=== PATIENT | female | born 1945 | race Caucasian/White ===

== ENCOUNTER → 2016-07-08 | Outpatient (REF) | payer OTHER, MEDICARE ==
[2016-07-10 00:07] LABS: Lyme Disease IgG/IgM Antibodie <0.91 ISR (0.00-0.90); Lyme Disease IgM Ab Quantitati <0.80 index (0.00-0.79)
== END ==
LOC: M LAB REF 12:26
PROVIDERS: ATTEND Nurse Practitioner Family
DX: R21 Rash and other nonspecific skin eruption (principal)

== ENCOUNTER → 2016-07-22 | Outpatient (CLI) | payer MEDICARE, BC, OTHER ==
--- NOTE | 2016-07-23 03:50 | REP ---
Clinical: Pain. Technique: AP, lateral, bilateral oblique views of the left foot. Findings: Age-related degenerative changes are appreciated primarily involving the interphalangeal joints and tarsometatarsal joints. Lateral view demonstrates large calcaneal heal spur. No acute fracture dislocation. Surrounding soft tissues are unremarkable. Impression: Age-related degenerative changes as noted above. Signed by Richard Calzada MD 07/23/2016 03:41 A
== END ==
LOC: M WUC 18:58
PROVIDERS: ATTEND Physician Assistant
DX: M79.672 Pain in left foot (principal)

== ENCOUNTER → 2016-09-11 | Outpatient (REF) | payer MEDICARE, OTHER, BC ==
[~2016-09-11] MED LIST: CALC600T31 PO; CALC600T57 PO; CLAR10CA3 PO; GLUC500T53 PO; HAIRTAB5 PO; LEVO88TA3 PO; OMEP40CA2 PO; REFR0.5D8 OU; SUCR1TA PO; TIMO0.5S4 OD; VITA2000 PO; VITMTA PO
== END ==
LOC: M LAB REF 16:38
PROVIDERS: ATTEND Nurse Practitioner Adult Health
DX: R35.0 Frequency of micturition (principal); Z57.8 Occupational exposure to other risk factors

== ENCOUNTER 2017-01-09 12:43 | Observation (INO) | payer MEDICARE, BC, OTHER ==
[~2017-01-09] VITALS: Ht 157.5 cm; Wt 58.2 kg
[2017-01-09] MEDS ORDERED: VITA2000 PO (12:59)
[2017-01-09] MEDS ORDERED: CALC600T57 PO (12:59)
[2017-01-09] MEDS ORDERED: LEVO88TA3 PO (12:59)
[2017-01-09] MEDS ORDERED: SUCR1TA PO (12:59)
[2017-01-09] MEDS ORDERED: GLUC500T53 PO (12:59)
[2017-01-09] MEDS ORDERED: OMEP40CA2 PO (12:59)
[2017-01-09] MEDS ORDERED: CLAR10CA3 PO (12:59)
--- NOTE | 2017-01-09 13:35 | REP ---
CT of the brain without IV contrast: Comparison is 05/24/2003. There is a 1.4 cm density at the vertex , para falcine on the right . This was not present previously and could represent a focal hemorrhage or a mass. MRI is recommended for further evaluation. There is no other evidence of hemorrhage or mass. The cortical stripe is unremarkable. Ventricles and sulci are mildly dilated compatible with diffuse volume loss. There is no edema, mass effect or midline shift. The visualized paranasal sinuses and mastoid air cells are clear. Impression: Focal hemorrhage versus mass at the vertex, para falcine on the right, not present previously. MRI follow-up is recommended. Otherwise, negative CT of the brain. Sign taking Signed by Abhi Virk MD 01/09/2017 01:26 P
[2017-01-09 13:40] LABS: BASO % 0.6 % (0.0-1.0); EOS # 0.1 10^3/uL (0.0-0.50); EOS % 1.2 % (0.0-3.0); IMMATURE GRANULOCYTE % 0.2 % (0-0); LYMPH # 1.8 10^3/uL (1.5-4.5); LYMPH % 27.7 % (24.0-44.0); MEAN CORPUSCULAR HEMOGLOBIN 30.3 pg (27.0-33.0); MEAN CORPUSCULAR HGB CONC 32.8 g/dl (32.0-36.5); MEAN CORPUSCULAR VOLUME 92.4 fl (80.0-96.0); MONO # 0.8 10^3/uL (0.0-0.8); MONO % 11.5 % (0.0-5.0); NEUTROPHILS # 3.8 10^3/uL (1.8-7.7); NEUTROPHILS % 58.8 % (36.0-66.0); PLATELET COUNT, AUTOMATED 278 10^3/uL (150-450); RED CELL DISTRIBUTION WIDTH 13.3 % (11.5-14.5); WHITE BLOOD COUNT 6.5 10^3/uL (4.0-10.0)
[2017-01-09 13:53] LABS: INR 0.96
[2017-01-09 14:06] LABS: ANION GAP 7 MEQ/L (8-16); BLOOD UREA NITROGEN 14 MG/DL (7-18); CALCIUM LEVEL 8.7 MG/DL (8.8-10.2); CARBON DIOXIDE LEVEL 29 MEQ/L (21-32); CHLORIDE LEVEL 105 MEQ/L (98-107); CREATININE FOR GFR 0.78 MG/DL (0.55-1.02); GLOMERULAR FILTRATION RATE > 60.0 (>39); GLUCOSE, FASTING 95 MG/DL (83-110); MAGNESIUM LEVEL 2.4 MG/DL (1.8-2.4); SODIUM LEVEL 141 MEQ/L (136-145); T UPTAKE 33 % (30-39); THYROXINE (T4) 10.9 UG/DL (4.5-12.0)
[2017-01-09 14:09] LABS: FOLATE > 24.0 NG/ML (>5.4); VITAMIN B12 LEVEL 853 PG/ML (247-911)
[2017-01-09] MEDS ORDERED: MORPHINE 2 MG/ML 1ML SYRINGE IV ONE (14:15)
[2017-01-09] MEDS ORDERED: ONDANSETRON 4MG/2ML VIAL (J2405) IV ONE (14:15)
[2017-01-09] MEDS ORDERED: PROHANCE 279.3MG/ML 15ML VIAL (A9576) As Ordered ONE (15:02)
--- NOTE | 2017-01-09 15:41 | REP ---
MR angiography the brain without contrast: History: Mass versus bleed at the vertex. Comparison is made with today's CT study of the brain. Technique: 3-D [id number] MR angiography of the brain is acquired in the usual fashion and maximal intensity projection images were generated in rotational format about the vertical and horizontal axes. In addition, source axial T1-weighted images are viewed in cine mode. MR angiographic findings: The distal vertebral arteries are patent and co-dominant. Basilar artery is a little tortuous but widely patent. The posterior cerebral and superior cerebellar vessels are normal and symmetric. The distal internal carotid arteries are unremarkable. Anterior and middle cerebral arteries appear intact. There is no visible saha aneurysm or arteriovenous malformation. Impression: Unremarkable MR angiography the brain. Signed by Jose Chahal MD 01/09/2017 03:33 P
[2017-01-09] MEDS ORDERED: ASPIRIN 81 MG CHEW TABLET PO ONE (16:15)
--- NOTE | 2017-01-09 16:21 | REP ---
MRI brain without and with IV gadolinium: History: Today's CT study showed a 1.4 cm density at the apex on the right side. MRI imaging was recommended. Gadolinium enhancement dose: 14 mL of intravenous ProHance. MR technique: Axial coronal and sagittal imaging planes utilized. T1 and T2-weighted sequences include spin-echo, fast spin echo, FLAIR, and diffusion weighted scans. MRI findings: No bony calvarial defect is seen. No intraorbital abnormality is seen. There is no MR evidence of significant paranasal sinus disease. The nodule seen on CT is noted to be a pleural-based nodule, 1.3 cm in greatest diameter, this is attached to the dural surface of the vertex. It is essentially isointense with brain on precontrast study. It enhances homogeneously on postcontrast images and is felt to be a benign meningioma. No other intracranial mass lesion is seen. No other abnormal gadolinium enhancement is seen. Craniocervical junction and upper cervical cord are normal in appearance. Diffusion weighted scan show no evidence to suggest infarction or other cause of restricted diffusion. There are some scattered small vessel atherosclerotic changes in the periventricular white matter and there is minimal diffuse atrophy. Impression: Minimal diffuse atrophy and small vessel changes. 1.3 cm benign meningioma in the right vertex. No other significant finding. Signed by Jose Chahal MD 01/09/2017 07:17 P
[2017-01-09] MEDS ORDERED: ACETAMINOPHEN TAB 650MG DOSE (2X325MG) PO PRN (17:00)
[2017-01-09] MEDS ORDERED: ONDANSETRON 4MG/2ML VIAL (J2405) IV PRN (17:00)
[2017-01-09] MEDS ORDERED: PERCOCET 5MG/325MG TAB PO PRN (17:00)
[2017-01-09] MEDS ORDERED: REFR0.5D8 OU (17:02)
[2017-01-09] MEDS ORDERED: VITMTA PO (17:02)
[2017-01-09] MEDS ORDERED: TIMO0.5S4 OD (17:02)
[2017-01-09] MEDS ORDERED: HAIRTAB5 PO (17:02)
[2017-01-09] MEDS ORDERED: CALC600T31 PO (17:02)
[2017-01-09 17:39] LABS: CHOLESTEROL LEVEL 239 MG/DL (<200); TRIGLYCERIDES LEVEL 112 MG/DL (<150)
--- NOTE | 2017-01-09 18:08 | HPE ---
DATE OF ADMISSION: 01/09/2017 PRIMARY CARE PROVIDER: Dr. Arvin Kirk HISTORY OF PRESENT ILLNESS: This patient is a 71-year-old female with a history significant for hypothyroidism, gastroesophageal reflux disease (GERD), who presented to [facility] on 01/09/2017 for worsening left facial burning sensation and difficulty finding correct speech. During the encounter, patient's was also present in the room. Information was gathered from both the patient and patient's . Patient started having a burning sensation and some numbness of the left lower jaw and the sensation also occurring in the left cheek. It started approximately 3-4 months ago and the symptoms started to become worse and become more frequent. In the last six months, the patient has been having difficulty finding the right word to express herself and on a few occasions, people think she has slurred speech. In the past three weeks, patient noted the sensation that her tongue has felt swollen. Patient also has started to feel palpations in the left neck. Patient is not sure whether she has a visual disturbance. Patient had recent eye surgery and patient is in process of getting the correct lenses. An MRI was performed in the emergency room. Patient was found to have a benign hemangioma of the right side and hospitalist team was called for admission. PAST MEDICAL HISTORY: 1. Hypothyroidism. 2. Gastroesophageal reflux disease (GERD). 3. Hiatal hernia. PAST SURGICAL HISTORY: 1. Eye surgery in 2017. 2. Tonsillectomy. SOCIAL HISTORY: Denied smoking. Drinks beer or wine two times a week. Denies any recreational drug use. OBJECTIVE: VITAL SIGNS: Temperature 98.9, pulse 57, respirations 18, blood pressure 155/71, pulse oximetry 99% on room air. GENERAL: No signs of acute distress. Alert and oriented times three. HEENT: Normocephalic, atraumatic. Extraocular motor grossly intact. CARDIOVASCULAR: Positive S1, S2. Regular rate. RESPIRATORY: Clear to auscultation bilaterally. ABDOMEN: Nontender, nondistended. Bowel sounds present. MUSCULOSKELETAL: No lower extremity edema. No signs of cyanosis. NEUROLOGICAL: Patient's speech is tangential, since patient has been using the wrong words to express herself, not as fluent. Cranial nerves II-XII grossly intact. Sensation to fine touch is enhanced on the left cheek and left jaw. Otherwise, sensation is grossly intact bilaterally. Strength 5/5. LABORATORY DATA: WBC 6.5, hemoglobin 12.7, hematocrit 38.7, platelet count 278. Sodium 141, potassium 4, chloride 105, carbon dioxide 29, BUN 14, creatinine 0.18, GFR greater than 60, fasting glucose 95, calcium 8.7, magnesium 2.4. Total CK: 84. Troponin-I: Less than 0.02. Vitamin B12: 853. Folic acid: Greater than 24. TSH: 1.52. Free T4 level: 10.9. PT: 12.9. INR: 0.96. IMAGING STUDIES: CT of the head without contrast showed focal hemorrhages versus mass at the vertex. Para falcine on the right. MRA of the brain without contrast showed an unremarkable angiogram of the brain. MRI of the brain with and without contrast showed minimal diffuse atrophy and small vessel changes, 1.3 cm benign meningioma in the right vertex. No other significant findings. ASSESSMENT AND PLAN: 1. Left facial tingling and numbness. Admitted to the progressive care unit (PCU) under observation status. Patient's MRI found patient has a 1.3 cm benign meningioma. Case discussed with neurology, Dr. Atkins. It is most likely patient symptoms are due to the hemangioma. Transient ischemic attack (TIA) and stroke are part of the differential based on patient's history and imaging study, not high on the differential. Patient does complain about a pulsating sensation of the left neck. Go forward with a carotid ultrasound. Initially, Dr. Burns was contacted by the emergency physician and was informed that there was no intervention for the patient. 2. Hypothyroidism. Continue Synthroid. TSH and Free T4 within normal range. 3. Gastroesophageal reflux disease (GERD). On Protonix. 4. Deep venous thrombosis (DVT) prophylaxis. On heparin.
[2017-01-09 18:30] VITALS: BP 134/61
[2017-01-09 20:00] VITALS: BP 112/57
--- NOTE | 2017-01-09 20:00 | REPUSA ---
Clinicaly History: left facial tingling. Findings: Real-Time carotid duplex ultrasound with color Doppler flow was performed. Normal color Dop pler flow and arterial waveforms are noted. Mild atherosclerotic plaque is seen in the region of the carotid bulbs bilaterally. No elevated velocities are seen however. Antegrade blood flow is seen in t he vertebral arteries bilaterally. There is no evidence of subclavian steal. The right ICA/CCA ratio measures 0.87, and the left measures 0.84. Impression: No evidence of hemodynamically significant stenosis in the carotid arterial system bilate rally. Mild atherosclerotic plaque is seen in the region of the carotid bulbs bilaterally.
[2017-01-09] MEDS: HEPARIN SOD (PORCINE) 5000 UNITS/ML VIAL SC SCH (22:47)
[2017-01-10] VITALS: BP 127/58
[2017-01-10 04:00] VITALS: BP 133/61
--- NOTE | 2017-01-10 04:32 | ECGEPIP ---
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
[2017-01-10 05:22] LABS: MEAN CORPUSCULAR HEMOGLOBIN 30.4 pg (27.0-33.0); MEAN CORPUSCULAR HGB CONC 33.3 g/dl (32.0-36.5); MEAN CORPUSCULAR VOLUME 91.3 fl (80.0-96.0); PLATELET COUNT, AUTOMATED 271 10^3/uL (150-450); RED CELL DISTRIBUTION WIDTH 13.4 % (11.5-14.5); WHITE BLOOD COUNT 7.2 10^3/uL (4.0-10.0)
[2017-01-10 05:33] LABS: ANION GAP 7 MEQ/L (8-16); BLOOD UREA NITROGEN 15 MG/DL (7-18); CALCIUM LEVEL 8.5 MG/DL (8.8-10.2); CARBON DIOXIDE LEVEL 27 MEQ/L (21-32); CHLORIDE LEVEL 108 MEQ/L (98-107); CREATININE FOR GFR 0.62 MG/DL (0.55-1.02); GLOMERULAR FILTRATION RATE > 60.0 (>39); GLUCOSE, FASTING 93 MG/DL (83-110); MAGNESIUM LEVEL 2.3 MG/DL (1.8-2.4); SODIUM LEVEL 142 MEQ/L (136-145)
[2017-01-10] MEDS ORDERED: LEVOTHYROXINE 88MCG TABLET (0.088 MG) PO SCH (06:00)
[2017-01-10] MEDS: HEPARIN SOD (PORCINE) 5000 UNITS/ML VIAL SC SCH ×2 (06:45→13:33)
[2017-01-10 08:00] VITALS: BP 110/56
[2017-01-10] MEDS ORDERED: MULTIVITAMINS/MINERALS THERAP 1 TAB PO SCH (09:00)
[2017-01-10] MEDS ORDERED: LORATADINE 10 MG TAB PO SCH (09:00)
[2017-01-10] MEDS ORDERED: PANTOPRAZOLE 40MG TAB (PROTONIX) PO SCH (09:00)
[2017-01-10] MEDS ORDERED: TIMOLOL MALEATE 0.5% OPHTH SOLN 5 ML OD SCH (09:00)
[2017-01-10 12:00] VITALS: BP 121/56
[2017-01-10 16:00] VITALS: BP 127/59
--- NOTE | 2017-01-10 16:50 | DSES ---
DATE OF ADMISSION: 01/09/2017 DATE OF DISCHARGE: 01/10/2017 PRIMARY CARE PROVIDER: Delfino Franco. REFERRING PHYSICIAN: None. CONSULTING PHYSICIAN: Dr. Unique Atkins. CONDITION ON DISCHARGE: Stable. FINAL DIAGNOSIS: Left-sided facial numbness and tingling, possibly secondary to nerve compression. PROCEDURES: None. HISTORY OF PRESENT ILLNESS: The patient is a 71-year-old female with past medical history of hypothyroidism, hiatal hernia and gastroesophageal reflux disease (GERD), who presented to the emergency room (ER) with complaints of left-sided facial burning sensation and difficulty finding the correct words to speak. The patient was admitted for possible transient ischemic attack (TIA) versus trigeminal neuralgia. Neurology was consulted. HOSPITAL COURSE: 1. Left-sided facial tingling and numbness, possibly secondary to trigeminal nerve impingement secondary to the way the patient sleeps. The patient had symptoms occur more often when depending on position. Physical did not reveal any sensation deficit or weakness of the facial muscles. Labs were within normal limits. Imaging head CT, brain MRI, brain MRA, and vascular ultrasound did not reveal any signs of acute stroke; however, did reveal signs of 1.3 cm benign meningioma in the right vertex. Neurology was consulted, and cleared for discharge and advised outpatient followup. The patient was advised to followup with neurology as an outpatient. The patient was cleared from neurology standpoint. 2. Hypothyroidism. Continue with Synthroid. 3. GERD/hiatal hernia. Continue Protonix. 4. Deep venous thrombosis (DVT) prophylaxis. Continue with heparin. DISCHARGE MEDICATIONS: The patient is being discharged home with the following medication list: - calcium 600 mg by mouth daily - Refresh tears one drop each eye as needed for dry eyes - levothyroxine 88 mcg by mouth daily - loratadine 10 mg by mouth daily - multiple vitamin one tablet by mouth daily - omeprazole 40 mg by mouth daily - timolol eye drops one drop in each eye daily DISCHARGE INSTRUCTIONS: The patient has been advised to followup with primary care provider as well as neurology within the next seven days. She has been advised to remain compliant with treatment plan and medications, and to return to the emergency room if she continues with any problems. TIME SPENT ON DISCHARGE: Greater than 35 minutes.
[2017-01-11 00:06] LABS: Lyme Disease IgG/IgM Antibodie <0.91 ISR (0.00-0.90); Lyme Disease IgM Ab Quantitati <0.80 index (0.00-0.79)
--- NOTE | 2017-01-11 14:32 | ECHO ---
DATE OF STUDY: 01/10/2017 REFERRING PHYSICIAN: Dr. Kristine Ulloa INDICATION: Transient cerebral ischemia, unspecified. HEIGHT: 61 inches. WEIGHT: 154 pounds. 2-D Measurements: Aortic root: 3.2 cm Proximal ascending aorta: 3.0 cm Left atrium: 3.7 cm Ventricular septum: 0.97 cm Posterior wall: 0.96 cm Left ventricle diastole: 4.3 cm Left ventricle systole: 2.8 cm Right ventricle: 2.9 cm Doppler Measurements: Aortic valve velocity: 124 cm/sec LVOT velocity: 130 cm/sec LVOT VTI: 28.1 cm Mild mitral regurgitation Mitral E velocity: 131 cm/sec Mitral A velocity: 127 cm/sec Mitral deceleration time: 169 ms Mild tricuspid regurgitation Estimated right ventricle systolic pressure: 26 mmHg assuming a right atrial pressure 5 mmHg MITRAL ANNULAR TISSUE DOPPLER: E-prime lateral: 10.3 cm/sec E-prime septal: 9.7 cm/sec DESCRIPTION: The rhythm was sinus. Image quality was fair. No pericardial effusion. This was a 2-D, M-mode, color flow Doppler and pulse wave Doppler examination, including mitral annular tissue Doppler. CONCLUSIONS: 1. Normal left ventricle internal dimensions and wall thickness. 2. Normal regional LV wall motion and wall thickening. Normal LV systolic function with LVEF 65% by visual estimate. Normal LV diastolic function. 3. Mild mitral annular calcification. Mild mitral regurgitation. 4. Left pleural effusion. 5. Otherwise normal appearing echocardiogram-Doppler.
--- NOTE | 2017-01-12 15:34 | CR ---
DATE OF CONSULTATION: 01/09/2017 REFERRING PROVIDER: Kristine Ulloa DO REASON FOR CONSULTATION: Left facial paresthesias. HISTORY OF PRESENTING ILLNESS: Chiquis French is a 71-year-old female with a past medical history significant for hypothyroidism, presenting with a chief complaint of having intermittent symptoms of left lower jaw paresthesias described as a warm feeling and sometimes tingling feeling, worsening when she sleeps on her left side of her face. She denies any sharp shooting lancinating pains. The paresthesias are not worsened by chewing or talking. The patient denies having any headaches. She has not had any other neurological symptoms associated with this. She denies any weakness or numbness of her arms or legs. She denies any chest pain, shortness of breath, or dizziness. In the emergency department, the patient had an MRI of the brain with and without contrast showing diffuse enhancement of a 1.3 cm right of the vertex meningioma. The patient did not have any stenosis of the carotid blood vessels and MR angiogram of the head was negative. The patient was given aspirin 325 mg once in the emergency department. She is being admitted for a transient ischemic attack (TIA) workup. She will be on telemetry monitoring during the hospital admission. The patient herself denies any sudden change or neurological symptom occurring within the last 24-48 hours. She states that she has been having difficulty with her speech over the last 6 months, sometimes having difficulty finding the right word to say on occasion. She denies any dysarthria or dysphonia or dysphagia. PAST MEDICAL HISTORY: Hypothyroidism, gastroesophageal reflux disease, hiatal hernia. PAST SURGICAL HISTORY: Eye surgery in 2006, tonsillectomy. FAMILY HISTORY: Noncontributory. ALLERGIES: No known drug allergies. SOCIAL HISTORY: The patient denies use of any tobacco or any illicit drugs. Occasionally drinks wine. PHYSICAL EXAMINATION: Blood pressure 110/56, pulse rate 71, respiratory rate 19, temperature 99.1 degrees Fahrenheit, oxygenation 96% on room air. The patient is awake, alert, oriented to person, place, and time. Speech, language, comprehension, and repetition are intact. Pupils are 3 mm, round, and reactive to light. Extraocular movements are intact in all directions. Sensation V1, V2, V3 are intact to light touch. There is no facial asymmetry to activation. Palate elevates symmetrically. Tongue is midline. There is no weakness of sternocleidomastoids bilaterally. Hearing is subjectively equal to finger rub. There is no pronator drift. Strength is 5/5 including bilateral deltoid, biceps, triceps, hand home health care coordinator, iliopsoas, quadriceps, anterior tibialis. Deep tendon reflexes are 2s in the upper extremities, reduced in the lower extremities. Romberg testing deferred. Sensory is intact to light touch, temperature in all four extremities and the face bilaterally. Coordination normal [id number] without any signs of ataxia or dysmetria. ASSESSMENT: 1. Transient intermittent paresthesias of the left lower face resulting from sleeping on the left side of her face. 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 Incidental finding of a 1.3 cm right of the vertex meningioma. 2. Intermittent difficulty with word finding. PLAN: 1. Recommend outpatient observation management for the right-sided meningioma. 2. Recommend avoiding sleeping on the left side of the face causing transient compression of the V3 branch of the 5th cranial nerve. 3. MR angiogram does not reveal any aneurysm or any other intravascular mass. 4. Hold off on starting any neuropathic pain medication as the paresthesias of the left lower face is not painful. 5. Complete transient ischemic attack (TIA) workup. 6. Case discussed with Dr. Ishmael Raya.
== END 2017-01-10 17:31 | disposition home or self-care (01) ==
LOC: EDBD 12:43 → M ED 12:43 → M ED INP 16:49 → M PCU 18:22
PROVIDERS: ADMIT Internal Medicine; ATTEND Internal Medicine
DX: R20.2 Paresthesia of skin (principal); E03.9 Hypothyroidism, unspecified; K21.9 Gastro-esophageal reflux disease without esophagitis; K44.9 Diaphragmatic hernia without obstruction or gangrene; D32.9 Benign neoplasm of meninges, unspecified; I77.1 Stricture of artery; G31.9 Degenerative disease of nervous system, unspecified; Z79.899 Other long term (current) drug therapy
CPT/HCPCS: 36415; 70450; 70544; 70553; 80048; 80061; 82550; 82553; 82607; 82746; 83735; 84436; 84443; 84479; 84484; 85025; 85027; 85610; 85730; 86617; 93005; 93041; 93306; 93880; 94760; 96372; 99285; A9576; G0378

== ENCOUNTER → 2017-04-28 | Outpatient (REF) | payer MEDICARE, BC, OTHER ==
[2017-04-28 17:46] LABS: CREATININE FOR GFR 0.73 MG/DL (0.55-1.30); GLOMERULAR FILTRATION RATE > 60.0 (>39)
[2017-04-28 17:46] LABS: BLOOD UREA NITROGEN 14 MG/DL (7-18)
== END ==
LOC: M LABNEURO 15:45
DX: I10 Essential (primary) hypertension (principal)
CPT/HCPCS: 82565

== ENCOUNTER → 2017-08-06 | Outpatient (CLI) | payer MEDICARE, BC, OTHER ==
[2017-08-06 16:31] LABS: BASO # 0.1 10^3/uL (0.0-0.2); BASO % 0.8 % (0.0-1.0); EOS # 0.1 10^3/uL (0.0-0.50); EOS % 1.8 % (0.0-3.0); HEMOGLOBIN 12.5 g/dl (12.0-15.5); IMMATURE GRANULOCYTE % 0.3 % (0-3.0); LYMPH # 1.7 10^3/uL (1.5-4.5); LYMPH % 26.7 % (24.0-44.0); MEAN CORPUSCULAR HEMOGLOBIN 30.6 pg (27.0-33.0); MEAN CORPUSCULAR HGB CONC 32.1 g/dl (32.0-36.5); MEAN CORPUSCULAR VOLUME 95.6 fl (80.0-96.0); MONO # 0.8 10^3/uL (0.0-0.8); MONO % 12.3 % (0.0-5.0); NEUTROPHILS # 3.6 10^3/uL (1.8-7.7); NEUTROPHILS % 58.1 % (36.0-66.0); PLATELET COUNT, AUTOMATED 315 10^3/uL (150-450); RED BLOOD COUNT 4.08 10^6/uL (4.00-5.40); RED CELL DISTRIBUTION WIDTH 13.5 % (11.5-14.5); WHITE BLOOD COUNT 6.2 10^3/uL (4.0-10.0)
[2017-08-06 17:01] LABS: ALBUMIN 3.5 GM/DL (3.2-5.2); ALBUMIN/GLOBULIN RATIO 1.03 (1.00-1.93); ALKALINE PHOSPHATASE 93 U/L (45-117); ALT/SGPT 22 U/L (12-78); ANION GAP 6 MEQ/L (8-16); AST/SGOT 18 U/L (7-37); BILIRUBIN,TOTAL 0.3 MG/DL (0.2-1.0); BLOOD UREA NITROGEN 16 MG/DL (7-18); CALCIUM LEVEL 8.7 MG/DL (8.8-10.2); CARBON DIOXIDE LEVEL 30 MEQ/L (21-32); CHLORIDE LEVEL 108 MEQ/L (98-107); CREATININE FOR GFR 0.69 MG/DL (0.55-1.30); GLOMERULAR FILTRATION RATE > 60.0 (>39); GLUCOSE, FASTING 79 MG/DL (70-100); POTASSIUM SERUM 4.4 MEQ/L (3.5-5.1); SODIUM LEVEL 144 MEQ/L (136-145); TOTAL PROTEIN 6.9 GM/DL (6.4-8.2)
== END ==
LOC: M WUC 10:52
DX: R10.84 Generalized abdominal pain (principal)
CPT/HCPCS: 80053

== ENCOUNTER 2017-08-24 15:00 | Observation (INO) | payer MEDICARE, BC, OTHER ==
[2017-08-24 15:39] LABS: BASO # 0.1 10^3/uL (0.0-0.2); BASO % 0.6 % (0.0-1.0); EOS # 0.1 10^3/uL (0.0-0.50); EOS % 1.2 % (0.0-3.0); HEMATOCRIT 40.4 % (36.0-47.0); HEMOGLOBIN 13.2 g/dl (12.0-15.5); IMMATURE GRANULOCYTE % 0.4 % (0-3.0); LYMPH # 1.8 10^3/uL (1.5-4.5); LYMPH % 21.5 % (24.0-44.0); MEAN CORPUSCULAR HEMOGLOBIN 30.2 pg (27.0-33.0); MEAN CORPUSCULAR HGB CONC 32.7 g/dl (32.0-36.5); MEAN CORPUSCULAR VOLUME 92.4 fl (80.0-96.0); MONO # 0.8 10^3/uL (0.0-0.8); MONO % 9.2 % (0.0-5.0); NEUTROPHILS # 5.6 10^3/uL (1.8-7.7); NEUTROPHILS % 67.1 % (36.0-66.0); PLATELET COUNT, AUTOMATED 287 10^3/uL (150-450); RED BLOOD COUNT 4.37 10^6/uL (4.00-5.40); RED CELL DISTRIBUTION WIDTH 13.1 % (11.5-14.5); WHITE BLOOD COUNT 8.3 10^3/uL (4.0-10.0)
[2017-08-24 16:07] LABS: INR 0.91; PARTIAL THROMBOPLASTIN TIME 30.3 SECONDS (26.8-37.9); PROTHROMBIN TIME 12.3 SECONDS (12.4-14.5)
[2017-08-24 16:18] LABS: ANION GAP 4 MEQ/L (8-16); BLOOD UREA NITROGEN 14 MG/DL (7-18); CALCIUM LEVEL 8.8 MG/DL (8.8-10.2); CARBON DIOXIDE LEVEL 31 MEQ/L (21-32); CHLORIDE LEVEL 108 MEQ/L (98-107); CK-MB VALUE MASS 2.3 NG/ML (<3.6); CPK CREATINE PHOSPHOKINASE 115 U/L (26-192); CREATININE FOR GFR 0.76 MG/DL (0.55-1.30); GLOMERULAR FILTRATION RATE > 60.0 (>39); GLUCOSE, FASTING 147 MG/DL (70-100); POTASSIUM SERUM 3.6 MEQ/L (3.5-5.1); SODIUM LEVEL 143 MEQ/L (136-145); TROPONIN I < 0.02 NG/ML (< 0.10)
[2017-08-24] MEDS: ASPIRIN 325 MG TAB PO ×2 (17:33)
[2017-08-24] MEDS ORDERED: ONDANSETRON 4MG/2ML VIAL (J2405) IV ×2 (21:15)
[2017-08-24] MEDS ORDERED: LORATADINE 10 MG TAB PO ×2 (21:15)
[2017-08-24] MEDS: MECLIZINE 25 MG TABLET PO ×2 (22:00)
[2017-08-25] MEDS: LEVOTHYROXINE 88MCG TABLET (0.088 MG) PO ×2 (05:39)
[2017-08-25 06:18] LABS: HEMATOCRIT 38.7 % (36.0-47.0); MEAN CORPUSCULAR HEMOGLOBIN 30.7 pg (27.0-33.0); MEAN CORPUSCULAR HGB CONC 33.6 g/dl (32.0-36.5); MEAN CORPUSCULAR VOLUME 91.3 fl (80.0-96.0); PLATELET COUNT, AUTOMATED 286 10^3/uL (150-450); RED BLOOD COUNT 4.24 10^6/uL (4.00-5.40); RED CELL DISTRIBUTION WIDTH 13.2 % (11.5-14.5); WHITE BLOOD COUNT 7.5 10^3/uL (4.0-10.0)
[2017-08-25 06:39] LABS: ALBUMIN 3.2 GM/DL (3.2-5.2); ALBUMIN/GLOBULIN RATIO 0.86 (1.00-1.93); ALKALINE PHOSPHATASE 80 U/L (45-117); ALT/SGPT 18 U/L (12-78); ANION GAP 6 MEQ/L (8-16); AST/SGOT 16 U/L (7-37); BILIRUBIN,TOTAL 0.4 MG/DL (0.2-1.0); BLOOD UREA NITROGEN 11 MG/DL (7-18); CALCIUM LEVEL 8.5 MG/DL (8.8-10.2); CARBON DIOXIDE LEVEL 28 MEQ/L (21-32); CHLORIDE LEVEL 110 MEQ/L (98-107); CREATININE FOR GFR 0.67 MG/DL (0.55-1.30); GLOMERULAR FILTRATION RATE > 60.0 (>39); GLUCOSE, FASTING 89 MG/DL (70-100); MAGNESIUM LEVEL 2.4 MG/DL (1.8-2.4); POTASSIUM SERUM 3.8 MEQ/L (3.5-5.1); SODIUM LEVEL 144 MEQ/L (136-145); TOTAL PROTEIN 6.9 GM/DL (6.4-8.2)
[2017-08-25] MEDS: OMEPRAZOLE 20 MG CAP PO ×2 (08:09)
[2017-08-25] MEDS: MECLIZINE 25 MG TABLET PO ×2 (08:09)
[2017-08-25] MEDS: ACETAMINOPHEN TAB 650MG DOSE (2X325MG) PO ×4 (08:11→19:00)
[2017-08-25] MEDS: ENOXAPARIN 30 MG/0.3 ML SYR (J1650) SC ×2 (08:12)
[2017-08-25] MEDS ORDERED: MECLIZINE 12.5 MG TAB PO ×2 (19:45)
[2017-08-25] MEDS: TIMOLOL MALEATE 0.5% OPHTH SOLN 5 ML OU ×2 (20:37)
[2017-08-26] MEDS: LEVOTHYROXINE 88MCG TABLET (0.088 MG) PO ×2 (05:52)
[2017-08-26 07:05] LABS: HEMATOCRIT 41.1 % (36.0-47.0); HEMOGLOBIN 13.7 g/dl (12.0-15.5); MEAN CORPUSCULAR HEMOGLOBIN 30.4 pg (27.0-33.0); MEAN CORPUSCULAR HGB CONC 33.3 g/dl (32.0-36.5); MEAN CORPUSCULAR VOLUME 91.3 fl (80.0-96.0); PLATELET COUNT, AUTOMATED 299 10^3/uL (150-450); RED CELL DISTRIBUTION WIDTH 13.2 % (11.5-14.5); WHITE BLOOD COUNT 8.3 10^3/uL (4.0-10.0)
[2017-08-26 07:42] LABS: ALBUMIN 3.4 GM/DL (3.2-5.2); ALBUMIN/GLOBULIN RATIO 0.85 (1.00-1.93); ALKALINE PHOSPHATASE 86 U/L (45-117); ALT/SGPT 19 U/L (12-78); ANION GAP 10 MEQ/L (8-16); AST/SGOT 13 U/L (7-37); BILIRUBIN,TOTAL 0.3 MG/DL (0.2-1.0); BLOOD UREA NITROGEN 16 MG/DL (7-18); CALCIUM LEVEL 8.7 MG/DL (8.8-10.2); CARBON DIOXIDE LEVEL 26 MEQ/L (21-32); CHLORIDE LEVEL 108 MEQ/L (98-107); CREATININE FOR GFR 0.84 MG/DL (0.55-1.30); GLOMERULAR FILTRATION RATE > 60.0 (>39); GLUCOSE, FASTING 112 MG/DL (70-100); MAGNESIUM LEVEL 2.3 MG/DL (1.8-2.4); POTASSIUM SERUM 4.1 MEQ/L (3.5-5.1); SODIUM LEVEL 144 MEQ/L (136-145); TOTAL PROTEIN 7.4 GM/DL (6.4-8.2)
[2017-08-26] MEDS: ENOXAPARIN 30 MG/0.3 ML SYR (J1650) SC ×2 (09:00)
[2017-08-26] MEDS: ASPIRIN 81 MG ENTERIC TAB PO ×2 (09:25)
== END 2017-08-26 11:45 | disposition home or self-care (01) ==
LOC: M MS4PR 08-25 16:29 → M ED 15:00 → M ED INP 21:13 → M MSPAV 23:54
DX: R42 Dizziness and giddiness (principal); E03.9 Hypothyroidism, unspecified; K21.9 Gastro-esophageal reflux disease without esophagitis; R20.9 Unspecified disturbances of skin sensation; D32.0 Benign neoplasm of cerebral meninges; I67.82 Cerebral ischemia; R51 Headache; H40.9 Unspecified glaucoma; K44.9 Diaphragmatic hernia without obstruction or gangrene; Z79.899 Other long term (current) drug therapy
CPT/HCPCS: J1650

== ENCOUNTER 2017-08-28 13:15 | Outpatient (RCR) | payer MEDICARE, BC, OTHER | END 2017-09-12 | LOC: M PT 13:15 | DX: Z51.89 Encounter for other specified aftercare (principal); H81.20 Vestibular neuronitis, unspecified ear | CPT/HCPCS: 97110 ==

== ENCOUNTER 2017-09-23 11:15 | Outpatient (RCR) | payer MEDICARE, BC, OTHER | END 2017-10-13 | LOC: M PT 09-30 09:00 | DX: Z51.89 Encounter for other specified aftercare (principal); H81.20 Vestibular neuronitis, unspecified ear | CPT/HCPCS: 97110 ==

== ENCOUNTER → 2018-02-09 | Outpatient (CLI) | payer MEDICARE, BC, OTHER | LOC: M WUC 09:48 | DX: R05 Cough (principal); M51.24 Other intervertebral disc displacement, thoracic region | CPT/HCPCS: 71046 ==

== ENCOUNTER → 2018-03-24 | Outpatient (REF) | payer MEDICARE, OTHER ==
[~2018-03-24] MED LIST changes: +ASPI81TAEC PO; +MECL12.575 PO; -TIMO0.5S4 OD; +TIMO0.5S42 OU
[2018-03-28 08:37] LABS: F024-IgE Shrimp <0.10 kU/L (Class 0); F037-IGE MUSSEL <0.10 kU/L (Class 0); F338-IgE Oyster <0.10 kU/L (Class 0); F338-IgE Scallop <0.10 kU/L (Class 0)
== END ==
LOC: M LAB REF 17:11
PROVIDERS: ATTEND Internal Medicine
DX: R22.1 Localized swelling, mass and lump, neck (principal); Z91.018 Allergy to other foods; T78.1XXA Other adverse food reactions, not elsewhere classified, initial encounter; X58.XXXA Exposure to other specified factors, initial encounter; Y92.9 Unspecified place or not applicable

== ENCOUNTER → 2018-07-15 | Outpatient (CLI) | payer MEDICARE, OTHER ==
--- NOTE | 2018-07-15 12:37 | REP ---
UNILATERAL LEFT RIBS, PA CHEST, SIX VIEWS: HISTORY: Contusion. COMPARISON: 02/09/2018 The lungs are clear. The heart is normal in size. A pericardial cyst is present along the right heart border. The pulmonary vasculature is normal in appearance. The bony structure is intact. IMPRESSION: No acute disease. Electronically Signed by Mickey Jarrell MD 07/15/2018 12:43 P
== END ==
LOC: M WUC 11:50
PROVIDERS: ATTEND Physician Assistant
DX: S20.212A Contusion of left front wall of thorax, initial encounter (principal); X58.XXXA Exposure to other specified factors, initial encounter; Y92.89 Other specified places as the place of occurrence of the external cause

== ENCOUNTER → 2018-10-20 | Outpatient (REF) | payer MEDICARE, OTHER ==
[2018-10-20 16:21] LABS: BLOOD UREA NITROGEN 12 MG/DL (7-18); CREATININE FOR GFR 0.76 MG/DL (0.55-1.30); GLOMERULAR FILTRATION RATE > 60.0 (>39)
== END ==
LOC: M LABNEURO 13:05
PROVIDERS: ATTEND Psychiatry & Neurology Neurology
DX: I10 Essential (primary) hypertension (principal)

== ENCOUNTER 2019-01-11 13:27 | Outpatient (RCR) | payer MEDICARE, BC, OTHER ==
[~2019-01-11 13:27] MED LIST changes: -OMEP40CA2 PO; +OMEP40CA97 PO
== END 2019-01-13 ==
LOC: M ST 13:27
PROVIDERS: ATTEND Psychiatry & Neurology Neurology
DX: R47.01 Aphasia (principal)

== ENCOUNTER 2019-01-19 01:18 | Emergency (ER) | payer MEDICARE, BC, OTHER ==
[~2019-01-19] VITALS: Ht 157.5 cm; Wt 64.5 kg
[2019-01-19 01:43] LABS: BASO # 0.1 10^3/uL (0.0-0.2); BASO % 0.3 % (0.0-1.0); EOS # 0.1 10^3/uL (0.0-0.5); EOS % 0.5 % (0.0-3.0); HEMATOCRIT 40.8 % (36.0-47.0); HEMOGLOBIN 13.3 g/dl (12.0-15.5); LYMPH # 1.5 10^3/uL (1.5-5.0); LYMPH % 6.3 % (24.0-44.0); MEAN CORPUSCULAR HEMOGLOBIN 30.8 pg (27.0-33.0); MEAN CORPUSCULAR HGB CONC 32.6 g/dl (32.0-36.5); MEAN CORPUSCULAR VOLUME 94.4 fl (80.0-96.0); MONO % 10.5 % (0.0-5.0); NEUTROPHILS # 19.4 10^3/uL (1.5-8.5); NEUTROPHILS % 81.8 % (36.0-66.0); PLATELET COUNT, AUTOMATED 311 10^3/uL (150-450); RED BLOOD COUNT 4.32 10^6/uL (4.00-5.40); WHITE BLOOD COUNT 23.7 10^3/uL (4.0-10.0)
[2019-01-19 02:08] LABS: ALBUMIN 3.9 GM/DL (3.2-5.2); ALT/SGPT 23 U/L (12-78); BILIRUBIN,DIRECT 0.1 MG/DL (0.0-0.2); BILIRUBIN,TOTAL 0.3 MG/DL (0.2-1.0); CK-MB VALUE MASS 1.8 NG/ML (<3.6); CPK CREATINE PHOSPHOKINASE 95 U/L (26-192); LIPASE 160 U/L (73-393); MB/CK RELATIVE INDEX 1.89 (< OR =4); TOTAL PROTEIN 7.5 GM/DL (6.4-8.2); TROPONIN I < 0.02 NG/ML (< 0.10)
[2019-01-19] MEDS ORDERED: ISOVUE-370 76% 100ML VIAL (Q9967) As Ordered ONE (02:12)
[2019-01-19 02:14] LABS: MONO # 2.5 10^3/uL (0.0-0.8)
[2019-01-19] MEDS: ONDANSETRON 4MG/2ML VIAL (J2405) IV ONE ×2 (02:14→02:28)
[2019-01-19] MEDS ORDERED: NS 1,000 ML IV ONE (02:15)
[2019-01-19] MEDS ORDERED: KETOROLAC 30 MG/ML VIAL (J1885) IV ONE (02:15)
--- NOTE | 2019-01-19 03:13 | REPVR ---
PROCEDURE INFORMATION: Exam: CT Abdomen And Pelvis With Contrast Exam date and time: 01/19/2019 2:06 AM Clinical history: 73 years old, female; Generalized abd pain TECHNIQUE: Imaging protocol: Computed tomography of the abdomen and pelvis with intravenous contrast. Radiation optimization: All CT scans at this facility use at least one of these dose optimization techniques: automated exposure control; mA and/or kV adjustment per patient size (includes targeted exams where dose is matched to clinical indication); or iterative reconstruction. Contrast material: ISO; Contrast volume: 100 ml; Contrast route: AC; COMPARISON: CT ABD PELVIS WITH CONTRAST 04/03/2012 11:00 AM FINDINGS: Lungs: The imaged lung bases are clear. Heart: There is a 7.4 cm right pericardial cyst, which is stable compared to the prior CT on 04/03/2012. Diaphragm: There is a small fat containing right posterior diaphragmatic hernia. Liver: There are several cysts in the liver, the largest measuring 2.3 cm in the right hepatic lobe, some of which are larger compared to the prior CT on 04/03/2012. There is a chronic 2.1 cm wedge shaped region of low attenuation in the periphery of the superior medial segment 4A of the left hepatic lobe, which is stable compared to the prior CT on 04/03/2012. The contour of the liver is smooth. No hepatomegaly is noted. Gallbladder and bile ducts: No calcified gallstones are seen. No gallbladder wall thickening, pericholecystic fluid, or pericholecystic inflammatory changes are identified. No dilation of the intrahepatic or extrahepatic bile ducts is noted. Pancreas: Normal. No ductal dilation. Spleen: Normal. No splenomegaly. Adrenals: Normal. No mass. Kidneys and ureters: The kidneys are normal in appearance. No renal lesion is identified. No calculi are seen in the kidneys or ureters. There is no hydronephrosis or hydroureter. There are no wedge-shaped areas of low attenuation in the kidneys to suggest pyelonephritis. There is no renal abscess or perinephric fluid collection. Stomach and bowel: There is a 12 mm metallic density structure in the proximal transverse colon (image 63 of the axial series 201), which is new compared to the prior CT on 04/03/2012. There is colonic diverticulosis without evidence for diverticulitis. There is no evidence for a bowel obstruction, pneumatosis intestinalis, intussusception, volvulus, or perforated viscus. The transverse colon, descending colon, and rectosigmoid are decompressed, limiting their optimal evaluation. There is possible thickening of the wall of the transverse colon, descending colon, and sigmoid colon, which may be secondary to the decompressed state of these portions of the colon versus a colitis. There is no pericolonic inflammatory fat stranding. There is liquid feces in the cecum, ascending colon, and transverse colon. Appendix: Normal. No evidence for appendicitis. Intraperitoneal space: Unremarkable. No fluid collection. No free air. Retroperitoneal space: Unremarkable. No fluid collection. No mass. Vasculature: The abdominal aorta is patent, normal in caliber, and there is no dissection. The renal arteries, celiac artery, superior mesenteric artery, inferior mesenteric artery, iliac arteries, and common femoral arteries are patent. There are moderate atherosclerotic calcifications. The portal veins, splenic vein, superior mesenteric vein, inferior mesenteric vein, and renal veins are patent. Incidental note is made of small round calcifications in the pelvis, which are compatible with phleboliths. Lymph nodes: Normal. No enlarged lymph nodes. Bladder: Unremarkable. No calculi or masses are noted in the bladder. Reproductive: The anteverted uterus and ovaries are unremarkable. Incidental note is made of several punctate calcifications in the left ovary that can also be seen in the prior CT on 04/03/2012. Bones/joints: There are chronic bilateral L5 pars defects. No acute fracture is noted. There is no suspicious osteolytic or osteoblastic lesion. Incidental note is made of a small bone island in the right femoral head, which is unchanged compared to the prior CT on 04/03/2012. There is a mild levoscoliosis of the lumbar spine and degenerative changes in the lumbar spine. There is also osteoarthritis of the pubic symphysis. Soft tissues: Unremarkable. No hernia. IMPRESSION: 1. Possible thickening of the wall of the transverse colon, descending colon, and sigmoid colon, which may be secondary to the decompressed state of these portions of the colon versus a colitis. 2. Colonic diverticulosis without evidence for diverticulitis. 3. 12 mm metallic density structure in the proximal transverse colon, which should be correlated with the patient's ingestion history. Electronically signed by: Sudheer Manzanares On 01/19/2019 03:13:25 AM
[2019-01-19 03:30] VITALS: BP 106/56
[2019-01-19] MEDS ORDERED: ONDA4TAB6 PO (03:32)
--- NOTE | 2019-01-19 05:47 | ECGEPIP ---
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
== END 2019-01-19 03:47 | disposition home or self-care (01) ==
LOC: M ED 01:18
DX: K52.9 Noninfective gastroenteritis and colitis, unspecified (principal); T18.4XXA Foreign body in colon, initial encounter; K57.30 Diverticulosis of large intestine without perforation or abscess without bleeding; K21.9 Gastro-esophageal reflux disease without esophagitis; Z79.82 Long term (current) use of aspirin; Z79.899 Other long term (current) drug therapy
CPT/HCPCS: 74177; 80047; 80076; 82550; 82553; 83690; 84484; 85025; 93005; 93041; 96361; 96374; 96375; 99284; J1885; J2405; Q9967

== ENCOUNTER 2019-02-01 13:30 | Outpatient (RCR) | payer MEDICARE, BC, OTHER ==
[~2019-02-01 13:30] MED LIST changes: +ONDA4TAB6 PO
== END 2019-02-12 ==
LOC: M ST 13:30
PROVIDERS: ATTEND Psychiatry & Neurology Neurology
DX: R47.01 Aphasia (principal)

== ENCOUNTER → 2019-04-19 | Outpatient (CLI) | payer MEDICARE, BC, OTHER ==
[~2019-04-19] MED LIST changes: -MECL12.575 PO; +MECL12.589 PO
--- NOTE | 2019-04-19 14:58 | REP ---
Lumbar spine five views: Comparison is the abdomen/pelvis CT dated 01/19/2019. There is mild scoliosis convex left. There is degenerative disc disease at every lumbar level, most advanced at L4-5 and L5 S1. There are bilateral L5 pars interarticularis defects. There is no spondylolisthesis. The pedicles are unremarkable. There is facet osteoarthritis at the lower lumbar levels. The sacroiliac articulations are unremarkable. Impression: Multilevel degenerative disc disease, most severe at the the lower lumbar levels. Bilateral L5 spondylolysis. No spondylolisthesis. Facet osteoarthritis at the lower lumbar levels. Mild scoliosis. Electronically Signed by Abhi Virk MD 04/19/2019 02:50 P
--- NOTE | 2019-04-19 14:59 | REP ---
Right hip two views: Mineralization and joint space are normal. There is no femoral head deformity. There are no calcifications or foreign bodies. There is no fracture or dislocation. Impression: Negative right hip. If symptoms persist or worsen, consider MRI. Electronically Signed by Abhi Virk MD 04/19/2019 02:50 P
== END ==
LOC: M WUC 14:00
PROVIDERS: ATTEND Physician Assistant
DX: S76.011S Strain of muscle, fascia and tendon of right hip, sequela (principal); S39.012A Strain of muscle, fascia and tendon of lower back, initial encounter; M51.36 Other intervertebral disc degeneration, lumbar region; M41.86 Other forms of scoliosis, lumbar region; X58.XXXA Exposure to other specified factors, initial encounter; Y92.9 Unspecified place or not applicable

== ENCOUNTER 2020-06-21 16:51 | Emergency (ER) | payer MEDICARE, BC, OTHER ==
[~2020-06-21] VITALS: Ht 154.9 cm; Wt 61.6 kg
[~2020-06-21 16:51] MED LIST changes: +ASPI-569 PO; -ASPI81TAEC PO; +MECL-136 PO; -MECL12.589 PO
[2020-06-21 17:52] LABS: BASO % 0.4 % (0.0-1.0); EOS % 0.4 % (0.0-3.0); HEMATOCRIT 39.6 % (36.0-47.0); HEMOGLOBIN 12.9 g/dl (12.0-15.5); LYMPH # 1.9 10^3/uL (1.5-5.0); LYMPH % 27.6 % (24.0-44.0); MEAN CORPUSCULAR HEMOGLOBIN 30.6 pg (27.0-33.0); MEAN CORPUSCULAR HGB CONC 32.6 g/dl (32.0-36.5); MEAN CORPUSCULAR VOLUME 94.1 fl (80.0-96.0); MONO # 0.8 10^3/uL (0.0-0.8); MONO % 10.9 % (2.0-8.0); NEUTROPHILS # 4.1 10^3/uL (1.5-8.5); NEUTROPHILS % 60.3 % (36.0-66.0); PLATELET COUNT, AUTOMATED 267 10^3/uL (150-450); RED BLOOD COUNT 4.21 10^6/uL (4.00-5.40); WHITE BLOOD COUNT 6.9 10^3/uL (4.0-10.0)
--- NOTE | 2020-06-21 17:59 | REP ---
INDICATION: CVA. COMPARISON: PA and lateral chest dated 02/09/[address] dated 01/19/2019. TECHNIQUE: Portable AP chest with the patient sitting. FINDINGS: The lung khoury are clear. Cardiac size is normal. The laverne, mediastinum and skeletal structures are unremarkable except for a right pericardial cyst, unchanged from the comparison studies.. IMPRESSION: Right pericardial cyst, otherwise, essentially negative PA and lateral chest <Electronically signed by Abhi Virk > 06/21/20 [id number]
--- NOTE | 2020-06-21 17:59 | REPVR ---
PROCEDURE INFORMATION: Exam: CT Head Without Contrast Exam date and time: 06/21/2020 5:30 PM Age: 75 years old Clinical indication: Other: CVA; Additional info: CVA - nursing interventions must not delay CT TECHNIQUE: Imaging protocol: Computed tomography of the head without contrast. Radiation optimization: All CT scans at this facility use at least one of these dose optimization techniques: automated exposure control; mA and/or kV adjustment per patient size (includes targeted exams where dose is matched to clinical indication); or iterative reconstruction. Other technique: STROKE PROTOCOL was implemented. COMPARISON: CT Head without contrast 08/24/2017 3:36 PM FINDINGS: Brain: Moderate hypoattenuating foci are noted in the posterior superior periatrial and anterior lateral ventricular periventricular white matter bilaterally. No intracranial hemorrhage. No acute cortical infarction identified. Cerebral ventricles: Prominence of the ventricular system and subarachnoid spaces is consistent with the patient's age of 75 years. Bones/joints: No acute abnormality. No acute fracture. Paranasal sinuses: Interval partial opacification of the frontal sinus Mastoid air cells: Visualized mastoid air cells are well aerated. Vasculature: Atherosclerotic calcifications are present involving the carotid artery siphons bilaterally. Soft tissues: Unremarkable. Other findings: 14.5 mm extra-axial right vertex mildly hyperattenuating lesion redemonstrated. IMPRESSION: 1. Age appropriate supratentorial and infratentorial atrophy. 2. Moderate chronic white matter microvascular ischemic disease. 3. No acute intracranial abnormality identified. 4. Extra-axial right vertex probable meningioma, stable. 5. Incidental paranasal sinus disease as above. ASSESSMENT: ASPECTS ([place] Stroke Program Early CT Score) is 10. Electronically signed by: Arvin Correa On 06/21/2020 18:00:09 PM
[2020-06-21 18:06] LABS: INR 1.01; PARTIAL THROMBOPLASTIN TIME 31.3 SECONDS (24.2-38.5); PROTHROMBIN TIME 13.5 SECONDS (12.5-14.3)
[2020-06-21 18:16] LABS: BLOOD UREA NITROGEN 15 MG/DL (7-18); CALCIUM LEVEL 9.4 MG/DL (8.8-10.2); CARBON DIOXIDE LEVEL 28 MEQ/L (21-32); CHLORIDE LEVEL 106 MEQ/L (98-107); CK-MB VALUE MASS 1.6 NG/ML (<3.6); CPK CREATINE PHOSPHOKINASE 95 U/L (26-192); CREATININE FOR GFR 0.71 MG/DL (0.55-1.30); GLOMERULAR FILTRATION RATE > 60.0 (>39); GLUCOSE, FASTING 90 MG/DL (70-100); MB/CK RELATIVE INDEX 1.68 (< OR =4); POTASSIUM SERUM 3.7 MEQ/L (3.5-5.1); SODIUM LEVEL 140 MEQ/L (136-145); TROPONIN I < 0.02 NG/ML (< 0.10)
--- NOTE | 2020-06-21 22:42 | REPVR ---
PROCEDURE INFORMATION: Exam: MR Head Without Contrast Exam date and time: 06/21/2020 9:54 PM Age: 75 years old Clinical indication: Walking, difficulty and other: Vertigo unsteady ? cerebellar infarct TECHNIQUE: Imaging protocol: MR of the head without contrast. COMPARISON: 1. CT Head without contrast 2020-06-21 17:37 2. MRI-Brain without Contrast 2017-08-24 19:08 FINDINGS: Brain: Mild chronic FLAIR signal hyperintensity within the periventricular white matter. No midline shift, mass, fluid collection, or evidence of acute hemorrhage. No brain parenchymal diffusion restriction to suggest acute ischemia or infarction. Cerebral ventricles: Moderate ventricular enlargement. Bones/joints: Unremarkable. Paranasal sinuses: Normal as visualized. No acute sinusitis. Mastoid air cells: Trace mastoid effusions. Orbital cavity: Unremarkable. Soft tissues: Unremarkable. IMPRESSION: No acute findings. Electronically signed by: Tomás Leblanc On 06/21/2020 22:43:06 PM
--- NOTE | 2020-06-21 22:44 | REPVR ---
PROCEDURE INFORMATION: Exam: MRA Head Without Contrast; Arteriography Exam date and time: 06/21/2020 9:54 PM Age: 75 years old Clinical indication: Dizziness and giddiness and weakness; Additional info: Vertigo unsteady ? cerebellar infarct TECHNIQUE: Imaging protocol: Magnetic resonance angiography head without contrast. Exam focused on the arteries. COMPARISON: 1. MRA BRAIN W/O CONTRAST 2017-08-24 18:58 2. MRA BRAIN W/O CONTRAST 2017-01-09 15:03 FINDINGS: ANTERIOR CIRCULATION: Right internal carotid artery: Intracranial segment is patent with no significant stenosis. No aneurysm. Right middle cerebral artery: No occlusion or significant stenosis. No aneurysm. Right anterior cerebral artery: No occlusion or significant stenosis. No aneurysm. Left internal carotid artery: Intracranial segment is patent with no significant stenosis. No aneurysm. Left middle cerebral artery: No occlusion or significant stenosis. No aneurysm. Left anterior cerebral artery: No occlusion or significant stenosis. No aneurysm. POSTERIOR CIRCULATION: Right vertebral artery: No occlusion or significant stenosis. No aneurysm. Left vertebral artery: No occlusion or significant stenosis. No aneurysm. Basilar artery: No occlusion or significant stenosis. No aneurysm. Right posterior cerebral artery: No occlusion or significant stenosis. No aneurysm. Left posterior cerebral artery: No occlusion or significant stenosis. No aneurysm. IMPRESSION: No stenosis or occlusion. Electronically signed by: Tomás Leblanc On 06/21/2020 22:45:29 PM
[2020-06-21 23:54] VITALS: BP 156/71
--- NOTE | 2020-06-22 08:38 | ECGEPIP ---
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
--- NOTE | 2020-06-23 07:23 | ED PDOC ---
Post-Departure Follow-Up radiology report faxed to Renu Torres MD Jun 23, 2020 07:23
== END 2020-06-22 00:17 | disposition home or self-care (01) ==
LOC: M ED 16:51
DX: R42 Dizziness and giddiness (principal); E07.9 Disorder of thyroid, unspecified; K21.9 Gastro-esophageal reflux disease without esophagitis; G31.01 Pick's disease; G50.0 Trigeminal neuralgia; R90.82 White matter disease, unspecified; J34.89 Other specified disorders of nose and nasal sinuses; I31.8 Other specified diseases of pericardium; Z79.82 Long term (current) use of aspirin; Z79.899 Other long term (current) drug therapy

== ENCOUNTER 2020-08-31 12:27 | Emergency (ER) | payer MEDICARE, BC, OTHER ==
[~2020-08-31] VITALS: Ht 154.9 cm; Wt 61.4 kg
[~2020-08-31 12:27] MED LIST changes: +OMEP40CA4 PO; -OMEP40CA97 PO
--- NOTE | 2020-08-31 13:31 | REPVR ---
PROCEDURE INFORMATION: Exam: CT Head Without Contrast Exam date and time: 08/31/2020 1:10 PM Age: 75 years old Clinical indication: Altered mental status/memory loss TECHNIQUE: Imaging protocol: Computed tomography of the head without contrast. Radiation optimization: All CT scans at this facility use at least one of these dose optimization techniques: automated exposure control; mA and/or kV adjustment per patient size (includes targeted exams where dose is matched to clinical indication); or iterative reconstruction. COMPARISON: MRI-Brain without Contrast 06/21/2020 9:55 PM FINDINGS: Brain: There is a stable 1.5 cm meningioma along the right vertex. There is no acute intracranial hemorrhage or mass effect. Moderate diffuse volume loss is within the range of normal for patient age. There are small vessel ischemic changes within the periventricular and subcortical white matter, but the normal sim-white matter delineation is maintained. Cerebral ventricles: Prominence of the ventricular system is commensurate with volume loss. Paranasal sinuses: There is focal frontal sinus mucosal thickening. Mastoid air cells: Visualized mastoid air cells are well aerated. Bones/joints: Unremarkable. No acute fracture. Soft tissues: Unremarkable. IMPRESSION: No acute hemorrhage or edema. Electronically signed by: Lor Zimmerman On 08/31/2020 13:31:34 PM
[2020-08-31 14:18] LABS: BASO % 0.5 % (0.0-1.0); EOS % 0.4 % (0.0-3.0); HEMATOCRIT 40.5 % (36.0-47.0); LYMPH # 1.6 10^3/uL (1.5-5.0); LYMPH % 20.8 % (24.0-44.0); MEAN CORPUSCULAR HEMOGLOBIN 30.4 pg (27.0-33.0); MEAN CORPUSCULAR HGB CONC 32.1 g/dl (32.0-36.5); MEAN CORPUSCULAR VOLUME 94.6 fl (80.0-96.0); MONO # 0.9 10^3/uL (0.0-0.8); MONO % 12.1 % (2.0-8.0); NEUTROPHILS % 65.8 % (36.0-66.0); PLATELET COUNT, AUTOMATED 278 10^3/uL (150-450); RED BLOOD COUNT 4.28 10^6/uL (4.00-5.40); WHITE BLOOD COUNT 7.6 10^3/uL (4.0-10.0)
[2020-08-31 14:47] LABS: ALBUMIN 3.4 GM/DL (3.2-5.2); ALT/SGPT 22 U/L (12-78); BILIRUBIN,DIRECT < 0.1 MG/DL (0.0-0.2); BILIRUBIN,TOTAL 0.3 MG/DL (0.2-1.0); BLOOD UREA NITROGEN 13 MG/DL (7-18); CALCIUM LEVEL 8.8 MG/DL (8.8-10.2); CARBON DIOXIDE LEVEL 31 MEQ/L (21-32); CHLORIDE LEVEL 108 MEQ/L (98-107); CK-MB VALUE MASS 1.9 NG/ML (<3.6); CPK CREATINE PHOSPHOKINASE 146 U/L (26-192); GLOMERULAR FILTRATION RATE > 60.0 (>39); GLUCOSE, FASTING 81 MG/DL (70-100); POTASSIUM SERUM 4.4 MEQ/L (3.5-5.1); SODIUM LEVEL 141 MEQ/L (136-145); THYROID STIMULATING HORMONE 0.661 uIU/ML (0.358-3.740); TOTAL PROTEIN 6.8 GM/DL (6.4-8.2); TROPONIN I < 0.02 NG/ML (< 0.10)
[2020-08-31 16:57] VITALS: BP 128/63
--- NOTE | 2020-09-01 06:55 | ECGEPIP ---
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
== END 2020-08-31 17:08 | disposition home or self-care (01) ==
LOC: EDBD 12:27 → M ED 12:27
DX: R41.82 Altered mental status, unspecified (principal); G50.0 Trigeminal neuralgia; Z79.82 Long term (current) use of aspirin; Z79.890 Hormone replacement therapy; Z79.899 Other long term (current) drug therapy; Z86.69 Personal history of other diseases of the nervous system and sense organs; Z98.890 Other specified postprocedural states; Z86.73 Personal history of transient ischemic attack (TIA), and cerebral infarction without residual deficits

== ENCOUNTER → 2020-10-26 | Outpatient (REF) | payer MEDICARE, OTHER, BC ==
[2020-10-26 18:37] LABS: PERCENT SATURATION 20.8 % (13.2-45.0)
== END ==
LOC: M LAB REF 16:55
PROVIDERS: ATTEND Internal Medicine
DX: K30 Functional dyspepsia (principal)

== ENCOUNTER 2020-11-20 09:14 | Emergency (ER) | payer MEDICARE, OTHER, BC ==
[~2020-11-20] VITALS: Ht 157.5 cm; Wt 53.6 kg
[2020-11-20] MEDS ORDERED: OMEP-218 (09:44)
[2020-11-20] MEDS ORDERED: SERT50TA29 (09:44)
[2020-11-20 12:06] LABS: BASO % 0.4 % (0.0-1.0); HEMATOCRIT 42.1 % (36.0-47.0); HEMOGLOBIN 13.7 g/dl (12.0-15.5); LYMPH # 1.6 10^3/uL (1.5-5.0); LYMPH % 15.5 % (24.0-44.0); MEAN CORPUSCULAR HEMOGLOBIN 30.5 pg (27.0-33.0); MEAN CORPUSCULAR HGB CONC 32.5 g/dl (32.0-36.5); MEAN CORPUSCULAR VOLUME 93.8 fl (80.0-96.0); MONO % 9.9 % (2.0-8.0); NEUTROPHILS # 7.5 10^3/uL (1.5-8.5); NEUTROPHILS % 73.7 % (36.0-66.0); PLATELET COUNT, AUTOMATED 291 10^3/uL (150-450); RED BLOOD COUNT 4.49 10^6/uL (4.00-5.40); WHITE BLOOD COUNT 10.1 10^3/uL (4.0-10.0)
[2020-11-20] MEDS ORDERED: GI COCKTAIL 50ML BTL(HYOSCYAMINE/MAALOX/LIDOCAINE VISCOUS)(1:3:1) PO ONE (12:15)
[2020-11-20 12:57] LABS: ALBUMIN 3.6 GM/DL (3.2-5.2); ALT/SGPT 26 U/L (12-78); BILIRUBIN,DIRECT 0.1 MG/DL (0.0-0.2); BILIRUBIN,TOTAL 0.3 MG/DL (0.2-1.0); BLOOD UREA NITROGEN 12 MG/DL (7-18); CALCIUM LEVEL 9.2 MG/DL (8.8-10.2); CARBON DIOXIDE LEVEL 29 MEQ/L (21-32); CHLORIDE LEVEL 105 MEQ/L (98-107); CREATININE FOR GFR 0.67 MG/DL (0.55-1.30); GLOMERULAR FILTRATION RATE > 60.0 (>39); GLUCOSE, FASTING 99 MG/DL (70-100); LIPASE 81 U/L (73-393); POTASSIUM SERUM 3.5 MEQ/L (3.5-5.1); SODIUM LEVEL 141 MEQ/L (136-145); TOTAL PROTEIN 6.9 GM/DL (6.4-8.2)
--- NOTE | 2020-11-20 13:10 | REP ---
INDICATION: abd pain COMPARISON: Comparison CT study abdomen and pelvis January 19, 2019. TECHNIQUE: Helical scanning is acquired and 3 mm axial images were reformatted. Coronal and sagittal MPR images were generated and reviewed. 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 Axial images show mild linear fibrosis in the right middle lobe. The lung bases are otherwise clear. There is a right cardiophrenic angle pericardial cyst again noted unchanged from the comparison study from January 19, 2019. This measures 7.1 cm in greatest anteroposterior dimension. There are multiple stable hepatic cysts also again noted. These are also unchanged. No focal splenic lesion is seen. Normal adrenal glands are seen. No abnormality is noted within the pancreas or the gallbladder. There is scattered right and left colonic diverticulosis without CT evidence of diverticulitis. No uterine or urinary bladder abnormality is seen. There are and rounded calcifications in the left adnexa consistent with phleboliths. No ovarian mass or significant cyst is observed. A normal appendix is seen in the right lower quadrant. These findings are unchanged from pelvic CT images January of 2019. The kidneys are morphologically intact. No hydronephrosis or ureteral stone. IMPRESSION: No urinary tract calculus or hydronephrosis seen. Normal appendix. Scattered pancolonic diverticulosis. Stable hepatic cysts. Stable right-sided pericardial cyst at the cardio phrenic angle. <Electronically signed by Max Chahal > 11/20/20 [id number]
[2020-11-20] MEDS ORDERED: DICY20TA11 PO (13:40)
[2020-11-20 13:53] VITALS: BP 155/72
== END 2020-11-20 14:01 | disposition home or self-care (01) ==
LOC: M ED 09:14
DX: K29.70 Gastritis, unspecified, without bleeding (principal); R10.9 Unspecified abdominal pain; Z86.73 Personal history of transient ischemic attack (TIA), and cerebral infarction without residual deficits; K57.30 Diverticulosis of large intestine without perforation or abscess without bleeding; K76.89 Other specified diseases of liver; I31.8 Other specified diseases of pericardium; Z79.82 Long term (current) use of aspirin; Z79.899 Other long term (current) drug therapy

== ENCOUNTER 2020-12-22 11:10 | Observation (INO) | payer MEDICARE, OTHER, BC ==
[~2020-12-22] VITALS: Ht 160 cm; Wt 55.5 kg
[~2020-12-22 11:10] MED LIST changes: +DICY20TA11 PO; +OMEP-218; +SERT50TA29 PO
[2020-12-22] MEDS ORDERED: PANT40TA29 PO (11:23)
[2020-12-22] MEDS ORDERED: ISOVUE-370 76% 100ML VIAL As Ordered ONE (11:29)
--- NOTE | 2020-12-22 11:45 | REP ---
INDICATION: CVA COMPARISON: 06/21/2020 TECHNIQUE: Portable AP view of the chest FINDINGS: The mediastinum and cardiac silhouette are stable and within normal limits for portable technique. The lung khoury are clear without acute consolidation, effusion, or pneumothorax. Skeletal structures demonstrate degenerative changes primarily involving the left shoulder and thoracic spine.. IMPRESSION: No acute cardiopulmonary process appreciated. <Electronically signed by Richard Calzada > 12/22/20 [id number]
--- NOTE | 2020-12-22 12:07 | REP ---
INDICATION: CVA - Nursing interventions must not delay CT COMPARISON: 08/31/2020 TECHNIQUE: Axial noncontrast images from the skull base to the thoracic inlet with coronal reformations. This CT examination was performed using the following dose reduction techniques: Automated exposure control, adjustment of mA and/or kv according to the patient's size, and use of iterative reconstruction technique. FINDINGS: Age-related atrophy with periventricular leukomalacia and microvascular ischemic changes are again appreciated. Stable 1.8 cm meningioma identified at the right vertex adjacent to the falx. The ventricles and sulci are symmetric. Manrique-white differentiation is maintained. There is no evidence for acute intracranial hemorrhage, mass/mass effect, pathology or infarction. No extra-axial fluid collection. Calvarium is intact. Paranasal sinuses and mastoid air cells are clear. IMPRESSION: Atrophy and microvascular ischemic changes. Stable meningioma. No acute intracranial hemorrhage, infarction, or mass/mass effect. <Electronically signed by Richard Calzada > 12/22/20 [id number]
--- NOTE | 2020-12-22 12:09 | REP ---
INDICATION: CVA - Nursing interventions must not delay CT. COMPARISON: None. TECHNIQUE: CT contrast dose: 100 ml of intravenous Isovue 370. Axial contrast-enhanced images were obtained from the skull base to the vertex with coronal reformations using 100 cc Isovue 370 intravenous contrast material. Maximal intensity projection and multiplanar re-formation images along with 3-D rendered imaging of the arterial vasculature. FINDINGS: The [id number] and visualized vertebrobasilar system appear intact and normal. Vasculature to the bilateral hemispheres appear symmetric. No obvious arteriovenous malformation or aneurysm detected. Remainder of the examination appears essentially normal. IMPRESSION: Normal CT angiography of the head. No obvious arteriovenous malformation or aneurysm. Vasculature to the bilateral hemispheres and posterior fossa appear symmetric. <Electronically signed by Richard Calzada > 12/22/20 [id number]
--- NOTE | 2020-12-22 12:11 | REP ---
INDICATION: CVA - Nursing interventions must not delay CT. COMPARISON: None. TECHNIQUE: Axial contrast-enhanced images were obtained from the thoracic inlet to the skull base with coronal and sagittal reformations using 100 cc Isovue 370 intravenous contrast material. Maximal intensity projection and multiplanar re-formation images along with 3-D rendered imaging of the arterial vasculature. This CT examination was performed using the following dose reduction techniques: Automated exposure control, adjustment of mA and/or kv according to the patient's size, and the use of iterative reconstruction technique. FINDINGS: The common carotid arteries, carotid bulbs and visualized portions of the external and the internal carotid arteries are normal. The vertebral arteries are patent and symmetric. There are no atherosclerotic lesions, areas of significant stenosis or occlusion identified. No obvious vascular abnormality noted.. IMPRESSION: Normal CT angiography of the neck <Electronically signed by Richard Calzada > 12/22/20 [id number]
[2020-12-22 12:14] LABS: BASO # 0.1 10^3/uL (0.0-0.2); BASO % 0.5 % (0.0-1.0); EOS % 0.2 % (0.0-3.0); HEMATOCRIT 42.6 % (36.0-47.0); HEMOGLOBIN 13.9 g/dl (12.0-15.5); LYMPH # 1.3 10^3/uL (1.5-5.0); LYMPH % 12.3 % (24.0-44.0); MEAN CORPUSCULAR HGB CONC 32.6 g/dl (32.0-36.5); MEAN CORPUSCULAR VOLUME 95.1 fl (80.0-96.0); MONO # 1.2 10^3/uL (0.0-0.8); MONO % 10.7 % (2.0-8.0); NEUTROPHILS # 8.2 10^3/uL (1.5-8.5); NEUTROPHILS % 75.6 % (36.0-66.0); PLATELET COUNT, AUTOMATED 355 10^3/uL (150-450); RED BLOOD COUNT 4.48 10^6/uL (4.00-5.40); WHITE BLOOD COUNT 10.9 10^3/uL (4.0-10.0)
[2020-12-22 12:26] LABS: INR 1.03; PROTHROMBIN TIME 13.9 SECONDS (12.7-14.5)
[2020-12-22 12:36] LABS: CK-MB VALUE MASS 1.9 NG/ML (<3.6); CPK CREATINE PHOSPHOKINASE 67 U/L (26-192); MB/CK RELATIVE INDEX 2.84 (< OR =4); TROPONIN I < 0.02 NG/ML (< 0.10)
[2020-12-22] MEDS ORDERED: ASPI81TA26 PO (13:19)
[2020-12-22] MEDS ORDERED: SYNT75TA PO (13:19)
[2020-12-22] MEDS ORDERED: HOME MED LIST COMPLETE! XX SCH (13:20)
[2020-12-22 14:24] LABS: RSV AMPLIFICATION NEGATIVE (NEGATIVE)
--- NOTE | 2020-12-22 16:06 | HPEPDOC ---
General Date of Admission Dec 22, 2020 at 13:26 Date of Service: Dec 22, 2020 Chief Complaint The patient is a 75-year-old female admitted with a reason for visit of Aphasia, Dementia. Source: Family, RN/, Old records History of Present Illness 75-year-old female with dementia, progressive aphasia, chronic left-sided facial paresthesias, hypothyroid, GERD was brought into the emergency room because of abnormal behavior noted at around 9 AM this morning by . Last seen normal at about 7:30 AM this morning. Around 8 AM has been found her sitting in her chair staring fixedly in front she could not get any words out. When tried to go out and get help from another family member she grabbed him and would not let him go. She was very fearful and was very agitated when he tried to leave the room. So called EMS and patient was brought to the emergency room. At baseline she is ambulatory and able to have a conversation as per . She feeds herself and dresses herself. On my exam patient appeared to be very fearful she was speaking some words I could understand some words were chest mumbled. Most of her speech was unrelated or in complete sentences which I could not understand however has been seem to be able to get her meaning. When I tried to examine her she was trying to curl up in position cross cover her face with blanket. When has been moved to one side of the room and was out of the patient's eye eyesight she became very agitated. She was able to get out of bed by herself and ambulate to the bathroom with her . She knew her name however did not know where she was in the date. She did answer yes or no to few questions however her history is not at all reliable. All information was taken from and from chart review and ED physician. This looks like a progressive dementia. However need to rule out TIA so the patient is being admitted. Home Medications Scheduled Aspirin (Aspirin EC) 81 Mg Tablet.dr, 81 MG PO DAILY, (Reported) Levothyroxine Sodium (Synthroid) 75 Mcg Tablet, 75 MCG PO QPM, (Reported) Pantoprazole Sodium (Pantoprazole Sodium) 40 Mg Tablet.dr, 40 MG PO DAILY, (Reported) Sertraline HCl (Sertraline HCl) 50 Mg Tablet, 50 MG PO QPM, (Reported) Timolol Maleate (Timoptic) 0.5 % Sandy, 1 DROP OU QHS, (Reported) Allergies Coded Allergies: No Known Allergies (Unverified , 01/19/19) Past Medical History Medical History Hypothyroid Meningioma 13 mm at the right vertex Dementia Progressive Aphasia. Small vessel ischemic disease of brain GERD/hiatal hernia Glaucoma Chronic left sided facial paresthesias BPPV Vertigo Diverticulosis Stable right-sided pericardial cyst Surgical History Tonsillectomy Family History Significant Family History: No pertinent family hx Discussed with the patient's Social History * Smoker: Denies Alcohol: rarely Drugs: denies A-FIB/CHADSVASC A-FIB History Current/History of A-Fib/PAF?: No Review of Systems Constitutional: Reports: Other (Abnormal behavior); Denies: Chills, Fever, Night Sweats Eyes: Denies: Pain, Vision change ENT: Denies: Head Aches, Ear Pain, Dysphagia Pulmonary: Denies: Dyspnea, Cough Cardiovascular: Denies: Chest Pain, Palpitations, Orthopnea, Paroxysmal Noc. Dyspnea, Lt Headedness Gastrointestinal: Denies: Nausea, Vomiting, Abdominal Pain, Diarrhea Genitourinary: Denies: Dysuria, Frequency, Incontinence, Retention Hematologic: Denies: Bruising, Bleeding Excessively Musculoskeletal: Denies: Neck Pain, Back Pain, Joint Pain, Muscle Pain, Spasms Neurological: Reports: Change in speech, Confusion Psych: Reports: Anxiety, Memory Issues Physical Examination General Exam: Positive: Alert, No Acute Distress, Other (Confused and fearful. Tries to turn away from me when doing a physical and tries to cover her face.) Eye Exam: Positive: Conjunctiva & lids normal, EOMI ENT Exam: Positive: Atraumatic, Mucous membr. moist/pink, Pharynx Normal Neck Exam: Positive: Supple; Negative: JVD, thyromegaly Chest Exam: Positive: Clear to auscultation, Normal air movement Heart Exam: Positive: Rate Normal, Regular Rhythm, Normal S1, Normal S2; Negative: Murmurs, Rubs Telemetry: Positive: No significant arrhythmia Abdomen Exam: Positive: Normal bowel sounds, Soft; Negative: Tenderness, Hepatospenomegaly Extremity Exam: Negative: Clubbing, Cyanosis, Edema Neuro Exam: Positive: Normal Gait, Strength at 5/5 X4 ext, Normal Tone Psych Exam: Positive: Anxiety, Other (Oriented only to person) Vital Signs Vital Signs Date Time Temp Pulse Resp B/P (MAP) Pulse Ox O2 Delivery O2 Flow Rate FiO2 12/22/20 13:00 137/66 (89) 12/22/20 12:55 78 99 12/22/20 11:12 97.1 18 Room Air Laboratory Data Labs 24H Laboratory Tests 2 12/22/20 11:20: Immature Granulocyte % (Auto) 0.7, Neutrophils (%) (Auto) 75.6H, Lymphocytes (%) (Auto) 12.3L, Monocytes (%) (Auto) 10.7H, Eosinophils (%) (Auto) 0.2, Basophils (%) (Auto) 0.5, Neutrophils # (Auto) 8.2, Lymphocytes # (Auto) 1.3L, Monocytes # (Auto) 1.2H, Eosinophils # (Auto) 0.0, Basophils # (Auto) 0.1, Nucleated Red Blood Cells % (auto) 0.0, Prothrombin Time 13.9, Prothromb Time International Ratio 1.03, Activated Partial Thromboplast Time 32.0, Total Creatine Kinase 67, Creatine Kinase MB 1.9, Creatine Kinase MB Relative Index 2.84, Troponin I < 0.02 12/22/20 11:30: POC Glucose (Misc Panel) 81, POC Sodium (Misc Panel) 139, POC Potassium (Misc Panel) 3.9, POC Chloride (Misc Panel) 99, POC Total CO2 (Misc Panel) 29.0H, POC Blood Urea Nitrogen (Misc Panel 13, POC Ionized Calcium (Misc Panel) 4.9, POC Creatinine (Misc Panel) 0.8, POC Hematocrit (Misc Panel) 42.0 12/22/20 13:27: Coronavirus (COVID-19)(PCR) NEGATIVE, Influenza Type A (RT-PCR) NEGATIVE, Influenza Type B (RT-PCR) NEGATIVE, Respiratory Syncytial Virus (PCR) NEGATIVE 12/22/20 14:07: Bedside Glucose (Misc Panel) 110 CBC/BMP Laboratory Tests 12/22/20 11:20 Assessment/Plan 75-year-old female with dementia, progressive aphasia, chronic left-sided facial paresthesias, hypothyroid, GERD was brought into the emergency room because of abnormal behavior noted at around 9 AM this morning by . Last seen normal at about 7:30 AM this morning. Around 8 AM has been found her sitting in her chair staring fixedly in front she could not get any words out. When tried to go out and get help from another family member she grabbed him and would not let him go. She was very fearful and was very agitated when he tried to leave the room. So called EMS and patient was brought to the emergency room. At baseline she is ambulatory and able to have a conversation as per . She feeds herself and dresses herself. On my exam patient appeared to be very fearful she was speaking some words I could understand some words were chest mumbled. Most of her speech was unrelated or in complete sentences which I could not understand however has been seem to be able to get her meaning. When I tried to examine her she was trying to curl up in position cross cover her face with blanket. When has been moved to one side of the room and was out of the patient's eye eyesight she became very agitated. She was able to get out of bed by herself and ambulate to the bathroom with her . She knew her name however did not know where she was in the date. She did answer yes or no to few questions however her history is not at all reliable. All information was taken from and from chart review and ED physician. This looks like a progressive dementia. However need to rule out TIA so the patient is being admitted. Rule out TIA CT head chronic microvascular ischemic disease, CT angio of the neck is negative for any acute stenosis, CT angio of the head is also negative. We will get MRI of brain. Monitor under telemetry Dementia likely with progression Not on any meds Progressive aphasia Follows with Dr. Atkins Hypothyroidism. Continue home dose of levothyroxine. GERD. Continue PPI. History of vertigo/BPPV No complaints at this time Plan / VTE VTE Prophylaxis Ordered?: Yes Maxine Monge MD Dec 22, 2020 16:06
--- NOTE | 2020-12-22 19:36 | ECGEPIP ---
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
[2020-12-22] MEDS ORDERED: TIMOLOL MALEATE 0.5% OPHTH SOLN 5 ML OU SCH (21:00)
[2020-12-22] MEDS ORDERED: SERTRALINE HCL 50 MG TAB PO SCH (21:00)
[2020-12-22] MEDS ORDERED: LEVOTHYROXINE 75MCG TABLET (0.075MG) PO SCH (21:00)
[2020-12-23] MEDS ORDERED: OLANZapine 2.5MG TABLET PO PRN (01:20)
[2020-12-23 02:30] VITALS: BP 158/69
[2020-12-23] MEDS ORDERED: LORazepam 2 MG/ML VIAL IM STA (03:14)
[2020-12-23 06:00] VITALS: BP 147/72
--- NOTE | 2020-12-23 08:13 | REPVR ---
PROCEDURE INFORMATION: Exam: MR Head Without Contrast Exam date and time: 12/23/2020 5:50 AM Age: 75 years old Clinical indication: Other: Dementia/aphasia TECHNIQUE: Imaging protocol: MR of the head without contrast. COMPARISON: CT Head without contrast 12/22/2020 11:30 AM FINDINGS: Limitations: There is motion artifact partially degrading examination. Brain: The ventricles and sulci are proportionally enlarged, consistent with age related volume loss / atrophy. There is T2 prolongation in the cerebral white matter, consistent with microvascular disease. Manrique white differentiation is intact. Diffusion weighted images show no restricted diffusion or evidence of acute infarct. Again seen is right paramedian vertex 1.5 cm meningioma as visualized. There is no evidence of edema in adjacent brain. There is no mass effect or midline shift. There is no acute intracranial hemorrhage. There are no extra-axial fluid collections. Cerebral ventricles: Normal. No ventriculomegaly. Bones/joints: Benign hyperostosis frontalis is present. Paranasal sinuses: There is focal mucosal thickening in sphenoid sinuses as before. Mastoid air cells: No significant mastoid effusion. Orbital cavity: There have been bilateral intraocular lens replacements likely related to cataract surgery. Soft tissues: Unremarkable as visualized. Other vasculature: Flow voids in main vascular structures are visualized. IMPRESSION: 1. No evidence of acute intracranial abnormality. No evidence of acute infarction or hemorrhage. 2. Atrophy and microvascular disease. 3. Stable right convexity meningioma. Electronically signed by: Ashtyn Miramontes On 12/23/2020 08:13:04 AM
[2020-12-23] MEDS ORDERED: PANTOPRAZOLE 40MG TAB (PROTONIX) PO SCH (09:00)
[2020-12-23] MEDS ORDERED: ASPIRIN 81MG ENTERIC TABLET PO SCH (09:00)
[2020-12-23] MEDS ORDERED: ENOXAPARIN 40MG/0.4ML SYRINGE (J1650 PER 10MG) SC SCH (09:00)
[2020-12-23] MEDS ORDERED: SERO1TAB3 PO (09:36)
[2020-12-23] MEDS ORDERED: FLUBLOK(EGG FREE)(QUAD)INFLUENZA VACC 0.5ML SYRINGE 18YRS & OLDER IM ONE (10:00)
--- NOTE | 2020-12-24 12:07 | DS.PDOC ---
Discharge Summary General Date of Admission Dec 22, 2020 at 13:26 Date of Discharge 12/23/20 Discharge Summary PROCEDURES PERFORMED DURING STAY: [None]. DISCHARGE DIAGNOSES: Progression of dementia Progressive aphasia Secondary diagnosis: Hypothyroid Meningioma 13 mm at the right vertex Dementia Progressive Aphasia. Small vessel ischemic disease of brain GERD/hiatal hernia Glaucoma Chronic left sided facial paresthesias BPPV Vertigo Diverticulosis Stable right-sided pericardial cyst COMPLICATIONS/CHIEF COMPLAINT: Aphasia, Dementia. HOSPITAL COURSE:75-year-old female with dementia, progressive aphasia, chronic left-sided facial paresthesias, hypothyroid, GERD was brought into the emergency room because of abnormal behavior noted at around 9 AM this morning by . Last seen normal at about 7:30 AM this morning. Around 8 AM has been found her sitting in her chair staring fixedly in front she could not get any words out. When tried to go out and get help from another family member she grabbed him and would not let him go. She was very fearful and was very agitated when he tried to leave the room. So called EMS and patient was brought to the emergency room. At baseline she is ambulatory and able to have a conversation as per . She feeds herself and dresses herself. On my exam patient appeared to be very fearful she was speaking some words I could understand some words were chest mumbled. Most of her speech was unrelated or in complete sentences which I could not understand however has been seem to be able to get her meaning. When I tried to examine her she was trying to curl up in position cross cover her face with blanket. When has been moved to one side of the room and was out of the patient's eye eyesight she became very agitated. She was able to get out of bed by herself and ambulate to the bathroom with her . She knew her name however did not know where she was in the date. She did answer yes or no to few questions however her history is not at all reliable. All information was taken from and from chart review and ED physician. This looks like a progressive dementia. However need to rule out TIA so the patient is being admitted. Stroke/TIA ruled out CT head chronic microvascular ischemic disease, CT angio of the neck is negative for any acute stenosis, CT angio of the head is also negative. MRI brain negative for any acute events Dementia likely with progression We will start on Seroquel twice daily as needed for behavioral issues Progressive aphasia Follows with Dr. Atkins Hypothyroidism. Continue home dose of levothyroxine. GERD. Continue PPI. History of vertigo/BPPV No complaints at this time DISCHARGE MEDICATIONS: Please see below. ALLERGIES: Please see below. PHYSICAL EXAMINATION ON DISCHARGE: VITAL SIGNS: Please see below. General Exam: Positive: Alert, No Acute Distress, Other (Confused and fearful. Tries to turn away from me when doing a physical and tries to cover her face.) Eye Exam: Positive: Conjunctiva & lids normal, EOMI ENT Exam: Positive: Atraumatic, Mucous membr. moist/pink, Pharynx Normal Neck Exam: Positive: Supple; Negative: JVD, thyromegaly Chest Exam: Positive: Clear to auscultation, Normal air movement Heart Exam: Positive: Rate Normal, Regular Rhythm, Normal S1, Normal S2; Negative: Murmurs, Rubs Telemetry: Positive: No significant arrhythmia Abdomen Exam: Positive: Normal bowel sounds, Soft; Negative: Tenderness, Hepatosplenomegaly Extremity Exam: Negative: Clubbing, Cyanosis, Edema Neuro Exam: Positive: Normal Gait, Strength at 5/5 X4 ext, Normal Tone Psych Exam: Positive: Anxiety, Other (Oriented only to person) LABORATORY DATA: Please see below. ACTIVITY: [As tolerated]. DIET: As tolerated DISPOSITION: 01 Home, Self-Care. DISCHARGE INSTRUCTIONS: Follow with PMD in 1 week Follow-up with Dr. Atkins in 2 weeks DISCHARGE CONDITION: [Stable]. TIME SPENT ON DISCHARGE: 35 minutes. Vital Signs/I&Os Vital Signs Date Time Temp Pulse Resp B/P (MAP) Pulse Ox O2 Delivery O2 Flow Rate FiO2 12/23/20 06:00 98.1 73 18 147/72 (97) 100 Room Air I&O- Last 24 Hours up to 6 AM 12/24/20 05:59 Intake Total 0 ml Balance 0 ml Discharge Medications Scheduled Aspirin (Aspirin EC) 81 Mg Tablet.dr, 81 MG PO DAILY, (Reported) Levothyroxine Sodium (Synthroid) 75 Mcg Tablet, 75 MCG PO QPM, (Reported) Pantoprazole Sodium (Pantoprazole Sodium) 40 Mg Tablet.dr, 40 MG PO DAILY, (Reported) Sertraline HCl (Sertraline HCl) 50 Mg Tablet, 50 MG PO QPM, (Reported) Timolol Maleate (Timoptic) 0.5 % Sandy, 1 DROP OU QHS, (Reported) Scheduled PRN Quetiapine Fumarate (Seroquel) 25 Mg Tablet, 12.5 MG PO BIDP PRN for ANXIETY/AGITATION Allergies Coded Allergies: No Known Allergies (Unverified , 01/19/19) Maxine Monge MD Dec 24, 2020 12:07
== END 2020-12-23 10:47 | disposition home or self-care (01) ==
LOC: M ED 11:10 → M ED INP 13:26 → ENRESERV 12-23 01:27 → M MSPAV 12-23 02:37
PROVIDERS: ADMIT Internal Medicine Nephrology; ATTEND Internal Medicine Nephrology
DX: R47.01 Aphasia (principal); F03.90 Unspecified dementia, unspecified severity, without behavioral disturbance, psychotic disturbance, mood disturbance, and anxiety; E03.9 Hypothyroidism, unspecified; K21.9 Gastro-esophageal reflux disease without esophagitis; K44.9 Diaphragmatic hernia without obstruction or gangrene; K57.90 Diverticulosis of intestine, part unspecified, without perforation or abscess without bleeding; Z79.82 Long term (current) use of aspirin; Z79.899 Other long term (current) drug therapy
CPT/HCPCS: 70450; 70496; 70498; 70551; 71045; 80047; 82550; 82553; 84484; 85025; 85610; 85730; 86850; 86900; 86901; 87631; 93005; 93041; 94760; 99285; G0378; Q9967

== ENCOUNTER → 2021-01-29 | Outpatient (REF) | payer MEDICARE, OTHER, BC ==
[~2021-01-29] MED LIST changes: +ASPI81TA26 PO; +PANT40TA29 PO; +SERO1TAB3 PO; +SYNT75TA PO
== END ==
LOC: M LAB REF 16:27
PROVIDERS: ATTEND Internal Medicine
DX: R35.0 Frequency of micturition (principal)

== ENCOUNTER → 2021-03-28 | Outpatient (REF) | payer MEDICARE, OTHER, BC ==
[~2021-03-28] MED LIST changes: -DICY20TA11 PO; +DICY20TA20 PO
[2021-03-28 12:57] LABS: BACTERIA, URINE AUTO NEGATIVE (NEGATIVE); MUCUS, URINE SMALL (NEGATIVE); RBC, URINE AUTO 4 /HPF (0-3); SQUAMOUS EPITHELIAL CELL UR AU 0 /HPF (0-6); WBC, URINE AUTO 1 /HPF (0-3)
== END ==
LOC: M LAB REF 12:20
PROVIDERS: ATTEND Internal Medicine
DX: R35.0 Frequency of micturition (principal); R31.9 Hematuria, unspecified

== ENCOUNTER 2021-04-12 14:01 | Emergency (ER) | payer MEDICARE, BC, OTHER ==
[~2021-04-12] VITALS: Ht 157.5 cm; Wt 63.0 kg
[~2021-04-12 14:01] MED LIST changes: +OMEP-173; -OMEP-218
[2021-04-12] MEDS ORDERED: MIRT1TAB (14:25)
[2021-04-12 15:39] LABS: BASO # 0.1 10^3/uL (0.0-0.2); BASO % 0.8 % (0.0-1.0); EOS # 0.1 10^3/uL (0.0-0.5); EOS % 1.3 % (0.0-3.0); HEMATOCRIT 37.6 % (36.0-47.0); HEMOGLOBIN 12.4 g/dl (12.0-15.5); LYMPH # 2.1 10^3/uL (1.5-5.0); LYMPH % 29.1 % (24.0-44.0); MEAN CORPUSCULAR HEMOGLOBIN 30.3 pg (27.0-33.0); MEAN CORPUSCULAR VOLUME 91.9 fl (80.0-96.0); MONO # 0.9 10^3/uL (0.0-0.8); MONO % 13.1 % (2.0-8.0); NEUTROPHILS # 3.9 10^3/uL (1.5-8.5); NEUTROPHILS % 55.4 % (36.0-66.0); PLATELET COUNT, AUTOMATED 278 10^3/uL (150-450); RED BLOOD COUNT 4.09 10^6/uL (4.00-5.40); WHITE BLOOD COUNT 7.1 10^3/uL (4.0-10.0)
[2021-04-12 16:04] LABS: BLOOD UREA NITROGEN 16 MG/DL (7-18); CALCIUM LEVEL 8.5 MG/DL (8.8-10.2); CARBON DIOXIDE LEVEL 31 MEQ/L (21-32); CHLORIDE LEVEL 108 MEQ/L (98-107); CREATININE FOR GFR 0.67 MG/DL (0.55-1.30); GLOMERULAR FILTRATION RATE > 60.0 (>39); GLUCOSE, FASTING 99 MG/DL (70-100); POTASSIUM SERUM 3.9 MEQ/L (3.5-5.1); SODIUM LEVEL 144 MEQ/L (136-145)
[2021-04-12 17:12] VITALS: BP 133/84
== END 2021-04-12 17:13 | disposition home or self-care (01) ==
LOC: EDBD 14:01 → M ED 14:01
DX: F03.90 Unspecified dementia, unspecified severity, without behavioral disturbance, psychotic disturbance, mood disturbance, and anxiety (principal); Z86.73 Personal history of transient ischemic attack (TIA), and cerebral infarction without residual deficits; E03.9 Hypothyroidism, unspecified; K21.9 Gastro-esophageal reflux disease without esophagitis; Z79.890 Hormone replacement therapy; Z79.899 Other long term (current) drug therapy

== ENCOUNTER → 2021-07-07 | Outpatient (REF) | payer MEDICARE, BC, OTHER ==
[~2021-07-07] MED LIST changes: +MIRT1TAB
== END ==
LOC: M WUC 18:05
PROVIDERS: ATTEND Physician Assistant
DX: N39.0 Urinary tract infection, site not specified (principal)

== ENCOUNTER 2021-08-04 10:28 | Emergency (ER) | payer MEDICARE, BC, OTHER ==
[~2021-08-04] VITALS: Ht 154.9 cm; Wt 54.4 kg
[~2021-08-04 10:28] MED LIST changes: -MIRT1TAB; +MIRT1TAB PO
[2021-08-04] MEDS ORDERED: RISP0.5T21 PO (10:44)
[2021-08-04 11:17] LABS: BASO % 0.5 % (0.0-1.0); EOS % 0.5 % (0.0-3.0); HEMATOCRIT 36.1 % (36.0-47.0); HEMOGLOBIN 11.9 g/dl (12.0-15.5); LYMPH # 1.5 10^3/uL (1.5-5.0); LYMPH % 18.8 % (24.0-44.0); MONO # 0.9 10^3/uL (0.0-0.8); MONO % 10.7 % (2.0-8.0); NEUTROPHILS # 5.6 10^3/uL (1.5-8.5); PLATELET COUNT, AUTOMATED 257 10^3/uL (150-450); RED BLOOD COUNT 3.84 10^6/uL (4.00-5.40)
[2021-08-04 11:30] VITALS: BP 124/58
[2021-08-04 11:32] LABS: OSMOLALITY SERUM 291 MOSM/KG (280-301)
[2021-08-04 11:41] LABS: ALBUMIN 3.2 GM/DL (3.2-5.2); ALT/SGPT 17 U/L (12-78); BILIRUBIN,DIRECT < 0.1 MG/DL (0.0-0.2); BILIRUBIN,TOTAL 0.2 MG/DL (0.2-1.0); BLOOD UREA NITROGEN 18 MG/DL (7-18); CARBON DIOXIDE LEVEL 29 MEQ/L (21-32); CHLORIDE LEVEL 108 MEQ/L (98-107); CREATININE FOR GFR 0.68 MG/DL (0.55-1.30); GLOMERULAR FILTRATION RATE > 60.0 (>39); GLUCOSE, FASTING 89 MG/DL (70-100); POTASSIUM SERUM 4.2 MEQ/L (3.5-5.1); SODIUM LEVEL 142 MEQ/L (136-145); TOTAL PROTEIN 6.6 GM/DL (6.4-8.2)
[2021-08-04] MEDS ORDERED: HALOPERIDOL 5MG/ML VIAL (J1630 PER 1) IV STA (13:24)
[2021-08-04 14:23] LABS: RSV AMPLIFICATION NEGATIVE (NEGATIVE)
== END 2021-08-04 14:42 | disposition home or self-care (01) ==
LOC: M ED 10:28
DX: F03.90 Unspecified dementia, unspecified severity, without behavioral disturbance, psychotic disturbance, mood disturbance, and anxiety (principal); D32.9 Benign neoplasm of meninges, unspecified; G31.9 Degenerative disease of nervous system, unspecified; R42 Dizziness and giddiness; H40.9 Unspecified glaucoma; R47.01 Aphasia; Z79.82 Long term (current) use of aspirin; Z79.899 Other long term (current) drug therapy
CPT/HCPCS: 70450; 80048; 80076; 81001; 83930; 84443; 84484; 85025; 87631; 93005; 93041; 94760; 96374; 99285; J1630

== ENCOUNTER 2021-08-30 13:34 | Observation (INO) | payer MEDICARE, BC, OTHER ==
[~2021-08-30] VITALS: Ht 157.5 cm; Wt 55.0 kg
[~2021-08-30 13:34] MED LIST changes: +RISP0.5T21 PO
[2021-08-30] MEDS ORDERED: RISP-7 PO (14:06)
[2021-08-30] MEDS ORDERED: EUTH75TA PO (14:06)
[2021-08-30 15:06] LABS: BASO # 0.1 10^3/uL (0.0-0.2); BASO % 0.7 % (0.0-1.0); EOS % 0.5 % (0.0-3.0); HEMATOCRIT 39.7 % (36.0-47.0); LYMPH # 1.9 10^3/uL (1.5-5.0); MEAN CORPUSCULAR HEMOGLOBIN 31.2 pg (27.0-33.0); MEAN CORPUSCULAR HGB CONC 32.7 g/dl (32.0-36.5); MEAN CORPUSCULAR VOLUME 95.2 fl (80.0-96.0); MONO # 0.9 10^3/uL (0.0-0.8); MONO % 10.7 % (2.0-8.0); NEUTROPHILS # 5.4 10^3/uL (1.5-8.5); NEUTROPHILS % 64.6 % (36.0-66.0); PLATELET COUNT, AUTOMATED 291 10^3/uL (150-450); RED BLOOD COUNT 4.17 10^6/uL (4.00-5.40); WHITE BLOOD COUNT 8.4 10^3/uL (4.0-10.0)
[2021-08-30 15:53] LABS: ALBUMIN 3.7 GM/DL (3.2-5.2); ALT/SGPT 18 U/L (12-78); BILIRUBIN,DIRECT 0.1 MG/DL (0.0-0.2); BILIRUBIN,TOTAL 0.3 MG/DL (0.2-1.0); BLOOD UREA NITROGEN 15 MG/DL (7-18); CALCIUM LEVEL 8.4 MG/DL (8.8-10.2); CARBON DIOXIDE LEVEL 29 MEQ/L (21-32); CHLORIDE LEVEL 108 MEQ/L (98-107); CREATININE FOR GFR 0.67 MG/DL (0.55-1.30); FREE T4 1.04 NG/DL (0.76-1.46); GLOMERULAR FILTRATION RATE > 60.0 (>39); GLUCOSE, FASTING 76 MG/DL (70-100); POTASSIUM SERUM 4.1 MEQ/L (3.5-5.1); SODIUM LEVEL 141 MEQ/L (136-145); TOTAL PROTEIN 7.1 GM/DL (6.4-8.2)
[2021-08-30] MEDS ORDERED: ROLLMIS8 XX (17:01)
[2021-08-30] MEDS ORDERED: risperiDONE 0.5 MG TAB PO STA (18:14)
[2021-08-30] MEDS ORDERED: LORazepam 2 MG/ML VIAL IM STA ×2 (18:20→18:53)
[2021-08-30] MEDS ORDERED: TIMO0.5S39 OU (20:22)
[2021-08-30] MEDS ORDERED: HOME MED LIST COMPLETE! XX SCH (20:25)
[2021-08-30] MEDS ORDERED: HALOPERIDOL 5MG/ML VIAL (J1630 PER 1) IM STA (20:34)
[2021-08-30] MEDS ORDERED: RAMELTEON 8 MG TAB (ROZEREM) PO PRN (20:35)
[2021-08-30] MEDS ORDERED: ACETAMINOPHEN TAB 650MG DOSE (2X325MG) PO PRN (20:35)
[2021-08-30] MEDS ORDERED: MIRTAZAPINE 7.5MG PER 1/2 TABLET PO SCH (21:00)
[2021-08-30 22:35] LABS: RSV AMPLIFICATION NEGATIVE (NEGATIVE)
[2021-08-30 23:37] VITALS: BP 84/65
[2021-08-30 23:50] VITALS: BP 100/54
[2021-08-31 06:00] VITALS: BP 130/60
[2021-08-31] MEDS ORDERED: LEVOTHYROXINE 75MCG TABLET (0.075MG) PO SCH (06:00)
[2021-08-31 06:23] LABS: HEMATOCRIT 35.6 % (36.0-47.0); HEMOGLOBIN 11.7 g/dl (12.0-15.5); MEAN CORPUSCULAR HEMOGLOBIN 31.1 pg (27.0-33.0); MEAN CORPUSCULAR HGB CONC 32.9 g/dl (32.0-36.5); MEAN CORPUSCULAR VOLUME 94.7 fl (80.0-96.0); PLATELET COUNT, AUTOMATED 258 10^3/uL (150-450); RED BLOOD COUNT 3.76 10^6/uL (4.00-5.40); WHITE BLOOD COUNT 7.4 10^3/uL (4.0-10.0)
[2021-08-31 06:58] LABS: ALBUMIN 3.1 GM/DL (3.2-5.2); ALT/SGPT 21 U/L (12-78); BILIRUBIN,TOTAL 0.4 MG/DL (0.2-1.0); BLOOD UREA NITROGEN 17 MG/DL (7-18); CALCIUM LEVEL 9.3 MG/DL (8.8-10.2); CARBON DIOXIDE LEVEL 29 MEQ/L (21-32); CHLORIDE LEVEL 108 MEQ/L (98-107); CREATININE FOR GFR 0.74 MG/DL (0.55-1.30); GLOMERULAR FILTRATION RATE > 60.0 (>39); GLUCOSE, FASTING 78 MG/DL (70-100); MAGNESIUM LEVEL 2.4 MG/DL (1.8-2.4); POTASSIUM SERUM 4.1 MEQ/L (3.5-5.1); SODIUM LEVEL 143 MEQ/L (136-145); TOTAL PROTEIN 6.1 GM/DL (6.4-8.2)
[2021-08-31] MEDS ORDERED: TIMOLOL XE GFS 0.5% OPHTH 5 ML OU SCH (09:00)
[2021-08-31] MEDS ORDERED: TIMOLOL MALEATE 0.5% OPHTH SOLN 5 ML OU SCH (09:00)
[2021-08-31] MEDS ORDERED: ENOXAPARIN 40MG/0.4ML SYRINGE (J1650 PER 10MG) SC SCH (09:00)
[2021-08-31] MEDS ORDERED: PANTOPRAZOLE 20 MG TAB PO SCH (09:00)
[2021-08-31] MEDS ORDERED: risperiDONE 0.5 MG TAB PO SCH (09:00)
[2021-08-31] MEDS ORDERED: ASPIRIN 81MG ENTERIC TABLET PO SCH (09:00)
== END 2021-08-31 12:55 | disposition home health service (06) ==
LOC: M ED 13:34 → M ED INP 20:32 → ENRESERV 22:54 → M MS5PR 23:30
PROVIDERS: ADMIT Internal Medicine; ATTEND Internal Medicine Nephrology
DX: R26.9 Unspecified abnormalities of gait and mobility (principal); W19.XXXA Unspecified fall, initial encounter; R55 Syncope and collapse; R54 Age-related physical debility; F03.90 Unspecified dementia, unspecified severity, without behavioral disturbance, psychotic disturbance, mood disturbance, and anxiety; R47.01 Aphasia; D32.9 Benign neoplasm of meninges, unspecified; R20.2 Paresthesia of skin; G43.909 Migraine, unspecified, not intractable, without status migrainosus; E03.9 Hypothyroidism, unspecified; K21.9 Gastro-esophageal reflux disease without esophagitis; H81.10 Benign paroxysmal vertigo, unspecified ear; Z79.82 Long term (current) use of aspirin; Z86.73 Personal history of transient ischemic attack (TIA), and cerebral infarction without residual deficits; Z79.899 Other long term (current) drug therapy; G50.0 Trigeminal neuralgia
CPT/HCPCS: 36415; 70450; 71045; 72125; 80048; 80053; 80076; 81001; 83735; 84439; 84443; 85025; 85027; 87086; 87631; 93005; 96372; 97161; 99285; G0378; J1630; J1650; J2060

== ENCOUNTER 2021-09-09 11:17 | Inpatient (IN) | payer MEDICARE, BC, OTHER, MEDICAID ==
[~2021-09-09] VITALS: Ht 154.9 cm; Wt 60.0 kg
[2021-09-09] MEDS: ENOXAPARIN 40MG/0.4ML SYRINGE (J1650 PER 10MG) SC SCH (09:00)
[~2021-09-09 11:17] MED LIST changes: +EUTH75TA PO; +RISP-7 PO; +ROLLMIS8 XX; +TIMO0.5S39 OU
[2021-09-09 12:00] LABS: BASO # 0.1 10^3/uL (0.0-0.2); BASO % 0.8 % (0.0-1.0); EOS % 0.6 % (0.0-3.0); HEMATOCRIT 37.1 % (36.0-47.0); HEMOGLOBIN 12.1 g/dl (12.0-15.5); LYMPH # 1.5 10^3/uL (1.5-5.0); LYMPH % 22.3 % (24.0-44.0); MEAN CORPUSCULAR HEMOGLOBIN 31.3 pg (27.0-33.0); MEAN CORPUSCULAR HGB CONC 32.6 g/dl (32.0-36.5); MEAN CORPUSCULAR VOLUME 95.9 fl (80.0-96.0); MONO # 0.7 10^3/uL (0.0-0.8); MONO % 10.4 % (2.0-8.0); NEUTROPHILS # 4.3 10^3/uL (1.5-8.5); NEUTROPHILS % 65.4 % (36.0-66.0); PLATELET COUNT, AUTOMATED 282 10^3/uL (150-450); RED BLOOD COUNT 3.87 10^6/uL (4.00-5.40); WHITE BLOOD COUNT 6.5 10^3/uL (4.0-10.0)
[2021-09-09 12:54] LABS: ALBUMIN 3.3 GM/DL (3.2-5.2); ALT/SGPT 19 U/L (12-78); BILIRUBIN,DIRECT < 0.1 MG/DL (0.0-0.2); BILIRUBIN,TOTAL 0.3 MG/DL (0.2-1.0); BLOOD UREA NITROGEN 16 MG/DL (7-18); CALCIUM LEVEL 9.1 MG/DL (8.8-10.2); CARBON DIOXIDE LEVEL 25 MEQ/L (21-32); CHLORIDE LEVEL 110 MEQ/L (98-107); CREATININE FOR GFR 0.74 MG/DL (0.55-1.30); GLOMERULAR FILTRATION RATE > 60.0 (>39); GLUCOSE, FASTING 95 MG/DL (70-100); POTASSIUM SERUM 3.8 MEQ/L (3.5-5.1); SODIUM LEVEL 142 MEQ/L (136-145); TOTAL PROTEIN 6.9 GM/DL (6.4-8.2)
[2021-09-09 13:00] LABS: ETHYL ALCOHOL (ETHANOL) < 0.003 % (0.000-0.010)
[2021-09-09 13:13] LABS: OSMOLALITY SERUM 295 MOSM/KG (280-301)
[2021-09-09 13:15] LABS: AMPHETAMINES LEVEL URINE NEGATIVE (NEGATIVE); BARBITURATES URINE NEGATIVE (NEGATIVE); BENZODIAZEPINES URINE NEGATIVE (NEGATIVE); CANNABINOIDS URINE NEGATIVE (NEGATIVE); COCAINE METABOLITE URINE NEGATIVE (NEGATIVE); METHADONE URINE NEGATIVE (NEGATIVE); OPIATES URINE NEGATIVE (NEGATIVE); PHENCYCLIDINE URINE NEGATIVE (NEGATIVE)
[2021-09-09 13:57] LABS: MB/CK RELATIVE INDEX 1.38 (< OR =4)
[2021-09-09] MEDS ORDERED: HALOPERIDOL 5MG/ML VIAL (J1630 PER 1) As Ordered ONE (14:09)
[2021-09-09] MEDS ORDERED: HALOPERIDOL 5MG/ML VIAL (J1630 PER 1) IV ONE (14:10)
[2021-09-09] MEDS ORDERED: MOM 30ML SUSPENSION UDC PO PRN (15:10)
[2021-09-09] MEDS ORDERED: HOME MED LIST COMPLETE! XX SCH (15:20)
[2021-09-09 19:44] VITALS: BP 105/61
[2021-09-09] MEDS: HALOPERIDOL 5MG/ML VIAL (J1630 PER 1) IV PRN (20:46)
[2021-09-09] MEDS: MIRTAZAPINE 7.5MG PER 1/2 TABLET PO SCH (21:30)
[2021-09-09] MEDS: risperiDONE 0.5 MG TAB PO SCH (21:30)
[2021-09-09] MEDS ORDERED: OLANZapine INTRAMUSCULAR 10MG VIAL IM ONE (21:40)
[2021-09-10] MEDS: ACETAMINOPHEN TAB 650MG DOSE (2X325MG) PO PRN ×2 (02:09→21:00)
[2021-09-10] MEDS: LEVOTHYROXINE 75MCG TABLET (0.075MG) PO SCH (05:44)
[2021-09-10 06:18] LABS: HEMATOCRIT 37.7 % (36.0-47.0); HEMOGLOBIN 12.6 g/dl (12.0-15.5); MEAN CORPUSCULAR HEMOGLOBIN 31.5 pg (27.0-33.0); MEAN CORPUSCULAR HGB CONC 33.4 g/dl (32.0-36.5); MEAN CORPUSCULAR VOLUME 94.3 fl (80.0-96.0); PLATELET COUNT, AUTOMATED 291 10^3/uL (150-450); WHITE BLOOD COUNT 9.7 10^3/uL (4.0-10.0)
[2021-09-10 06:43] LABS: ALBUMIN 3.4 GM/DL (3.2-5.2); ALT/SGPT 22 U/L (12-78); BILIRUBIN,TOTAL 0.5 MG/DL (0.2-1.0); BLOOD UREA NITROGEN 14 MG/DL (7-18); CALCIUM LEVEL 9.3 MG/DL (8.8-10.2); CARBON DIOXIDE LEVEL 28 MEQ/L (21-32); CHLORIDE LEVEL 108 MEQ/L (98-107); CREATININE FOR GFR 0.63 MG/DL (0.55-1.30); GLOMERULAR FILTRATION RATE > 60.0 (>39); GLUCOSE, FASTING 82 MG/DL (70-100); MAGNESIUM LEVEL 2.4 MG/DL (1.8-2.4); POTASSIUM SERUM 4.1 MEQ/L (3.5-5.1); SODIUM LEVEL 142 MEQ/L (136-145); TOTAL PROTEIN 6.4 GM/DL (6.4-8.2)
[2021-09-10] MEDS: HALOPERIDOL 5MG/ML VIAL (J1630 PER 1) IV PRN (08:03)
[2021-09-10] MEDS: ASPIRIN 81MG ENTERIC TABLET PO SCH (09:05)
[2021-09-10] MEDS: PANTOPRAZOLE 20 MG TAB PO SCH (09:05)
[2021-09-10] MEDS: risperiDONE 0.5 MG TAB PO SCH (09:05)
[2021-09-10] MEDS: ENOXAPARIN 40MG/0.4ML SYRINGE (J1650 PER 10MG) SC SCH (09:06)
[2021-09-10] MEDS: OLANZapine INTRAMUSCULAR 10MG VIAL IM PRN (12:35)
[2021-09-10 14:00] VITALS: BP 120/62
[2021-09-10] MEDS: QUEtiapine FUMARATE 50MG TAB PO SCH (18:15)
[2021-09-10 19:44] VITALS: BP 118/71
[2021-09-10] MEDS: MIRTAZAPINE 7.5MG PER 1/2 TABLET PO SCH (20:59)
[2021-09-11] MEDS: OLANZapine INTRAMUSCULAR 10MG VIAL IM PRN (03:25)
[2021-09-11 05:23] VITALS: BP 126/52
[2021-09-11] MEDS: LEVOTHYROXINE 75MCG TABLET (0.075MG) PO SCH (05:29)
[2021-09-11 08:42] LABS: BASO # 0.1 10^3/uL (0.0-0.2); BASO % 0.7 % (0.0-1.0); EOS # 0.1 10^3/uL (0.0-0.5); EOS % 1.7 % (0.0-3.0); HEMATOCRIT 38.6 % (36.0-47.0); HEMOGLOBIN 12.8 g/dl (12.0-15.5); LYMPH # 2.1 10^3/uL (1.5-5.0); LYMPH % 28.6 % (24.0-44.0); MEAN CORPUSCULAR HEMOGLOBIN 31.4 pg (27.0-33.0); MEAN CORPUSCULAR HGB CONC 33.2 g/dl (32.0-36.5); MEAN CORPUSCULAR VOLUME 94.6 fl (80.0-96.0); MONO # 0.9 10^3/uL (0.0-0.8); MONO % 12.3 % (2.0-8.0); NEUTROPHILS # 4.2 10^3/uL (1.5-8.5); NEUTROPHILS % 56.3 % (36.0-66.0); PLATELET COUNT, AUTOMATED 278 10^3/uL (150-450); RED BLOOD COUNT 4.08 10^6/uL (4.00-5.40); WHITE BLOOD COUNT 7.5 10^3/uL (4.0-10.0)
[2021-09-11] MEDS: HALOPERIDOL 5MG/ML VIAL (J1630 PER 1) IV PRN (08:56)
[2021-09-11 09:07] LABS: BLOOD UREA NITROGEN 15 MG/DL (7-18); CARBON DIOXIDE LEVEL 28 MEQ/L (21-32); CHLORIDE LEVEL 110 MEQ/L (98-107); CREATININE FOR GFR 0.66 MG/DL (0.55-1.30); GLOMERULAR FILTRATION RATE > 60.0 (>39); GLUCOSE, FASTING 91 MG/DL (70-100); MAGNESIUM LEVEL 2.5 MG/DL (1.8-2.4); POTASSIUM SERUM 4.4 MEQ/L (3.5-5.1); SODIUM LEVEL 142 MEQ/L (136-145)
[2021-09-11] MEDS: PANTOPRAZOLE 20 MG TAB PO SCH (10:30)
[2021-09-11] MEDS: QUEtiapine FUMARATE 50MG TAB PO SCH (10:31)
[2021-09-11] MEDS: ENOXAPARIN 40MG/0.4ML SYRINGE (J1650 PER 10MG) SC SCH (10:31)
[2021-09-11] MEDS: ASPIRIN 81MG ENTERIC TABLET PO SCH (10:31)
[2021-09-11] MEDS ORDERED: QUEtiapine FUMARATE 50MG TAB PO ONE (10:40)
[2021-09-11 14:00] VITALS: BP 111/52
[2021-09-11] MEDS: QUEtiapine FUMARATE 100 MG TAB PO SCH (18:16)
[2021-09-11] MEDS: MIRTAZAPINE 7.5MG PER 1/2 TABLET PO SCH (20:54)
[2021-09-11] MEDS: ACETAMINOPHEN TAB 650MG DOSE (2X325MG) PO PRN (20:54)
[2021-09-11 22:00] VITALS: BP 119/52
[2021-09-12] MEDS: LEVOTHYROXINE 75MCG TABLET (0.075MG) PO SCH (05:23)
[2021-09-12 06:00] VITALS: BP 100/52
[2021-09-12 06:33] LABS: BASO # 0.1 10^3/uL (0.0-0.2); BASO % 0.8 % (0.0-1.0); EOS # 0.1 10^3/uL (0.0-0.5); EOS % 1.9 % (0.0-3.0); HEMATOCRIT 42.5 % (36.0-47.0); HEMOGLOBIN 13.7 g/dl (12.0-15.5); LYMPH # 2.5 10^3/uL (1.5-5.0); LYMPH % 34.1 % (24.0-44.0); MEAN CORPUSCULAR HEMOGLOBIN 30.2 pg (27.0-33.0); MEAN CORPUSCULAR HGB CONC 32.2 g/dl (32.0-36.5); MEAN CORPUSCULAR VOLUME 93.6 fl (80.0-96.0); MONO % 13.6 % (2.0-8.0); NEUTROPHILS # 3.7 10^3/uL (1.5-8.5); NEUTROPHILS % 49.1 % (36.0-66.0); PLATELET COUNT, AUTOMATED 312 10^3/uL (150-450); RED BLOOD COUNT 4.54 10^6/uL (4.00-5.40); WHITE BLOOD COUNT 7.4 10^3/uL (4.0-10.0)
[2021-09-12 07:03] LABS: BLOOD UREA NITROGEN 18 MG/DL (7-18); CALCIUM LEVEL 9.6 MG/DL (8.8-10.2); CARBON DIOXIDE LEVEL 30 MEQ/L (21-32); CHLORIDE LEVEL 107 MEQ/L (98-107); CREATININE FOR GFR 0.71 MG/DL (0.55-1.30); GLOMERULAR FILTRATION RATE > 60.0 (>39); GLUCOSE, FASTING 83 MG/DL (70-100); MAGNESIUM LEVEL 2.4 MG/DL (1.8-2.4); POTASSIUM SERUM 4.3 MEQ/L (3.5-5.1); SODIUM LEVEL 142 MEQ/L (136-145)
[2021-09-12] MEDS: PANTOPRAZOLE 20 MG TAB PO SCH (08:45)
[2021-09-12] MEDS: ENOXAPARIN 40MG/0.4ML SYRINGE (J1650 PER 10MG) SC SCH (08:45)
[2021-09-12] MEDS: ASPIRIN 81MG ENTERIC TABLET PO SCH (08:45)
[2021-09-12] MEDS: QUEtiapine FUMARATE 100 MG TAB PO SCH ×2 (08:46→17:20)
[2021-09-12 14:00] VITALS: BP 95/48
[2021-09-12 18:33] VITALS: BP 137/79
[2021-09-12] MEDS: MIRTAZAPINE 7.5MG PER 1/2 TABLET PO SCH (20:31)
[2021-09-13] MEDS: LEVOTHYROXINE 75MCG TABLET (0.075MG) PO SCH (05:32)
[2021-09-13 06:00] VITALS: BP 124/59
[2021-09-13 06:11] LABS: BASO % 0.5 % (0.0-1.0); EOS # 0.1 10^3/uL (0.0-0.5); EOS % 1.2 % (0.0-3.0); HEMATOCRIT 40.4 % (36.0-47.0); HEMOGLOBIN 13.2 g/dl (12.0-15.5); LYMPH # 2.1 10^3/uL (1.5-5.0); LYMPH % 27.6 % (24.0-44.0); MEAN CORPUSCULAR HEMOGLOBIN 30.6 pg (27.0-33.0); MEAN CORPUSCULAR HGB CONC 32.7 g/dl (32.0-36.5); MEAN CORPUSCULAR VOLUME 93.5 fl (80.0-96.0); MONO # 1.1 10^3/uL (0.0-0.8); MONO % 13.7 % (2.0-8.0); NEUTROPHILS # 4.4 10^3/uL (1.5-8.5); NEUTROPHILS % 56.7 % (36.0-66.0); PLATELET COUNT, AUTOMATED 296 10^3/uL (150-450); RED BLOOD COUNT 4.32 10^6/uL (4.00-5.40); WHITE BLOOD COUNT 7.7 10^3/uL (4.0-10.0)
[2021-09-13 06:40] LABS: BLOOD UREA NITROGEN 17 MG/DL (7-18); CALCIUM LEVEL 9.2 MG/DL (8.8-10.2); CARBON DIOXIDE LEVEL 28 MEQ/L (21-32); CHLORIDE LEVEL 108 MEQ/L (98-107); CREATININE FOR GFR 0.73 MG/DL (0.55-1.30); GLOMERULAR FILTRATION RATE > 60.0 (>39); GLUCOSE, FASTING 85 MG/DL (70-100); MAGNESIUM LEVEL 2.3 MG/DL (1.8-2.4); POTASSIUM SERUM 4.2 MEQ/L (3.5-5.1); SODIUM LEVEL 143 MEQ/L (136-145)
[2021-09-13] MEDS: QUEtiapine FUMARATE 100 MG TAB PO SCH ×2 (08:16→18:16)
[2021-09-13] MEDS: PANTOPRAZOLE 20 MG TAB PO SCH (08:16)
[2021-09-13] MEDS: ASPIRIN 81MG ENTERIC TABLET PO SCH (08:16)
[2021-09-13] MEDS: ENOXAPARIN 40MG/0.4ML SYRINGE (J1650 PER 10MG) SC SCH (08:17)
[2021-09-13 14:00] VITALS: BP 85/65
[2021-09-13 14:30] VITALS: BP 86/44
[2021-09-13] MEDS ORDERED: NS 1,000 ML IV ONE (15:10)
[2021-09-13 16:30] VITALS: BP 128/54
[2021-09-13] MEDS: MIRTAZAPINE 7.5MG PER 1/2 TABLET PO SCH (20:50)
[2021-09-13] MEDS: OLANZapine INTRAMUSCULAR 10MG VIAL IM PRN (20:50)
[2021-09-14] MEDS: LEVOTHYROXINE 75MCG TABLET (0.075MG) PO SCH (05:26)
[2021-09-14 05:57] LABS: BASO % 0.4 % (0.0-1.0); EOS # 0.1 10^3/uL (0.0-0.5); EOS % 1.2 % (0.0-3.0); HEMATOCRIT 37.5 % (36.0-47.0); HEMOGLOBIN 12.3 g/dl (12.0-15.5); LYMPH # 2.1 10^3/uL (1.5-5.0); LYMPH % 28.6 % (24.0-44.0); MEAN CORPUSCULAR HEMOGLOBIN 30.4 pg (27.0-33.0); MEAN CORPUSCULAR HGB CONC 32.8 g/dl (32.0-36.5); MEAN CORPUSCULAR VOLUME 92.6 fl (80.0-96.0); MONO % 13.8 % (2.0-8.0); NEUTROPHILS # 4.2 10^3/uL (1.5-8.5); NEUTROPHILS % 55.6 % (36.0-66.0); PLATELET COUNT, AUTOMATED 286 10^3/uL (150-450); RED BLOOD COUNT 4.05 10^6/uL (4.00-5.40); WHITE BLOOD COUNT 7.5 10^3/uL (4.0-10.0)
[2021-09-14 06:13] LABS: BLOOD UREA NITROGEN 16 MG/DL (7-18); CALCIUM LEVEL 8.8 MG/DL (8.8-10.2); CARBON DIOXIDE LEVEL 25 MEQ/L (21-32); CHLORIDE LEVEL 110 MEQ/L (98-107); CREATININE FOR GFR 0.64 MG/DL (0.55-1.30); GLOMERULAR FILTRATION RATE > 60.0 (>39); GLUCOSE, FASTING 126 MG/DL (70-100); MAGNESIUM LEVEL 2.2 MG/DL (1.8-2.4); POTASSIUM SERUM 4.2 MEQ/L (3.5-5.1); SODIUM LEVEL 144 MEQ/L (136-145)
[2021-09-14 06:19] VITALS: BP 132/64
[2021-09-14] MEDS: ASPIRIN 81MG ENTERIC TABLET PO SCH (08:33)
[2021-09-14] MEDS: ENOXAPARIN 40MG/0.4ML SYRINGE (J1650 PER 10MG) SC SCH (08:33)
[2021-09-14] MEDS: PANTOPRAZOLE 20 MG TAB PO SCH (08:34)
[2021-09-14] MEDS: QUEtiapine FUMARATE 100 MG TAB PO SCH ×2 (08:34→17:06)
[2021-09-14] MEDS: RAMELTEON 8 MG TAB (ROZEREM) PO PRN (20:08)
[2021-09-14] MEDS: MIRTAZAPINE 7.5MG PER 1/2 TABLET PO SCH (20:08)
[2021-09-15 05:35] VITALS: BP 115/68
[2021-09-15] MEDS: LEVOTHYROXINE 75MCG TABLET (0.075MG) PO SCH (06:37)
[2021-09-15 07:26] LABS: BASO # 0.1 10^3/uL (0.0-0.2); BASO % 0.8 % (0.0-1.0); EOS # 0.1 10^3/uL (0.0-0.5); EOS % 1.8 % (0.0-3.0); HEMATOCRIT 38.4 % (36.0-47.0); LYMPH # 2.1 10^3/uL (1.5-5.0); LYMPH % 31.8 % (24.0-44.0); MEAN CORPUSCULAR HEMOGLOBIN 31.8 pg (27.0-33.0); MEAN CORPUSCULAR HGB CONC 33.9 g/dl (32.0-36.5); MEAN CORPUSCULAR VOLUME 93.9 fl (80.0-96.0); MONO % 15.2 % (2.0-8.0); NEUTROPHILS # 3.3 10^3/uL (1.5-8.5); NEUTROPHILS % 50.1 % (36.0-66.0); PLATELET COUNT, AUTOMATED 285 10^3/uL (150-450); RED BLOOD COUNT 4.09 10^6/uL (4.00-5.40); WHITE BLOOD COUNT 6.6 10^3/uL (4.0-10.0)
[2021-09-15 07:57] LABS: BLOOD UREA NITROGEN 16 MG/DL (7-18); CARBON DIOXIDE LEVEL 30 MEQ/L (21-32); CHLORIDE LEVEL 106 MEQ/L (98-107); CREATININE FOR GFR 0.68 MG/DL (0.55-1.30); GLOMERULAR FILTRATION RATE > 60.0 (>39); GLUCOSE, FASTING 86 MG/DL (70-100); MAGNESIUM LEVEL 2.1 MG/DL (1.8-2.4); POTASSIUM SERUM 4.3 MEQ/L (3.5-5.1); SODIUM LEVEL 140 MEQ/L (136-145)
[2021-09-15] MEDS: ASPIRIN 81MG ENTERIC TABLET PO SCH (08:37)
[2021-09-15] MEDS: PANTOPRAZOLE 20 MG TAB PO SCH (08:37)
[2021-09-15] MEDS: ENOXAPARIN 40MG/0.4ML SYRINGE (J1650 PER 10MG) SC SCH (08:37)
[2021-09-15] MEDS: QUEtiapine FUMARATE 100 MG TAB PO SCH ×3 (08:37→18:15)
[2021-09-15] MEDS: RAMELTEON 8 MG TAB (ROZEREM) PO PRN (20:29)
[2021-09-15] MEDS: MIRTAZAPINE 7.5MG PER 1/2 TABLET PO SCH (20:29)
[2021-09-15] MEDS: OLANZapine INTRAMUSCULAR 10MG VIAL IM PRN (22:53)
[2021-09-16] MEDS: LEVOTHYROXINE 75MCG TABLET (0.075MG) PO SCH (05:51)
[2021-09-16 06:13] LABS: BASO # 0.1 10^3/uL (0.0-0.2); BASO % 0.8 % (0.0-1.0); EOS # 0.1 10^3/uL (0.0-0.5); EOS % 1.8 % (0.0-3.0); HEMATOCRIT 38.8 % (36.0-47.0); HEMOGLOBIN 12.7 g/dl (12.0-15.5); LYMPH # 2.3 10^3/uL (1.5-5.0); LYMPH % 28.3 % (24.0-44.0); MEAN CORPUSCULAR HEMOGLOBIN 30.2 pg (27.0-33.0); MEAN CORPUSCULAR HGB CONC 32.7 g/dl (32.0-36.5); MEAN CORPUSCULAR VOLUME 92.2 fl (80.0-96.0); MONO # 1.2 10^3/uL (0.0-0.8); MONO % 14.4 % (2.0-8.0); NEUTROPHILS # 4.4 10^3/uL (1.5-8.5); NEUTROPHILS % 54.3 % (36.0-66.0); PLATELET COUNT, AUTOMATED 286 10^3/uL (150-450); RED BLOOD COUNT 4.21 10^6/uL (4.00-5.40)
[2021-09-16 06:28] VITALS: BP 102/61
[2021-09-16 06:32] LABS: BLOOD UREA NITROGEN 16 MG/DL (7-18); CALCIUM LEVEL 9.2 MG/DL (8.8-10.2); CARBON DIOXIDE LEVEL 29 MEQ/L (21-32); CHLORIDE LEVEL 106 MEQ/L (98-107); GLOMERULAR FILTRATION RATE > 60.0 (>39); GLUCOSE, FASTING 87 MG/DL (70-100); MAGNESIUM LEVEL 2.1 MG/DL (1.8-2.4); POTASSIUM SERUM 3.9 MEQ/L (3.5-5.1); SODIUM LEVEL 140 MEQ/L (136-145)
[2021-09-16] MEDS: ASPIRIN 81MG ENTERIC TABLET PO SCH (08:21)
[2021-09-16] MEDS: QUEtiapine FUMARATE 100 MG TAB PO SCH ×2 (08:22→18:17)
[2021-09-16] MEDS: PANTOPRAZOLE 20 MG TAB PO SCH (08:22)
[2021-09-16] MEDS: ENOXAPARIN 40MG/0.4ML SYRINGE (J1650 PER 10MG) SC SCH (08:22)
[2021-09-16] MEDS: MAALOX 30 ML SUSP *UDC PO PRN (16:28)
[2021-09-16] MEDS: RAMELTEON 8 MG TAB (ROZEREM) PO PRN (21:51)
[2021-09-16] MEDS: ACETAMINOPHEN TAB 650MG DOSE (2X325MG) PO PRN (21:52)
[2021-09-16] MEDS: MIRTAZAPINE 7.5MG PER 1/2 TABLET PO SCH (21:52)
[2021-09-17 05:39] VITALS: BP 119/51
[2021-09-17] MEDS: LEVOTHYROXINE 75MCG TABLET (0.075MG) PO SCH (06:00)
[2021-09-17 06:34] LABS: BASO # 0.1 10^3/uL (0.0-0.2); BASO % 0.8 % (0.0-1.0); EOS # 0.2 10^3/uL (0.0-0.5); HEMATOCRIT 36.8 % (36.0-47.0); HEMOGLOBIN 12.2 g/dl (12.0-15.5); LYMPH # 2.1 10^3/uL (1.5-5.0); LYMPH % 35.7 % (24.0-44.0); MEAN CORPUSCULAR HEMOGLOBIN 31.1 pg (27.0-33.0); MEAN CORPUSCULAR HGB CONC 33.2 g/dl (32.0-36.5); MEAN CORPUSCULAR VOLUME 93.9 fl (80.0-96.0); MONO # 0.9 10^3/uL (0.0-0.8); MONO % 14.6 % (2.0-8.0); NEUTROPHILS # 2.7 10^3/uL (1.5-8.5); NEUTROPHILS % 45.6 % (36.0-66.0); PLATELET COUNT, AUTOMATED 269 10^3/uL (150-450); RED BLOOD COUNT 3.92 10^6/uL (4.00-5.40); WHITE BLOOD COUNT 5.9 10^3/uL (4.0-10.0)
[2021-09-17 07:03] LABS: BLOOD UREA NITROGEN 18 MG/DL (7-18); CARBON DIOXIDE LEVEL 27 MEQ/L (21-32); CHLORIDE LEVEL 107 MEQ/L (98-107); CREATININE FOR GFR 0.74 MG/DL (0.55-1.30); GLOMERULAR FILTRATION RATE > 60.0 (>39); GLUCOSE, FASTING 80 MG/DL (70-100); MAGNESIUM LEVEL 2.4 MG/DL (1.8-2.4); POTASSIUM SERUM 4.2 MEQ/L (3.5-5.1); SODIUM LEVEL 143 MEQ/L (136-145)
[2021-09-17] MEDS: ASPIRIN 81MG ENTERIC TABLET PO SCH (09:00)
[2021-09-17] MEDS: PANTOPRAZOLE 20 MG TAB PO SCH (09:00)
[2021-09-17] MEDS: ENOXAPARIN 40MG/0.4ML SYRINGE (J1650 PER 10MG) SC SCH (09:00)
[2021-09-17] MEDS: QUEtiapine FUMARATE 100 MG TAB PO SCH ×2 (09:33→17:37)
[2021-09-17] MEDS: MIRTAZAPINE 7.5MG PER 1/2 TABLET PO SCH (19:59)
[2021-09-17] MEDS: ACETAMINOPHEN TAB 650MG DOSE (2X325MG) PO PRN (20:00)
[2021-09-17] MEDS: RAMELTEON 8 MG TAB (ROZEREM) PO PRN (20:00)
[2021-09-18] MEDS: OLANZapine INTRAMUSCULAR 10MG VIAL IM PRN ×2 (03:36→23:43)
[2021-09-18] MEDS: LEVOTHYROXINE 75MCG TABLET (0.075MG) PO SCH (05:13)
[2021-09-18 06:00] VITALS: BP 112/48
[2021-09-18 06:13] LABS: BASO # 0.1 10^3/uL (0.0-0.2); BASO % 0.8 % (0.0-1.0); EOS # 0.2 10^3/uL (0.0-0.5); EOS % 2.3 % (0.0-3.0); LYMPH # 2.7 10^3/uL (1.5-5.0); MEAN CORPUSCULAR HEMOGLOBIN 30.8 pg (27.0-33.0); MEAN CORPUSCULAR HGB CONC 33.3 g/dl (32.0-36.5); MEAN CORPUSCULAR VOLUME 92.4 fl (80.0-96.0); MONO # 1.2 10^3/uL (0.0-0.8); MONO % 15.1 % (2.0-8.0); NEUTROPHILS # 3.8 10^3/uL (1.5-8.5); NEUTROPHILS % 47.3 % (36.0-66.0); PLATELET COUNT, AUTOMATED 304 10^3/uL (150-450); RED BLOOD COUNT 4.22 10^6/uL (4.00-5.40); WHITE BLOOD COUNT 7.9 10^3/uL (4.0-10.0)
[2021-09-18 06:45] LABS: BLOOD UREA NITROGEN 20 MG/DL (7-18); CALCIUM LEVEL 9.2 MG/DL (8.8-10.2); CARBON DIOXIDE LEVEL 31 MEQ/L (21-32); CHLORIDE LEVEL 105 MEQ/L (98-107); CREATININE FOR GFR 0.71 MG/DL (0.55-1.30); GLOMERULAR FILTRATION RATE > 60.0 (>39); GLUCOSE, FASTING 89 MG/DL (70-100); MAGNESIUM LEVEL 2.2 MG/DL (1.8-2.4); POTASSIUM SERUM 4.1 MEQ/L (3.5-5.1); SODIUM LEVEL 139 MEQ/L (136-145)
[2021-09-18] MEDS: ENOXAPARIN 40MG/0.4ML SYRINGE (J1650 PER 10MG) SC SCH (08:19)
[2021-09-18] MEDS: QUEtiapine FUMARATE 100 MG TAB PO SCH ×2 (08:19→17:16)
[2021-09-18] MEDS: ASPIRIN 81MG ENTERIC TABLET PO SCH (08:19)
[2021-09-18] MEDS: PANTOPRAZOLE 20 MG TAB PO SCH (08:19)
[2021-09-18] MEDS: ACETAMINOPHEN TAB 650MG DOSE (2X325MG) PO PRN ×2 (10:21→18:46)
[2021-09-18] MEDS: MAALOX 30 ML SUSP *UDC PO PRN (18:46)
[2021-09-18] MEDS: MIRTAZAPINE 7.5MG PER 1/2 TABLET PO SCH (21:04)
[2021-09-18] MEDS: RAMELTEON 8 MG TAB (ROZEREM) PO PRN (21:04)
[2021-09-19] MEDS: LEVOTHYROXINE 75MCG TABLET (0.075MG) PO SCH (05:59)
[2021-09-19 06:00] VITALS: BP 117/54
[2021-09-19] MEDS: ASPIRIN 81MG ENTERIC TABLET PO SCH (08:26)
[2021-09-19] MEDS: QUEtiapine FUMARATE 100 MG TAB PO SCH ×2 (08:26→18:33)
[2021-09-19] MEDS: PANTOPRAZOLE 20 MG TAB PO SCH (08:26)
[2021-09-19] MEDS: ENOXAPARIN 40MG/0.4ML SYRINGE (J1650 PER 10MG) SC SCH (08:33)
[2021-09-19] MEDS ORDERED: OLANZapine ORAL DISINTEGRATING TAB 5MG PO PRN (16:10)
[2021-09-19] MEDS: MIRTAZAPINE 15 MG TAB PO SCH (21:14)
[2021-09-19] MEDS ORDERED: RAMELTEON 8 MG TAB (ROZEREM) PO PRN (23:55)
[2021-09-20] MEDS: ACETAMINOPHEN TAB 650MG DOSE (2X325MG) PO PRN (00:38)
[2021-09-20 05:46] VITALS: BP 119/58
[2021-09-20] MEDS: LEVOTHYROXINE 75MCG TABLET (0.075MG) PO SCH (05:53)
[2021-09-20] MEDS: ENOXAPARIN 40MG/0.4ML SYRINGE (J1650 PER 10MG) SC SCH (08:51)
[2021-09-20] MEDS: ASPIRIN 81MG ENTERIC TABLET PO SCH (08:51)
[2021-09-20] MEDS: PANTOPRAZOLE 20 MG TAB PO SCH (08:51)
[2021-09-20] MEDS: QUEtiapine FUMARATE 100 MG TAB PO SCH ×2 (08:51→17:37)
[2021-09-20] MEDS: OLANZapine ORAL DISINTEGRATING TAB 5MG PO PRN (10:19)
[2021-09-20] MEDS: MIRTAZAPINE 15 MG TAB PO SCH (20:27)
[2021-09-21] MEDS: OLANZapine ORAL DISINTEGRATING TAB 5MG PO PRN ×2 (02:43→13:31)
[2021-09-21] MEDS: LEVOTHYROXINE 75MCG TABLET (0.075MG) PO SCH (05:23)
[2021-09-21 06:00] VITALS: BP 120/53
[2021-09-21] MEDS: PANTOPRAZOLE 20 MG TAB PO SCH (08:16)
[2021-09-21] MEDS: ASPIRIN 81MG ENTERIC TABLET PO SCH (08:16)
[2021-09-21] MEDS: QUEtiapine FUMARATE 100 MG TAB PO SCH ×2 (08:16→18:21)
[2021-09-21] MEDS: ENOXAPARIN 40MG/0.4ML SYRINGE (J1650 PER 10MG) SC SCH (08:16)
[2021-09-21] MEDS: MIRTAZAPINE 15 MG TAB PO SCH (21:06)
[2021-09-22] MEDS: LEVOTHYROXINE 75MCG TABLET (0.075MG) PO SCH (05:34)
[2021-09-22 06:00] VITALS: BP 133/70
[2021-09-22] MEDS: ENOXAPARIN 40MG/0.4ML SYRINGE (J1650 PER 10MG) SC SCH (08:34)
[2021-09-22] MEDS: PANTOPRAZOLE 20 MG TAB PO SCH (08:34)
[2021-09-22] MEDS: QUEtiapine FUMARATE 100 MG TAB PO SCH ×2 (08:34→17:49)
[2021-09-22] MEDS: ASPIRIN 81MG ENTERIC TABLET PO SCH (08:34)
[2021-09-22] MEDS: OLANZapine ORAL DISINTEGRATING TAB 5MG PO PRN ×2 (08:59→20:41)
[2021-09-22] MEDS: MIRTAZAPINE 15 MG TAB PO SCH (20:41)
[2021-09-23] MEDS: LEVOTHYROXINE 75MCG TABLET (0.075MG) PO SCH (05:39)
[2021-09-23 06:00] VITALS: BP 131/72
[2021-09-23] MEDS: ASPIRIN 81MG ENTERIC TABLET PO SCH (08:16)
[2021-09-23] MEDS: ACETAMINOPHEN TAB 650MG DOSE (2X325MG) PO PRN (08:16)
[2021-09-23] MEDS: QUEtiapine FUMARATE 100 MG TAB PO SCH ×2 (08:17→17:17)
[2021-09-23] MEDS: ENOXAPARIN 40MG/0.4ML SYRINGE (J1650 PER 10MG) SC SCH (08:17)
[2021-09-23] MEDS: PANTOPRAZOLE 20 MG TAB PO SCH (08:17)
[2021-09-23] MEDS: MIRTAZAPINE 15 MG TAB PO SCH (20:24)
[2021-09-24 06:00] VITALS: BP 116/62
[2021-09-24] MEDS: LEVOTHYROXINE 75MCG TABLET (0.075MG) PO SCH (06:05)
[2021-09-24] MEDS: ENOXAPARIN 40MG/0.4ML SYRINGE (J1650 PER 10MG) SC SCH (09:00)
[2021-09-24] MEDS: ASPIRIN 81MG ENTERIC TABLET PO SCH (09:59)
[2021-09-24] MEDS: QUEtiapine FUMARATE 100 MG TAB PO SCH ×2 (09:59→18:13)
[2021-09-24] MEDS: PANTOPRAZOLE 20 MG TAB PO SCH (09:59)
[2021-09-24] MEDS: OLANZapine ORAL DISINTEGRATING TAB 5MG PO PRN (10:54)
[2021-09-24] MEDS: OLANZapine 5 MG TAB PO PRN (21:04)
[2021-09-24] MEDS: MIRTAZAPINE 15 MG TAB PO SCH (21:04)
[2021-09-25] MEDS: LEVOTHYROXINE 75MCG TABLET (0.075MG) PO SCH (05:26)
[2021-09-25 06:00] VITALS: BP 121/55
[2021-09-25] MEDS: QUEtiapine FUMARATE 100 MG TAB PO SCH (09:24)
[2021-09-25] MEDS: PANTOPRAZOLE 20 MG TAB PO SCH (09:24)
[2021-09-25] MEDS: ENOXAPARIN 40MG/0.4ML SYRINGE (J1650 PER 10MG) SC SCH (09:24)
[2021-09-25] MEDS: ASPIRIN 81MG ENTERIC TABLET PO SCH (09:24)
[2021-09-25] MEDS: OLANZapine 5 MG TAB PO PRN (09:24)
[2021-09-25] MEDS: QUEtiapine FUMARATE 50MG TAB PO SCH (18:24)
[2021-09-25] MEDS: DOCUSATE SODIUM 100MG CAPSULE PO SCH ×2 (20:56→21:00)
[2021-09-25] MEDS: MIRTAZAPINE 15 MG TAB PO SCH ×2 (20:56→21:03)
[2021-09-25] MEDS: ACETAMINOPHEN TAB 650MG DOSE (2X325MG) PO PRN (20:57)
[2021-09-26] MEDS ORDERED: diphenhydrAMINE 50MG/ML VIAL (J1200) IM ONE (02:00)
[2021-09-26] MEDS ORDERED: OLANZapine INTRAMUSCULAR 10MG VIAL IM PRN (02:00)
[2021-09-26 06:00] VITALS: BP 117/55
[2021-09-26] MEDS: LEVOTHYROXINE 75MCG TABLET (0.075MG) PO SCH (08:11)
[2021-09-26] MEDS: DOCUSATE SODIUM 100MG CAPSULE PO SCH ×3 (08:11→21:05)
[2021-09-26] MEDS: PANTOPRAZOLE 20 MG TAB PO SCH (08:11)
[2021-09-26] MEDS: ENOXAPARIN 40MG/0.4ML SYRINGE (J1650 PER 10MG) SC SCH (08:11)
[2021-09-26] MEDS: ASPIRIN 81MG ENTERIC TABLET PO SCH (08:11)
[2021-09-26] MEDS: QUEtiapine FUMARATE 50MG TAB PO SCH (08:11)
[2021-09-26] MEDS: QUEtiapine FUMARATE 100 MG TAB PO SCH (18:43)
[2021-09-26] MEDS: MIRTAZAPINE 15 MG TAB PO SCH (21:05)
[2021-09-27] MEDS: LEVOTHYROXINE 75MCG TABLET (0.075MG) PO SCH (05:37)
[2021-09-27 05:38] VITALS: BP 118/57
[2021-09-27] MEDS: QUEtiapine FUMARATE 50MG TAB PO SCH (08:57)
[2021-09-27] MEDS: ENOXAPARIN 40MG/0.4ML SYRINGE (J1650 PER 10MG) SC SCH (08:57)
[2021-09-27] MEDS: PANTOPRAZOLE 20 MG TAB PO SCH (08:57)
[2021-09-27] MEDS: DOCUSATE SODIUM 100MG CAPSULE PO SCH ×2 (08:57→21:00)
[2021-09-27] MEDS: ASPIRIN 81MG ENTERIC TABLET PO SCH (08:57)
[2021-09-27] MEDS: OLANZapine INTRAMUSCULAR 10MG VIAL IM PRN (12:54)
[2021-09-27] MEDS: QUEtiapine FUMARATE 100 MG TAB PO SCH (17:10)
[2021-09-27] MEDS: MIRTAZAPINE 15 MG TAB PO SCH (21:02)
[2021-09-28] MEDS: OLANZapine INTRAMUSCULAR 10MG VIAL IM PRN (01:52)
[2021-09-28] MEDS ORDERED: diphenhydrAMINE 50MG/ML VIAL (J1200) IM ONE (04:00)
[2021-09-28 05:18] VITALS: BP 113/58
[2021-09-28] MEDS: LEVOTHYROXINE 75MCG TABLET (0.075MG) PO SCH (05:58)
[2021-09-28] MEDS: PANTOPRAZOLE 20 MG TAB PO SCH (09:00)
[2021-09-28] MEDS: ENOXAPARIN 40MG/0.4ML SYRINGE (J1650 PER 10MG) SC SCH ×2 (09:00→10:32)
[2021-09-28] MEDS: DOCUSATE SODIUM 100MG CAPSULE PO SCH ×2 (09:17→20:28)
[2021-09-28] MEDS: ASPIRIN 81MG ENTERIC TABLET PO SCH (09:17)
[2021-09-28] MEDS: QUEtiapine FUMARATE 50MG TAB PO SCH (09:18)
[2021-09-28] MEDS: QUEtiapine FUMARATE 100 MG TAB PO SCH (18:01)
[2021-09-28] MEDS: MIRTAZAPINE 15 MG TAB PO SCH (20:28)
[2021-09-29 06:12] VITALS: BP 122/60
[2021-09-29] MEDS: LEVOTHYROXINE 75MCG TABLET (0.075MG) PO SCH (06:38)
[2021-09-29] MEDS: ENOXAPARIN 40MG/0.4ML SYRINGE (J1650 PER 10MG) SC SCH (09:00)
[2021-09-29] MEDS: QUEtiapine FUMARATE 50MG TAB PO SCH (09:13)
[2021-09-29] MEDS: ASPIRIN 81MG ENTERIC TABLET PO SCH (09:13)
[2021-09-29] MEDS: PANTOPRAZOLE 20 MG TAB PO SCH (09:13)
[2021-09-29] MEDS: DOCUSATE SODIUM 100MG CAPSULE PO SCH ×2 (09:13→21:22)
[2021-09-29] MEDS: QUEtiapine FUMARATE 100 MG TAB PO SCH (18:07)
[2021-09-29] MEDS: MIRTAZAPINE 15 MG TAB PO SCH (21:22)
[2021-09-30] MEDS: LEVOTHYROXINE 75MCG TABLET (0.075MG) PO SCH (05:38)
[2021-09-30 06:16] VITALS: BP 118/70
[2021-09-30] MEDS: DOCUSATE SODIUM 100MG CAPSULE PO SCH ×3 (11:38→19:51)
[2021-09-30] MEDS: PANTOPRAZOLE 20 MG TAB PO SCH (11:39)
[2021-09-30] MEDS: ENOXAPARIN 40MG/0.4ML SYRINGE (J1650 PER 10MG) SC SCH (11:39)
[2021-09-30] MEDS: QUEtiapine FUMARATE 50MG TAB PO SCH (11:39)
[2021-09-30] MEDS: ASPIRIN 81MG ENTERIC TABLET PO SCH (11:39)
[2021-09-30] MEDS: QUEtiapine FUMARATE 100 MG TAB PO SCH (14:37)
[2021-09-30] MEDS: MIRTAZAPINE 15 MG TAB PO SCH (19:49)
[2021-10-01] MEDS: LEVOTHYROXINE 75MCG TABLET (0.075MG) PO SCH (05:21)
[2021-10-01 06:00] VITALS: BP 129/88
[2021-10-01] MEDS: ASPIRIN 81MG ENTERIC TABLET PO SCH (08:59)
[2021-10-01] MEDS: QUEtiapine FUMARATE 50MG TAB PO SCH (08:59)
[2021-10-01] MEDS: DOCUSATE SODIUM 100MG CAPSULE PO SCH ×2 (08:59→21:03)
[2021-10-01] MEDS: PANTOPRAZOLE 20 MG TAB PO SCH (08:59)
[2021-10-01] MEDS: ENOXAPARIN 40MG/0.4ML SYRINGE (J1650 PER 10MG) SC SCH (09:00)
[2021-10-01] MEDS: OLANZapine INTRAMUSCULAR 10MG VIAL IM PRN (16:20)
[2021-10-01] MEDS: QUEtiapine FUMARATE 100 MG TAB PO SCH (17:40)
[2021-10-01] MEDS: MIRTAZAPINE 15 MG TAB PO SCH (21:03)
[2021-10-02] MEDS: LEVOTHYROXINE 75MCG TABLET (0.075MG) PO SCH (05:40)
[2021-10-02 06:00] VITALS: BP 112/73
[2021-10-02] MEDS: ENOXAPARIN 40MG/0.4ML SYRINGE (J1650 PER 10MG) SC SCH (09:44)
[2021-10-02] MEDS: PANTOPRAZOLE 20 MG TAB PO SCH (09:44)
[2021-10-02] MEDS: DOCUSATE SODIUM 100MG CAPSULE PO SCH ×2 (09:44→20:48)
[2021-10-02] MEDS: ASPIRIN 81MG ENTERIC TABLET PO SCH (09:44)
[2021-10-02] MEDS: QUEtiapine FUMARATE 50MG TAB PO SCH (09:44)
[2021-10-02] MEDS: QUEtiapine FUMARATE 100 MG TAB PO SCH (18:01)
[2021-10-02] MEDS: MIRTAZAPINE 15 MG TAB PO SCH (20:52)
[2021-10-03 06:00] VITALS: BP 129/61
[2021-10-03] MEDS: LEVOTHYROXINE 75MCG TABLET (0.075MG) PO SCH (06:06)
[2021-10-03] MEDS: PANTOPRAZOLE 20 MG TAB PO SCH (09:53)
[2021-10-03] MEDS: DOCUSATE SODIUM 100MG CAPSULE PO SCH ×2 (09:53→20:53)
[2021-10-03] MEDS: ASPIRIN 81MG ENTERIC TABLET PO SCH (09:53)
[2021-10-03] MEDS: QUEtiapine FUMARATE 50MG TAB PO SCH (09:53)
[2021-10-03] MEDS: ENOXAPARIN 40MG/0.4ML SYRINGE (J1650 PER 10MG) SC SCH (09:53)
[2021-10-03] MEDS: QUEtiapine FUMARATE 100 MG TAB PO SCH (18:21)
[2021-10-03] MEDS: MIRTAZAPINE 15 MG TAB PO SCH (20:53)
[2021-10-04] MEDS: OLANZapine INTRAMUSCULAR 10MG VIAL IM PRN (01:49)
[2021-10-04 05:40] VITALS: BP 122/58
[2021-10-04] MEDS: QUEtiapine FUMARATE 50MG TAB PO SCH (09:17)
[2021-10-04] MEDS: DOCUSATE SODIUM 100MG CAPSULE PO SCH ×2 (09:17→20:52)
[2021-10-04] MEDS: PANTOPRAZOLE 20 MG TAB PO SCH (09:17)
[2021-10-04] MEDS: ASPIRIN 81MG ENTERIC TABLET PO SCH (09:17)
[2021-10-04] MEDS: LEVOTHYROXINE 75MCG TABLET (0.075MG) PO SCH (09:18)
[2021-10-04] MEDS: ENOXAPARIN 40MG/0.4ML SYRINGE (J1650 PER 10MG) SC SCH (09:23)
[2021-10-04] MEDS: QUEtiapine FUMARATE 100 MG TAB PO SCH (17:50)
[2021-10-04] MEDS: MIRTAZAPINE 15 MG TAB PO SCH (21:20)
[2021-10-05] MEDS: LEVOTHYROXINE 75MCG TABLET (0.075MG) PO SCH (05:24)
[2021-10-05] MEDS: PANTOPRAZOLE 20 MG TAB PO SCH (09:13)
[2021-10-05] MEDS: QUEtiapine FUMARATE 50MG TAB PO SCH (09:13)
[2021-10-05] MEDS: DOCUSATE SODIUM 100MG CAPSULE PO SCH ×2 (09:13→19:51)
[2021-10-05] MEDS: ASPIRIN 81MG ENTERIC TABLET PO SCH (09:13)
[2021-10-05] MEDS: ENOXAPARIN 40MG/0.4ML SYRINGE (J1650 PER 10MG) SC SCH (09:14)
[2021-10-05] MEDS: QUEtiapine FUMARATE 100 MG TAB PO SCH (17:20)
[2021-10-05] MEDS: MIRTAZAPINE 15 MG TAB PO SCH (19:51)
[2021-10-06] MEDS: LEVOTHYROXINE 75MCG TABLET (0.075MG) PO SCH (06:00)
[2021-10-06 06:27] VITALS: BP 102/56
[2021-10-06] MEDS: ENOXAPARIN 40MG/0.4ML SYRINGE (J1650 PER 10MG) SC SCH (08:52)
[2021-10-06] MEDS: ASPIRIN 81MG ENTERIC TABLET PO SCH (08:53)
[2021-10-06] MEDS: PANTOPRAZOLE 20 MG TAB PO SCH (08:53)
[2021-10-06] MEDS: QUEtiapine FUMARATE 50MG TAB PO SCH (08:53)
[2021-10-06] MEDS: DOCUSATE SODIUM 100MG CAPSULE PO SCH ×2 (08:53→21:00)
[2021-10-06] MEDS: QUEtiapine FUMARATE 100 MG TAB PO SCH (18:41)
[2021-10-06] MEDS: MIRTAZAPINE 15 MG TAB PO SCH (21:00)
[2021-10-07 06:08] VITALS: BP 102/51
[2021-10-07] MEDS: LEVOTHYROXINE 75MCG TABLET (0.075MG) PO SCH (06:08)
[2021-10-07] MEDS: ASPIRIN 81MG ENTERIC TABLET PO SCH (08:03)
[2021-10-07] MEDS: QUEtiapine FUMARATE 50MG TAB PO SCH (08:03)
[2021-10-07] MEDS: PANTOPRAZOLE 20 MG TAB PO SCH (08:03)
[2021-10-07] MEDS: DOCUSATE SODIUM 100MG CAPSULE PO SCH ×2 (08:03→22:08)
[2021-10-07] MEDS: ENOXAPARIN 40MG/0.4ML SYRINGE (J1650 PER 10MG) SC SCH (08:04)
[2021-10-07] MEDS: QUEtiapine FUMARATE 100 MG TAB PO SCH (18:19)
[2021-10-07] MEDS: MIRTAZAPINE 15 MG TAB PO SCH (22:08)
[2021-10-08 06:00] VITALS: BP 115/55
[2021-10-08] MEDS: LEVOTHYROXINE 75MCG TABLET (0.075MG) PO SCH ×2 (06:00→06:25)
[2021-10-08] MEDS: QUEtiapine FUMARATE 50MG TAB PO SCH (09:48)
[2021-10-08] MEDS: ASPIRIN 81MG ENTERIC TABLET PO SCH (09:48)
[2021-10-08] MEDS: PANTOPRAZOLE 20 MG TAB PO SCH (09:48)
[2021-10-08] MEDS: DOCUSATE SODIUM 100MG CAPSULE PO SCH ×2 (09:48→23:01)
[2021-10-08] MEDS: ENOXAPARIN 40MG/0.4ML SYRINGE (J1650 PER 10MG) SC SCH (09:48)
[2021-10-08] MEDS: QUEtiapine FUMARATE 100 MG TAB PO SCH (18:01)
[2021-10-08] MEDS: MIRTAZAPINE 15 MG TAB PO SCH (23:02)
[2021-10-09] MEDS: OLANZapine INTRAMUSCULAR 10MG VIAL IM PRN (00:04)
[2021-10-09] MEDS: LEVOTHYROXINE 75MCG TABLET (0.075MG) PO SCH (05:35)
[2021-10-09 06:00] VITALS: BP 127/64
[2021-10-09] MEDS: ENOXAPARIN 40MG/0.4ML SYRINGE (J1650 PER 10MG) SC SCH (08:35)
[2021-10-09] MEDS: DOCUSATE SODIUM 100MG CAPSULE PO SCH ×3 (08:35→23:01)
[2021-10-09] MEDS: QUEtiapine FUMARATE 50MG TAB PO SCH (08:35)
[2021-10-09] MEDS: ASPIRIN 81MG ENTERIC TABLET PO SCH (08:35)
[2021-10-09] MEDS: PANTOPRAZOLE 20 MG TAB PO SCH (08:35)
[2021-10-09] MEDS: QUEtiapine FUMARATE 100 MG TAB PO SCH (17:36)
[2021-10-09] MEDS: MIRTAZAPINE 15 MG TAB PO SCH ×2 (21:00→23:02)
[2021-10-10] MEDS: LEVOTHYROXINE 75MCG TABLET (0.075MG) PO SCH (05:39)
[2021-10-10 06:00] VITALS: BP 122/54
[2021-10-10] MEDS: ACETAMINOPHEN TAB 650MG DOSE (2X325MG) PO PRN (08:29)
[2021-10-10] MEDS: ASPIRIN 81MG ENTERIC TABLET PO SCH (08:29)
[2021-10-10] MEDS: DOCUSATE SODIUM 100MG CAPSULE PO SCH ×2 (08:29→21:06)
[2021-10-10] MEDS: ENOXAPARIN 40MG/0.4ML SYRINGE (J1650 PER 10MG) SC SCH (08:29)
[2021-10-10] MEDS: QUEtiapine FUMARATE 50MG TAB PO SCH (08:29)
[2021-10-10] MEDS: PANTOPRAZOLE 20 MG TAB PO SCH (08:29)
[2021-10-10] MEDS: QUEtiapine FUMARATE 100 MG TAB PO SCH (17:13)
[2021-10-10] MEDS: MIRTAZAPINE 15 MG TAB PO SCH (21:06)
[2021-10-11] MEDS: LEVOTHYROXINE 75MCG TABLET (0.075MG) PO SCH (06:00)
[2021-10-11] MEDS: DOCUSATE SODIUM 100MG CAPSULE PO SCH ×2 (10:23→22:19)
[2021-10-11] MEDS: QUEtiapine FUMARATE 50MG TAB PO SCH (10:23)
[2021-10-11] MEDS: ASPIRIN 81MG ENTERIC TABLET PO SCH (10:23)
[2021-10-11] MEDS: PANTOPRAZOLE 20 MG TAB PO SCH (10:35)
[2021-10-11] MEDS: ENOXAPARIN 40MG/0.4ML SYRINGE (J1650 PER 10MG) SC SCH (10:35)
[2021-10-11] MEDS: QUEtiapine FUMARATE 100 MG TAB PO SCH (19:12)
[2021-10-11] MEDS: MIRTAZAPINE 15 MG TAB PO SCH (22:20)
[2021-10-12] MEDS: LEVOTHYROXINE 75MCG TABLET (0.075MG) PO SCH (06:00)
[2021-10-12] MEDS: MIRALAX *UNIT DOSE* 17GM PACKET PO PRN (12:47)
[2021-10-12] MEDS: DOCUSATE SODIUM 100MG CAPSULE PO SCH ×2 (12:48→22:23)
[2021-10-12] MEDS: ASPIRIN 81MG ENTERIC TABLET PO SCH (12:49)
[2021-10-12] MEDS: QUEtiapine FUMARATE 50MG TAB PO SCH (12:49)
[2021-10-12] MEDS: PANTOPRAZOLE 20 MG TAB PO SCH (12:49)
[2021-10-12] MEDS: ENOXAPARIN 40MG/0.4ML SYRINGE (J1650 PER 10MG) SC SCH (13:49)
[2021-10-12] MEDS: QUEtiapine FUMARATE 100 MG TAB PO SCH (17:43)
[2021-10-12] MEDS: MIRTAZAPINE 15 MG TAB PO SCH (22:22)
[2021-10-13 06:00] VITALS: BP 131/56
[2021-10-13] MEDS: LEVOTHYROXINE 75MCG TABLET (0.075MG) PO SCH (06:47)
[2021-10-13] MEDS: DOCUSATE SODIUM 100MG CAPSULE PO SCH ×3 (09:00→21:00)
[2021-10-13] MEDS: PANTOPRAZOLE 20 MG TAB PO SCH ×2 (09:00→09:23)
[2021-10-13] MEDS: ENOXAPARIN 40MG/0.4ML SYRINGE (J1650 PER 10MG) SC SCH ×2 (09:00→09:23)
[2021-10-13] MEDS: ASPIRIN 81MG ENTERIC TABLET PO SCH ×2 (09:00→09:23)
[2021-10-13] MEDS: QUEtiapine FUMARATE 50MG TAB PO SCH (09:23)
[2021-10-13] MEDS: QUEtiapine FUMARATE 100 MG TAB PO SCH (17:00)
[2021-10-13] MEDS: MIRTAZAPINE 15 MG TAB PO SCH (22:18)
[2021-10-14] MEDS: LEVOTHYROXINE 75MCG TABLET (0.075MG) PO SCH (06:13)
[2021-10-14] MEDS: ENOXAPARIN 40MG/0.4ML SYRINGE (J1650 PER 10MG) SC SCH ×2 (09:00→10:47)
[2021-10-14] MEDS: ASPIRIN 81MG ENTERIC TABLET PO SCH (10:47)
[2021-10-14] MEDS: DOCUSATE SODIUM 100MG CAPSULE PO SCH ×2 (10:47→21:00)
[2021-10-14] MEDS: QUEtiapine FUMARATE 50MG TAB PO SCH (10:48)
[2021-10-14] MEDS: PANTOPRAZOLE 20 MG TAB PO SCH (10:48)
[2021-10-14] MEDS: QUEtiapine FUMARATE 100 MG TAB PO SCH (17:42)
[2021-10-14] MEDS: MIRTAZAPINE 15 MG TAB PO SCH (19:51)
[2021-10-14] MEDS: ACETAMINOPHEN TAB 650MG DOSE (2X325MG) PO PRN (19:53)
[2021-10-15] MEDS: LEVOTHYROXINE 75MCG TABLET (0.075MG) PO SCH (06:00)
[2021-10-15 06:28] VITALS: BP 123/60
[2021-10-15] MEDS: ENOXAPARIN 40MG/0.4ML SYRINGE (J1650 PER 10MG) SC SCH (09:00)
[2021-10-15] MEDS: QUEtiapine FUMARATE 50MG TAB PO SCH (09:30)
[2021-10-15] MEDS: ASPIRIN 81MG ENTERIC TABLET PO SCH (09:30)
[2021-10-15] MEDS: PANTOPRAZOLE 20 MG TAB PO SCH (09:30)
[2021-10-15] MEDS: QUEtiapine FUMARATE 100 MG TAB PO SCH (18:46)
[2021-10-15] MEDS: MIRTAZAPINE 15 MG TAB PO SCH (19:50)
[2021-10-16] MEDS: MAALOX 30 ML SUSP *UDC PO PRN (01:57)
[2021-10-16 05:08] VITALS: BP 118/57
[2021-10-16] MEDS: LEVOTHYROXINE 75MCG TABLET (0.075MG) PO SCH (05:44)
[2021-10-16] MEDS: ENOXAPARIN 40MG/0.4ML SYRINGE (J1650 PER 10MG) SC SCH ×2 (09:00→09:48)
[2021-10-16] MEDS: ASPIRIN 81MG ENTERIC TABLET PO SCH (09:48)
[2021-10-16] MEDS: QUEtiapine FUMARATE 50MG TAB PO SCH (09:48)
[2021-10-16] MEDS: PANTOPRAZOLE 20 MG TAB PO SCH (09:48)
[2021-10-16] MEDS: QUEtiapine FUMARATE 100 MG TAB PO SCH (18:00)
[2021-10-16] MEDS: MIRTAZAPINE 15 MG TAB PO SCH (20:14)
[2021-10-16] MEDS: OLANZapine INTRAMUSCULAR 10MG VIAL IM PRN (20:14)
[2021-10-17] MEDS: LEVOTHYROXINE 75MCG TABLET (0.075MG) PO SCH (05:08)
[2021-10-17 06:00] VITALS: BP 122/58
[2021-10-17] MEDS: QUEtiapine FUMARATE 50MG TAB PO SCH (10:40)
[2021-10-17] MEDS: ASPIRIN 81MG ENTERIC TABLET PO SCH (10:40)
[2021-10-17] MEDS: PANTOPRAZOLE 20 MG TAB PO SCH (10:40)
[2021-10-17] MEDS: ENOXAPARIN 40MG/0.4ML SYRINGE (J1650 PER 10MG) SC SCH (10:42)
[2021-10-17] MEDS: QUEtiapine FUMARATE 100 MG TAB PO SCH (17:16)
[2021-10-17] MEDS: MIRTAZAPINE 15 MG TAB PO SCH (21:00)
[2021-10-18] MEDS: OLANZapine INTRAMUSCULAR 10MG VIAL IM PRN (00:15)
[2021-10-18 06:00] VITALS: BP 84/56
[2021-10-18] MEDS: LEVOTHYROXINE 75MCG TABLET (0.075MG) PO SCH (06:13)
[2021-10-18 07:46] VITALS: BP 127/90
[2021-10-18] MEDS: ASPIRIN 81MG ENTERIC TABLET PO SCH (09:06)
[2021-10-18] MEDS: PANTOPRAZOLE 20 MG TAB PO SCH (09:06)
[2021-10-18] MEDS: QUEtiapine FUMARATE 50MG TAB PO SCH (09:06)
[2021-10-18] MEDS: ENOXAPARIN 40MG/0.4ML SYRINGE (J1650 PER 10MG) SC SCH (09:07)
[2021-10-18] MEDS: QUEtiapine FUMARATE 100 MG TAB PO SCH (18:12)
[2021-10-18] MEDS: MIRTAZAPINE 15 MG TAB PO SCH (19:46)
[2021-10-19] MEDS: LEVOTHYROXINE 75MCG TABLET (0.075MG) PO SCH (06:00)
[2021-10-19] MEDS: QUEtiapine FUMARATE 50MG TAB PO SCH (08:06)
[2021-10-19] MEDS: PANTOPRAZOLE 20 MG TAB PO SCH (08:06)
[2021-10-19] MEDS: ASPIRIN 81MG ENTERIC TABLET PO SCH (08:06)
[2021-10-19] MEDS: ENOXAPARIN 40MG/0.4ML SYRINGE (J1650 PER 10MG) SC SCH (08:06)
[2021-10-19] MEDS: QUEtiapine FUMARATE 100 MG TAB PO SCH (18:45)
[2021-10-19] MEDS: MIRTAZAPINE 15 MG TAB PO SCH (21:41)
[2021-10-20] MEDS: OLANZapine INTRAMUSCULAR 10MG VIAL IM PRN (05:24)
[2021-10-20] MEDS: LEVOTHYROXINE 75MCG TABLET (0.075MG) PO SCH (05:48)
[2021-10-20] MEDS: PANTOPRAZOLE 20 MG TAB PO SCH (09:49)
[2021-10-20] MEDS: QUEtiapine FUMARATE 50MG TAB PO SCH (09:49)
[2021-10-20] MEDS: ASPIRIN 81MG ENTERIC TABLET PO SCH (09:49)
[2021-10-20] MEDS: ENOXAPARIN 40MG/0.4ML SYRINGE (J1650 PER 10MG) SC SCH (09:50)
[2021-10-20] MEDS: QUEtiapine FUMARATE 100 MG TAB PO SCH (18:16)
[2021-10-20] MEDS: MIRTAZAPINE 15 MG TAB PO SCH (21:22)
[2021-10-20] MEDS: RAMELTEON 8 MG TAB (ROZEREM) PO PRN (21:22)
[2021-10-21] MEDS: LEVOTHYROXINE 75MCG TABLET (0.075MG) PO SCH (06:06)
[2021-10-21 06:13] VITALS: BP 104/59
[2021-10-21] MEDS: QUEtiapine FUMARATE 50MG TAB PO SCH (08:21)
[2021-10-21] MEDS: ASPIRIN 81MG ENTERIC TABLET PO SCH (08:21)
[2021-10-21] MEDS: ENOXAPARIN 40MG/0.4ML SYRINGE (J1650 PER 10MG) SC SCH (08:22)
[2021-10-21] MEDS: PANTOPRAZOLE 20 MG TAB PO SCH (08:22)
[2021-10-21] MEDS: QUEtiapine FUMARATE 100 MG TAB PO SCH (17:19)
[2021-10-21] MEDS: MIRTAZAPINE 15 MG TAB PO SCH (20:25)
[2021-10-21] MEDS: RAMELTEON 8 MG TAB (ROZEREM) PO PRN (20:25)
[2021-10-22] MEDS: OLANZapine INTRAMUSCULAR 10MG VIAL IM PRN (04:55)
[2021-10-22] MEDS: LEVOTHYROXINE 75MCG TABLET (0.075MG) PO SCH (04:57)
[2021-10-22 06:00] VITALS: BP 113/59
[2021-10-22] MEDS: QUEtiapine FUMARATE 50MG TAB PO SCH ×2 (09:00→11:35)
[2021-10-22] MEDS: ENOXAPARIN 40MG/0.4ML SYRINGE (J1650 PER 10MG) SC SCH (09:00)
[2021-10-22] MEDS: ASPIRIN 81MG ENTERIC TABLET PO SCH ×2 (09:00→11:35)
[2021-10-22] MEDS: PANTOPRAZOLE 20 MG TAB PO SCH ×2 (09:00→11:35)
[2021-10-22] MEDS: QUEtiapine FUMARATE 100 MG TAB PO SCH ×2 (17:26→18:00)
[2021-10-22] MEDS: MIRTAZAPINE 15 MG TAB PO SCH (21:25)
[2021-10-23] MEDS: LEVOTHYROXINE 75MCG TABLET (0.075MG) PO SCH (05:14)
[2021-10-23 05:53] VITALS: BP 101/60
[2021-10-23] MEDS: QUEtiapine FUMARATE 50MG TAB PO SCH (12:32)
[2021-10-23] MEDS: ENOXAPARIN 40MG/0.4ML SYRINGE (J1650 PER 10MG) SC SCH (12:33)
[2021-10-23] MEDS: ASPIRIN 81MG ENTERIC TABLET PO SCH (12:33)
[2021-10-23] MEDS: PANTOPRAZOLE 20 MG TAB PO SCH (12:33)
[2021-10-23] MEDS: QUEtiapine FUMARATE 100 MG TAB PO SCH (18:00)
[2021-10-23] MEDS: MIRTAZAPINE 15 MG TAB PO SCH (23:07)
[2021-10-23] MEDS: RAMELTEON 8 MG TAB (ROZEREM) PO PRN (23:07)
[2021-10-23] MEDS: SENNA 8.6 MG TAB (SENOKOT) PO PRN (23:08)
[2021-10-24] MEDS: LEVOTHYROXINE 75MCG TABLET (0.075MG) PO SCH (05:39)
[2021-10-24 06:00] VITALS: BP 127/59
[2021-10-24] MEDS: ENOXAPARIN 40MG/0.4ML SYRINGE (J1650 PER 10MG) SC SCH (09:00)
[2021-10-24] MEDS: QUEtiapine FUMARATE 50MG TAB PO SCH (09:56)
[2021-10-24] MEDS: ASPIRIN 81MG ENTERIC TABLET PO SCH (09:56)
[2021-10-24] MEDS: PANTOPRAZOLE 20 MG TAB PO SCH (09:56)
[2021-10-24] MEDS: QUEtiapine FUMARATE 100 MG TAB PO SCH ×2 (18:00→18:31)
[2021-10-24] MEDS: SENNA 8.6 MG TAB (SENOKOT) PO PRN (21:37)
[2021-10-24] MEDS: RAMELTEON 8 MG TAB (ROZEREM) PO PRN (21:37)
[2021-10-24] MEDS: MIRTAZAPINE 15 MG TAB PO SCH (21:37)
[2021-10-25] MEDS: LEVOTHYROXINE 75MCG TABLET (0.075MG) PO SCH (05:00)
[2021-10-25 06:00] VITALS: BP 130/88
[2021-10-25] MEDS: PANTOPRAZOLE 20 MG TAB PO SCH (08:55)
[2021-10-25] MEDS: ENOXAPARIN 40MG/0.4ML SYRINGE (J1650 PER 10MG) SC SCH (08:55)
[2021-10-25] MEDS: ASPIRIN 81MG ENTERIC TABLET PO SCH (08:55)
[2021-10-25] MEDS: QUEtiapine FUMARATE 50MG TAB PO SCH (08:55)
[2021-10-25] MEDS: QUEtiapine FUMARATE 100 MG TAB PO SCH (18:18)
[2021-10-25] MEDS: MIRTAZAPINE 15 MG TAB PO SCH (20:34)
[2021-10-26] MEDS: LEVOTHYROXINE 75MCG TABLET (0.075MG) PO SCH (05:41)
[2021-10-26 06:00] VITALS: BP 133/76
[2021-10-26] MEDS: ENOXAPARIN 40MG/0.4ML SYRINGE (J1650 PER 10MG) SC SCH (09:00)
[2021-10-26] MEDS: QUEtiapine FUMARATE 50MG TAB PO SCH (09:51)
[2021-10-26] MEDS: ASPIRIN 81MG ENTERIC TABLET PO SCH (09:51)
[2021-10-26] MEDS: PANTOPRAZOLE 20 MG TAB PO SCH (09:51)
[2021-10-26] MEDS: QUEtiapine FUMARATE 100 MG TAB PO SCH (18:32)
[2021-10-26] MEDS: MIRTAZAPINE 15 MG TAB PO SCH (21:02)
[2021-10-27 05:10] VITALS: BP 121/55
[2021-10-27] MEDS: LEVOTHYROXINE 75MCG TABLET (0.075MG) PO SCH (06:00)
[2021-10-27] MEDS: ASPIRIN 81MG ENTERIC TABLET PO SCH (09:43)
[2021-10-27] MEDS: PANTOPRAZOLE 20 MG TAB PO SCH (09:43)
[2021-10-27] MEDS: QUEtiapine FUMARATE 50MG TAB PO SCH (09:43)
[2021-10-27] MEDS: ENOXAPARIN 40MG/0.4ML SYRINGE (J1650 PER 10MG) SC SCH (09:44)
[2021-10-27] MEDS: QUEtiapine FUMARATE 100 MG TAB PO SCH (18:21)
[2021-10-28] MEDS: MIRTAZAPINE 15 MG TAB PO SCH ×2 (00:05→19:26)
[2021-10-28] MEDS: SENNA 8.6 MG TAB (SENOKOT) PO PRN (00:05)
[2021-10-28] MEDS: RAMELTEON 8 MG TAB (ROZEREM) PO PRN (00:05)
[2021-10-28 06:00] VITALS: BP 126/63
[2021-10-28] MEDS: LEVOTHYROXINE 75MCG TABLET (0.075MG) PO SCH (06:55)
[2021-10-28] MEDS: ENOXAPARIN 40MG/0.4ML SYRINGE (J1650 PER 10MG) SC SCH (09:34)
[2021-10-28] MEDS: PANTOPRAZOLE 20 MG TAB PO SCH (09:35)
[2021-10-28] MEDS: ASPIRIN 81MG ENTERIC TABLET PO SCH (09:35)
[2021-10-28] MEDS: QUEtiapine FUMARATE 50MG TAB PO SCH (09:35)
[2021-10-28] MEDS: QUEtiapine FUMARATE 100 MG TAB PO SCH (18:00)
[2021-10-28] MEDS: DOCUSATE SODIUM 100MG CAPSULE PO SCH (21:50)
[2021-10-28] MEDS ORDERED: TAMSULOSIN 0.4 MG CAP PO ONE (23:55)
[2021-10-29] MEDS: LEVOTHYROXINE 75MCG TABLET (0.075MG) PO SCH (05:34)
[2021-10-29 06:00] VITALS: BP 113/48
[2021-10-29] MEDS: PANTOPRAZOLE 20 MG TAB PO SCH (09:34)
[2021-10-29] MEDS: ASPIRIN 81MG ENTERIC TABLET PO SCH (09:34)
[2021-10-29] MEDS: MIRALAX *UNIT DOSE* 17GM PACKET PO PRN (09:34)
[2021-10-29] MEDS: DOCUSATE SODIUM 100MG CAPSULE PO SCH ×2 (09:34→19:27)
[2021-10-29] MEDS: QUEtiapine FUMARATE 50MG TAB PO SCH (09:34)
[2021-10-29] MEDS: ENOXAPARIN 40MG/0.4ML SYRINGE (J1650 PER 10MG) SC SCH (09:35)
[2021-10-29] MEDS: QUEtiapine FUMARATE 100 MG TAB PO SCH (17:12)
[2021-10-29] MEDS: SENNA 8.6 MG TAB (SENOKOT) PO PRN (19:27)
[2021-10-29] MEDS: MIRTAZAPINE 15 MG TAB PO SCH (19:27)
[2021-10-30 06:00] VITALS: BP 102/52
[2021-10-30] MEDS: LEVOTHYROXINE 75MCG TABLET (0.075MG) PO SCH (06:00)
[2021-10-30] MEDS: ENOXAPARIN 40MG/0.4ML SYRINGE (J1650 PER 10MG) SC SCH ×2 (09:00→10:48)
[2021-10-30] MEDS: ASPIRIN 81 MG CHEW TABLET PO SCH (09:00)
[2021-10-30] MEDS ORDERED: CALCIUM CARBONATE 500 MG CHEW U/D PO PRN (10:05)
[2021-10-30] MEDS: MIRALAX *UNIT DOSE* 17GM PACKET PO SCH (10:47)
[2021-10-30] MEDS: QUEtiapine FUMARATE 50MG TAB PO SCH (10:49)
[2021-10-30] MEDS: QUEtiapine FUMARATE 100 MG TAB PO SCH (18:03)
[2021-10-30] MEDS: MIRTAZAPINE 15 MG TAB PO SCH (22:05)
[2021-10-31] MEDS: LEVOTHYROXINE 75MCG TABLET (0.075MG) PO SCH (06:00)
[2021-10-31] MEDS: QUEtiapine FUMARATE 50MG TAB PO SCH (07:56)
[2021-10-31] MEDS: MIRALAX *UNIT DOSE* 17GM PACKET PO SCH (07:56)
[2021-10-31] MEDS: ASPIRIN 81 MG CHEW TABLET PO SCH (07:56)
[2021-10-31] MEDS: ENOXAPARIN 40MG/0.4ML SYRINGE (J1650 PER 10MG) SC SCH (07:57)
[2021-10-31] MEDS: QUEtiapine FUMARATE 100 MG TAB PO SCH (18:07)
[2021-10-31] MEDS: MIRTAZAPINE 15 MG TAB PO SCH (21:31)
[2021-11-01 06:00] VITALS: BP 140/71
[2021-11-01] MEDS: LEVOTHYROXINE 75MCG TABLET (0.075MG) PO SCH (07:03)
[2021-11-01] MEDS: ASPIRIN 81 MG CHEW TABLET PO SCH (12:00)
[2021-11-01] MEDS: QUEtiapine FUMARATE 50MG TAB PO SCH (12:00)
[2021-11-01] MEDS: ENOXAPARIN 40MG/0.4ML SYRINGE (J1650 PER 10MG) SC SCH ×2 (12:00→19:14)
[2021-11-01] MEDS: MIRALAX *UNIT DOSE* 17GM PACKET PO SCH (12:00)
[2021-11-01] MEDS: QUEtiapine FUMARATE 100 MG TAB PO SCH (18:00)
[2021-11-01] MEDS: MIRTAZAPINE 15 MG TAB PO SCH (22:52)
[2021-11-02] MEDS: LEVOTHYROXINE 75MCG TABLET (0.075MG) PO SCH (05:37)
[2021-11-02 06:00] VITALS: BP 151/68
[2021-11-02] MEDS: ASPIRIN 81 MG CHEW TABLET PO SCH (10:09)
[2021-11-02] MEDS: MIRALAX *UNIT DOSE* 17GM PACKET PO SCH (10:09)
[2021-11-02] MEDS: QUEtiapine FUMARATE 50MG TAB PO SCH (10:09)
[2021-11-02] MEDS: ENOXAPARIN 40MG/0.4ML SYRINGE (J1650 PER 10MG) SC SCH (10:13)
[2021-11-02] MEDS: QUEtiapine FUMARATE 100 MG TAB PO SCH (17:49)
[2021-11-02] MEDS: MIRTAZAPINE 15 MG TAB PO SCH (21:26)
[2021-11-03] MEDS: LEVOTHYROXINE 75MCG TABLET (0.075MG) PO SCH (06:00)
[2021-11-03] MEDS: ENOXAPARIN 40MG/0.4ML SYRINGE (J1650 PER 10MG) SC SCH (09:00)
[2021-11-03] MEDS: ASPIRIN 81 MG CHEW TABLET PO SCH (10:28)
[2021-11-03] MEDS: QUEtiapine FUMARATE 50MG TAB PO SCH (10:28)
[2021-11-03] MEDS: MIRALAX *UNIT DOSE* 17GM PACKET PO SCH (10:28)
[2021-11-03] MEDS: QUEtiapine FUMARATE 100 MG TAB PO SCH (18:25)
[2021-11-03] MEDS: MIRTAZAPINE 15 MG TAB PO SCH (20:08)
[2021-11-04] MEDS: LEVOTHYROXINE 75MCG TABLET (0.075MG) PO SCH (05:03)
[2021-11-04] MEDS: QUEtiapine FUMARATE 50MG TAB PO SCH (09:56)
[2021-11-04] MEDS: ASPIRIN 81 MG CHEW TABLET PO SCH (09:57)
[2021-11-04] MEDS: MIRALAX *UNIT DOSE* 17GM PACKET PO SCH (09:57)
[2021-11-04] MEDS: ENOXAPARIN 40MG/0.4ML SYRINGE (J1650 PER 10MG) SC SCH (09:57)
[2021-11-04] MEDS: QUEtiapine FUMARATE 100 MG TAB PO SCH (18:18)
[2021-11-04] MEDS: MIRTAZAPINE 15 MG TAB PO SCH ×2 (20:15→21:19)
[2021-11-04] MEDS: SENNA 8.6 MG TAB (SENOKOT) PO PRN (21:18)
[2021-11-04] MEDS: RAMELTEON 8 MG TAB (ROZEREM) PO PRN (21:18)
[2021-11-05] MEDS: LEVOTHYROXINE 75MCG TABLET (0.075MG) PO SCH (05:33)
[2021-11-05 05:47] VITALS: BP 127/62
[2021-11-05 09:21] LABS: BASO % 0.4 % (0.0-1.0); EOS # 0.1 10^3/uL (0.0-0.5); EOS % 0.7 % (0.0-3.0); HEMATOCRIT 40.5 % (36.0-47.0); HEMOGLOBIN 13.4 g/dl (12.0-15.5); LYMPH # 1.7 10^3/uL (1.5-5.0); LYMPH % 24.1 % (24.0-44.0); MEAN CORPUSCULAR HEMOGLOBIN 30.3 pg (27.0-33.0); MEAN CORPUSCULAR HGB CONC 33.1 g/dl (32.0-36.5); MEAN CORPUSCULAR VOLUME 91.6 fl (80.0-96.0); MONO % 13.5 % (2.0-8.0); NEUTROPHILS # 4.3 10^3/uL (1.5-8.5); NEUTROPHILS % 60.9 % (36.0-66.0); PLATELET COUNT, AUTOMATED 303 10^3/uL (150-450); RED BLOOD COUNT 4.42 10^6/uL (4.00-5.40); WHITE BLOOD COUNT 7.1 10^3/uL (4.0-10.0)
[2021-11-05 09:40] LABS: BLOOD UREA NITROGEN 15 MG/DL (7-18); CALCIUM LEVEL 9.5 MG/DL (8.8-10.2); CARBON DIOXIDE LEVEL 27 MEQ/L (21-32); CHLORIDE LEVEL 104 MEQ/L (98-107); CREATININE FOR GFR 0.71 MG/DL (0.55-1.30); GLOMERULAR FILTRATION RATE > 60.0 (>39); GLUCOSE, FASTING 93 MG/DL (70-100); POTASSIUM SERUM 4.5 MEQ/L (3.5-5.1); SODIUM LEVEL 136 MEQ/L (136-145)
[2021-11-05] MEDS: ASPIRIN 81 MG CHEW TABLET PO SCH (12:00)
[2021-11-05] MEDS: QUEtiapine FUMARATE 50MG TAB PO SCH (12:00)
[2021-11-05] MEDS: ENOXAPARIN 40MG/0.4ML SYRINGE (J1650 PER 10MG) SC SCH (12:01)
[2021-11-05] MEDS: SENNA 8.6 MG TAB (SENOKOT) PO PRN (12:01)
[2021-11-05] MEDS: MIRALAX *UNIT DOSE* 17GM PACKET PO SCH (12:01)
[2021-11-05] MEDS: QUEtiapine FUMARATE 100 MG TAB PO SCH (18:00)
[2021-11-05] MEDS: MIRTAZAPINE 15 MG TAB PO SCH (20:19)
[2021-11-05] MEDS: RAMELTEON 8 MG TAB (ROZEREM) PO PRN (20:19)
[2021-11-06 06:00] VITALS: BP 124/66
[2021-11-06] MEDS: LEVOTHYROXINE 75MCG TABLET (0.075MG) PO SCH (06:00)
[2021-11-06] MEDS: MIRALAX *UNIT DOSE* 17GM PACKET PO SCH (10:15)
[2021-11-06] MEDS: QUEtiapine FUMARATE 50MG TAB PO SCH (10:15)
[2021-11-06] MEDS: ENOXAPARIN 40MG/0.4ML SYRINGE (J1650 PER 10MG) SC SCH (10:16)
[2021-11-06] MEDS: ASPIRIN 81 MG CHEW TABLET PO SCH (10:16)
[2021-11-06] MEDS: QUEtiapine FUMARATE 100 MG TAB PO SCH (18:23)
[2021-11-06] MEDS: MIRTAZAPINE 15 MG TAB PO SCH (22:15)
[2021-11-07 05:16] LABS: BACTERIA, URINE LARGE AMOUNT; CALCIUM OXALATE CRYSTALS,URINE SMALL AMOUNT /hpf; HYALINE CAST, URINE NONE SEEN /lpf (0-1); RBC, URINE NONE SEEN /hpf (0-3); SQUAMOUS EPITHELIAL CELL URINE SMALL AMOUNT /hpf (SMALL AMT)
[2021-11-07] MEDS: LEVOTHYROXINE 75MCG TABLET (0.075MG) PO SCH (05:26)
[2021-11-07 06:00] VITALS: BP 126/56
[2021-11-07 06:19] VITALS: BP 126/56
[2021-11-07] MEDS: MIRALAX *UNIT DOSE* 17GM PACKET PO SCH ×2 (09:00→09:34)
[2021-11-07] MEDS: ENOXAPARIN 40MG/0.4ML SYRINGE (J1650 PER 10MG) SC SCH ×2 (09:00→09:35)
[2021-11-07] MEDS: DOCUSATE SODIUM 100MG CAPSULE PO SCH ×4 (09:00→23:16)
[2021-11-07] MEDS: ASPIRIN 81 MG CHEW TABLET PO SCH ×2 (09:00→09:34)
[2021-11-07] MEDS: QUEtiapine FUMARATE 50MG TAB PO SCH ×2 (09:00→09:34)
[2021-11-07] MEDS: QUEtiapine FUMARATE 100 MG TAB PO SCH (17:55)
[2021-11-07] MEDS ORDERED: CEPHALEXIN 500 MG CAP PO SCH (21:00)
[2021-11-07] MEDS: SENNA 8.6 MG TAB (SENOKOT) PO PRN (23:16)
[2021-11-07] MEDS: RAMELTEON 8 MG TAB (ROZEREM) PO PRN (23:16)
[2021-11-07] MEDS: MIRTAZAPINE 15 MG TAB PO SCH (23:16)
[2021-11-08] MEDS: LEVOTHYROXINE 75MCG TABLET (0.075MG) PO SCH (05:36)
[2021-11-08 06:24] LABS: BASO # 0.1 10^3/uL (0.0-0.2); BASO % 0.6 % (0.0-1.0); EOS % 0.4 % (0.0-3.0); HEMATOCRIT 41.8 % (36.0-47.0); LYMPH # 1.8 10^3/uL (1.5-5.0); LYMPH % 22.6 % (24.0-44.0); MEAN CORPUSCULAR HEMOGLOBIN 30.6 pg (27.0-33.0); MEAN CORPUSCULAR HGB CONC 33.5 g/dl (32.0-36.5); MEAN CORPUSCULAR VOLUME 91.5 fl (80.0-96.0); MONO # 1.2 10^3/uL (0.0-0.8); MONO % 15.5 % (2.0-8.0); NEUTROPHILS # 4.8 10^3/uL (1.5-8.5); NEUTROPHILS % 60.6 % (36.0-66.0); PLATELET COUNT, AUTOMATED 324 10^3/uL (150-450); RED BLOOD COUNT 4.57 10^6/uL (4.00-5.40); WHITE BLOOD COUNT 7.9 10^3/uL (4.0-10.0)
[2021-11-08 06:49] LABS: BLOOD UREA NITROGEN 21 MG/DL (7-18); CALCIUM LEVEL 9.2 MG/DL (8.8-10.2); CARBON DIOXIDE LEVEL 24 MEQ/L (21-32); CHLORIDE LEVEL 108 MEQ/L (98-107); CREATININE FOR GFR 0.85 MG/DL (0.55-1.30); GLOMERULAR FILTRATION RATE > 60.0 (>39); GLUCOSE, FASTING 78 MG/DL (70-100); POTASSIUM SERUM 3.9 MEQ/L (3.5-5.1); SODIUM LEVEL 140 MEQ/L (136-145)
[2021-11-08] MEDS: ENOXAPARIN 40MG/0.4ML SYRINGE (J1650 PER 10MG) SC SCH (09:00)
[2021-11-08] MEDS: DOCUSATE SODIUM 100MG CAPSULE PO SCH (09:00)
[2021-11-08] MEDS ORDERED: LACTOBACILLUS ACIDOPHILUS CAP (BACID) PO SCH (09:00)
[2021-11-08] MEDS: QUEtiapine FUMARATE 50MG TAB PO SCH (09:00)
[2021-11-08] MEDS ORDERED: FOSFOMYCIN TROMETHAMINE 3 GM POWDER PACKET (MONUROL) PO ONE (09:00)
[2021-11-08] MEDS: ASPIRIN 81 MG CHEW TABLET PO SCH (09:00)
[2021-11-08] MEDS: MIRALAX *UNIT DOSE* 17GM PACKET PO SCH (12:44)
[2021-11-08] MEDS: QUEtiapine FUMARATE 100 MG TAB PO SCH (19:02)
[2021-11-08] MEDS: MIRTAZAPINE 15 MG TAB PO SCH (21:21)
[2021-11-09 06:00] VITALS: BP 132/73
[2021-11-09] MEDS: LEVOTHYROXINE 75MCG TABLET (0.075MG) PO SCH (06:54)
[2021-11-09] MEDS: ASPIRIN 81 MG CHEW TABLET PO SCH (08:41)
[2021-11-09] MEDS: QUEtiapine FUMARATE 50MG TAB PO SCH (08:41)
[2021-11-09] MEDS: MIRALAX *UNIT DOSE* 17GM PACKET PO SCH (08:42)
[2021-11-09] MEDS: CEFDINIR 300 MG CAP (OMNICEF) PO SCH ×2 (08:42→21:49)
[2021-11-09] MEDS: ENOXAPARIN 40MG/0.4ML SYRINGE (J1650 PER 10MG) SC SCH (08:43)
[2021-11-09] MEDS: MIRTAZAPINE 15 MG TAB PO SCH (21:49)
[2021-11-10 06:00] VITALS: BP 149/88
[2021-11-10] MEDS: LEVOTHYROXINE 75MCG TABLET (0.075MG) PO SCH (06:18)
[2021-11-10] MEDS: QUEtiapine FUMARATE 50MG TAB PO SCH (10:00)
[2021-11-10] MEDS: CEFDINIR 300 MG CAP (OMNICEF) PO SCH ×2 (10:00→20:26)
[2021-11-10] MEDS: ENOXAPARIN 40MG/0.4ML SYRINGE (J1650 PER 10MG) SC SCH (10:00)
[2021-11-10] MEDS: MIRALAX *UNIT DOSE* 17GM PACKET PO SCH (10:00)
[2021-11-10] MEDS: ASPIRIN 81 MG CHEW TABLET PO SCH (10:00)
[2021-11-10] MEDS: QUEtiapine FUMARATE 100 MG TAB PO SCH (18:55)
[2021-11-10] MEDS: MIRTAZAPINE 15 MG TAB PO SCH (20:26)
[2021-11-11] MEDS: LEVOTHYROXINE 75MCG TABLET (0.075MG) PO SCH (05:06)
[2021-11-11 05:15] VITALS: BP 128/64
[2021-11-11 06:18] LABS: BASO # 0.1 10^3/uL (0.0-0.2); BASO % 0.5 % (0.0-1.0); EOS # 0.2 10^3/uL (0.0-0.5); HEMATOCRIT 43.9 % (36.0-47.0); HEMOGLOBIN 14.5 g/dl (12.0-15.5); LYMPH # 1.9 10^3/uL (1.5-5.0); LYMPH % 18.9 % (24.0-44.0); MEAN CORPUSCULAR HEMOGLOBIN 30.8 pg (27.0-33.0); MEAN CORPUSCULAR VOLUME 93.2 fl (80.0-96.0); MONO # 1.4 10^3/uL (0.0-0.8); MONO % 13.8 % (2.0-8.0); NEUTROPHILS # 6.6 10^3/uL (1.5-8.5); NEUTROPHILS % 64.2 % (36.0-66.0); PLATELET COUNT, AUTOMATED 333 10^3/uL (150-450); RED BLOOD COUNT 4.71 10^6/uL (4.00-5.40); WHITE BLOOD COUNT 10.2 10^3/uL (4.0-10.0)
[2021-11-11 06:46] VITALS: BP 121/92
[2021-11-11 06:55] LABS: BLOOD UREA NITROGEN 29 MG/DL (7-18); CALCIUM LEVEL 9.5 MG/DL (8.8-10.2); CARBON DIOXIDE LEVEL 28 MEQ/L (21-32); CHLORIDE LEVEL 108 MEQ/L (98-107); CREATININE FOR GFR 0.89 MG/DL (0.55-1.30); GLOMERULAR FILTRATION RATE > 60.0 (>39); GLUCOSE, FASTING 135 MG/DL (70-100); POTASSIUM SERUM 4.1 MEQ/L (3.5-5.1); SODIUM LEVEL 144 MEQ/L (136-145)
[2021-11-11] MEDS: QUEtiapine FUMARATE 100 MG TAB PO SCH ×2 (10:02→12:16)
[2021-11-11] MEDS: MIRALAX *UNIT DOSE* 17GM PACKET PO SCH (10:02)
[2021-11-11] MEDS: CEFDINIR 300 MG CAP (OMNICEF) PO SCH ×3 (10:02→20:32)
[2021-11-11] MEDS: ASPIRIN 81 MG CHEW TABLET PO SCH ×2 (10:02→12:16)
[2021-11-11] MEDS: ENOXAPARIN 40MG/0.4ML SYRINGE (J1650 PER 10MG) SC SCH (10:03)
[2021-11-11] MEDS ORDERED: LORazepam 2 MG/ML VIAL IM ONE (13:00)
[2021-11-11] MEDS ORDERED: QUEtiapine FUMARATE 100 MG TAB PO SCH (18:00)
[2021-11-11] MEDS: MIRTAZAPINE 15 MG TAB PO SCH (20:32)
[2021-11-12] MEDS: LEVOTHYROXINE 75MCG TABLET (0.075MG) PO SCH (05:32)
[2021-11-12 06:00] VITALS: BP 134/80
[2021-11-12] MEDS: ASPIRIN 81 MG CHEW TABLET PO SCH (09:58)
[2021-11-12] MEDS: MIRALAX *UNIT DOSE* 17GM PACKET PO SCH (09:58)
[2021-11-12] MEDS: CEFDINIR 300 MG CAP (OMNICEF) PO SCH ×2 (09:58→21:16)
[2021-11-12] MEDS: ENOXAPARIN 40MG/0.4ML SYRINGE (J1650 PER 10MG) SC SCH (09:58)
[2021-11-12] MEDS: MIRTAZAPINE 15 MG TAB PO SCH (21:16)
[2021-11-13] MEDS: LEVOTHYROXINE 75MCG TABLET (0.075MG) PO SCH (05:29)
[2021-11-13 06:46] VITALS: BP 132/80
[2021-11-13] MEDS: ENOXAPARIN 40MG/0.4ML SYRINGE (J1650 PER 10MG) SC SCH (09:20)
[2021-11-13] MEDS: MIRALAX *UNIT DOSE* 17GM PACKET PO SCH (09:20)
[2021-11-13] MEDS: ASPIRIN 81 MG CHEW TABLET PO SCH (09:20)
[2021-11-13] MEDS: CEFDINIR 300 MG CAP (OMNICEF) PO SCH ×2 (09:20→21:11)
[2021-11-13] MEDS: MIRTAZAPINE 15 MG TAB PO SCH (21:11)
[2021-11-13 21:55] VITALS: BP 107/85
[2021-11-14] MEDS: ACETAMINOPHEN TAB 650MG DOSE (2X325MG) PO PRN (02:25)
[2021-11-14 02:34] LABS: BASO # 0.1 10^3/uL (0.0-0.2); BASO % 0.7 % (0.0-1.0); EOS # 0.1 10^3/uL (0.0-0.5); EOS % 0.7 % (0.0-3.0); HEMATOCRIT 44.9 % (36.0-47.0); HEMOGLOBIN 14.9 g/dl (12.0-15.5); LYMPH # 1.8 10^3/uL (1.5-5.0); LYMPH % 16.8 % (24.0-44.0); MEAN CORPUSCULAR HEMOGLOBIN 30.9 pg (27.0-33.0); MEAN CORPUSCULAR HGB CONC 33.2 g/dl (32.0-36.5); MEAN CORPUSCULAR VOLUME 93.2 fl (80.0-96.0); MONO # 1.5 10^3/uL (0.0-0.8); NEUTROPHILS # 7.4 10^3/uL (1.5-8.5); NEUTROPHILS % 67.4 % (36.0-66.0); PLATELET COUNT, AUTOMATED 363 10^3/uL (150-450); RED BLOOD COUNT 4.82 10^6/uL (4.00-5.40)
[2021-11-14 02:57] LABS: MONO % 13.9 % (2.0-8.0)
[2021-11-14 03:19] LABS: ALBUMIN 3.4 GM/DL (3.2-5.2); BILIRUBIN,TOTAL 0.6 MG/DL (0.2-1.0); CALCIUM LEVEL 9.4 MG/DL (8.8-10.2); CREATININE FOR GFR 1.03 MG/DL (0.55-1.30); FREE T4 1.27 NG/DL (0.76-1.46); GLOMERULAR FILTRATION RATE 55.5 (>39); POTASSIUM SERUM 4.4 MEQ/L (3.5-5.1); THYROID STIMULATING HORMONE 4.21 uIU/ML (0.358-3.740); TOTAL PROTEIN 7.6 GM/DL (6.4-8.2)
[2021-11-14 05:47] VITALS: BP 111/78
[2021-11-14] MEDS: LEVOTHYROXINE 75MCG TABLET (0.075MG) PO SCH (06:05)
[2021-11-14 06:50] LABS: APPEARANCE, URINE MANUAL HAZY (CLEAR); COLOR, URINE MANUAL YELLOW (YELLOW)
[2021-11-14 06:51] LABS: BILIRUBIN, URINE MANUAL NEGATIVE (NEGATIVE); BLOOD URINE MANUAL POSITIVE (NEGATIVE); GLUCOSE, URINE (UA) MANUAL NEGATIVE (NEGATIVE); KETONE, URINE MANUAL 1+ mg/dL (NEGATIVE); LEUKOCYTE ESTERASE, URINE MAN POSITIVE (NEGATIVE); NITRITE, URINE MANUAL NEGATIVE (NEGATIVE); PROTEIN, URINE MANUAL 1+ mg/dL (NEGATIVE); SPECIFIC GRAVITY,URINE MANUAL 1.025 (1.002-1.035); UROBILINOGEN, URINE MANUAL NORMAL (NORMAL)
[2021-11-14 07:05] LABS: WBC, URINE 30-40 /hpf (0-3)
[2021-11-14 07:06] LABS: BACTERIA, URINE SMALL AMOUNT; HYALINE CAST, URINE NONE SEEN /lpf (0-1); MUCUS, URINE MOD AMOUNT (NEGATIVE); OTHER SEDIMENT, URINE MEAT FIBERS; RBC, URINE TNTC /hpf (0-3); SQUAMOUS EPITHELIAL CELL URINE NONE SEEN /hpf (SMALL AMT)
[2021-11-14] MEDS: MIRALAX *UNIT DOSE* 17GM PACKET PO SCH (09:00)
[2021-11-14] MEDS: BACTRIM 160MG/800MG DS TAB PO SCH ×2 (09:00→20:58)
[2021-11-14] MEDS: ENOXAPARIN 40MG/0.4ML SYRINGE (J1650 PER 10MG) SC SCH (09:51)
[2021-11-14] MEDS: ASPIRIN 81 MG CHEW TABLET PO SCH (09:52)
[2021-11-14] MEDS ORDERED: LORazepam 1 MG TAB PO PRN (14:10)
[2021-11-14] MEDS ORDERED: BACTRIM 160MG/800MG DS TAB PO SCH (21:00)
[2021-11-15 05:35] VITALS: BP 120/79
[2021-11-15] MEDS: ACETAMINOPHEN TAB 650MG DOSE (2X325MG) PO PRN (05:38)
[2021-11-15] MEDS: LEVOTHYROXINE 75MCG TABLET (0.075MG) PO SCH (05:38)
[2021-11-15 07:01] LABS: BASO # 0.1 10^3/uL (0.0-0.2); BASO % 0.5 % (0.0-1.0); HEMATOCRIT 45.8 % (36.0-47.0); HEMOGLOBIN 15.4 g/dl (12.0-15.5); LYMPH # 0.6 10^3/uL (1.5-5.0); LYMPH % 6.7 % (24.0-44.0); MEAN CORPUSCULAR HEMOGLOBIN 30.6 pg (27.0-33.0); MEAN CORPUSCULAR HGB CONC 33.6 g/dl (32.0-36.5); MEAN CORPUSCULAR VOLUME 90.9 fl (80.0-96.0); MONO # 1.1 10^3/uL (0.0-0.8); MONO % 11.4 % (2.0-8.0); NEUTROPHILS # 7.7 10^3/uL (1.5-8.5); NEUTROPHILS % 80.8 % (36.0-66.0); PLATELET COUNT, AUTOMATED 351 10^3/uL (150-450); RED BLOOD COUNT 5.04 10^6/uL (4.00-5.40); WHITE BLOOD COUNT 9.5 10^3/uL (4.0-10.0)
[2021-11-15 07:34] LABS: CALCIUM LEVEL 9.6 MG/DL (8.8-10.2); CREATININE FOR GFR 1.18 MG/DL (0.55-1.30); GLOMERULAR FILTRATION RATE 47.4 (>39); POTASSIUM SERUM 4.4 MEQ/L (3.5-5.1)
[2021-11-15] MEDS: ASPIRIN 81 MG CHEW TABLET PO SCH (09:02)
[2021-11-15] MEDS: BACTRIM 160MG/800MG DS TAB PO SCH ×2 (09:03→22:40)
[2021-11-15] MEDS: MIRALAX *UNIT DOSE* 17GM PACKET PO SCH (09:03)
[2021-11-15] MEDS: ENOXAPARIN 40MG/0.4ML SYRINGE (J1650 PER 10MG) SC SCH (09:03)
[2021-11-16 06:00] VITALS: BP 168/89
[2021-11-16] MEDS: LEVOTHYROXINE 75MCG TABLET (0.075MG) PO SCH ×2 (06:12→23:58)
[2021-11-16] MEDS: MIRALAX *UNIT DOSE* 17GM PACKET PO SCH (08:47)
[2021-11-16] MEDS: BACTRIM 160MG/800MG DS TAB PO SCH ×3 (08:57→19:55)
[2021-11-16] MEDS: ENOXAPARIN 40MG/0.4ML SYRINGE (J1650 PER 10MG) SC SCH (08:57)
[2021-11-16] MEDS: ASPIRIN 81 MG CHEW TABLET PO SCH ×2 (08:57→09:00)
[2021-11-16] MEDS ORDERED: ACETAMINOPHEN TAB 650MG DOSE (2X325MG) PO PRN (19:25)
[2021-11-16] MEDS ORDERED: SCOPOLAMINE 1MG TRANSDERMAL PATCH TOP PRN (19:25)
[2021-11-16] MEDS ORDERED: ONDANSETRON 4MG 2ML VIAL IV PRN (19:25)
[2021-11-16] MEDS ORDERED: MORPHINE 2 MG/ML 1ML VIAL IV PRN (19:25)
[2021-11-16] MEDS ORDERED: LORazepam 2 MG/ML VIAL IV PRN (19:25)
[2021-11-17] MEDS: MORPHINE 10MG/0.5ML ORAL CONCENTRATE SOLUTION U/D SL PRN (05:06)
[2021-11-17] MEDS: ENOXAPARIN 40MG/0.4ML SYRINGE (J1650 PER 10MG) SC SCH (09:42)
[2021-11-17] MEDS: ASPIRIN 81 MG CHEW TABLET PO SCH (09:51)
[2021-11-17] MEDS: MIRALAX *UNIT DOSE* 17GM PACKET PO SCH (10:07)
[2021-11-18] MEDS: LORazepam 2 MG TAB PO PRN (01:34)
[2021-11-18] MEDS: MORPHINE 10MG/0.5ML ORAL CONCENTRATE SOLUTION U/D SL PRN (16:37)
[2021-11-20] MEDS: MORPHINE 10MG/0.5ML ORAL CONCENTRATE SOLUTION U/D SL PRN ×2 (04:14→09:04)
[2021-11-20] MEDS: LORazepam 2 MG TAB PO PRN (10:26)
[2021-11-21] MEDS: MORPHINE 10MG/0.5ML ORAL CONCENTRATE SOLUTION U/D SL PRN (01:25)
== END 2021-11-21 09:00 | disposition expired | DRG 884 ==
LOC: M ED 11:17 → M ED INP 15:07 → ENRESERV 15:20 → M MSPAV 15:56
PROVIDERS: ADMIT Family Medicine; ATTEND Internal Medicine
DX: F03.91 Unspecified dementia, unspecified severity, with behavioral disturbance (principal); E43 Unspecified severe protein-calorie malnutrition; G93.41 Metabolic encephalopathy; N17.9 Acute kidney failure, unspecified; I67.89 Other cerebrovascular disease; N39.0 Urinary tract infection, site not specified; R47.01 Aphasia; E03.9 Hypothyroidism, unspecified; K21.9 Gastro-esophageal reflux disease without esophagitis; F39 Unspecified mood [affective] disorder; B96.20 Unspecified Escherichia coli [E. coli] as the cause of diseases classified elsewhere; E86.0 Dehydration; R57.1 Hypovolemic shock; D32.9 Benign neoplasm of meninges, unspecified; R62.7 Adult failure to thrive; K44.9 Diaphragmatic hernia without obstruction or gangrene; H40.9 Unspecified glaucoma; H81.10 Benign paroxysmal vertigo, unspecified ear; Z66 Do not resuscitate; Z86.73 Personal history of transient ischemic attack (TIA), and cerebral infarction without residual deficits; Z20.822 Contact with and (suspected) exposure to COVID-19; Z79.890 Hormone replacement therapy; Z79.899 Other long term (current) drug therapy; Z87.891 Personal history of nicotine dependence; Z98.49 Cataract extraction status, unspecified eye; Z90.49 Acquired absence of other specified parts of digestive tract; Z51.5 Encounter for palliative care